=== PATIENT | male | born 1940 | race Hispanic/Latino ===

== ENCOUNTER → 2019-03-24 | Outpatient (CLI) | payer MEDICARE, OTHER ==
[~2019-03-24] MED LIST: ADVAIR 100-501 EACH; ALBUTEROL0.63 MG/3; ASPIRIN81 MG; ATORVASTATIN CA20 MG PO; CLOBETASOL1 EA/15 GM; FUROSEMIDE20 MG; GABAPENTIN300 MG PO; GLIPIZIDE5 MG PO; LISINOPRIL2.5 MG PO; LOSARTAN-HCTZ1 EACH; METFORMIN HCL500 MG PO; PRAVASTATIN SOD10 MG PO; RISPERIDONE1 MG
[2019-03-24 13:10] LABS: BASOPHILS % 0.6 % (0.0-1.0); EOSINOPHILS # (AUTO) 0.2 (0.0-0.4); EOSINOPHILS % 2.4 % (0.0-6.0); HEMATOCRIT 30.6 % (38.2-49.6); LYMPHOCYTES # (AUTO) 1.3 (1.0-3.2); LYMPHOCYTES % 17.7 % (18.0-39.1); MEAN CORPUSCULAR HEMOGLOBIN 28.5 pg (28-32); MEAN CORPUSCULAR HGB CONC 32.7 g/dL (31-35); MEAN CORPUSCULAR VOLUME 87.2 fL (81-99); MONOCYTES # (AUTO) 0.8 (0.2-0.8); MONOCYTES % 11.3 % (4.4-11.3); NEUTROPHILS # (AUTO) 4.9 (2.1-6.9); NEUTROPHILS % 67.7 % (38.7-80.0); PLATELET COUNT 235 x10e3/uL (140-360); RED BLOOD COUNT 3.51 x10e6/uL (4.3-5.7); RED CELL DISTRIBUTION WIDTH 13.8 % (11.7-14.4)
== END ==
LOC: DX 11:28 → EDSTATUS 03-27 08:30
PROVIDERS: ATTEND Internal Medicine Gastroenterology
DX: Z01.818 Encounter for other preprocedural examination (principal); Z12.11 Encounter for screening for malignant neoplasm of colon; E11.9 Type 2 diabetes mellitus without complications; I10 Essential (primary) hypertension; E66.3 Overweight; Z71.3 Dietary counseling and surveillance
CPT/HCPCS: 36415; 85025; 93005

== ENCOUNTER 2019-07-31 07:39 | Observation (INO) | payer MEDICARE, OTHER ==
[2019-07-28 09:28] LABS: BASOPHILS % 0.6 % (0.0-1.0); EOSINOPHILS # (AUTO) 0.3 (0.0-0.4); EOSINOPHILS % 3.7 % (0.0-6.0); HEMATOCRIT 32.4 % (38.2-49.6); LYMPHOCYTES # (AUTO) 1.6 (1.0-3.2); LYMPHOCYTES % 22.4 % (18.0-39.1); MEAN CORPUSCULAR HEMOGLOBIN 27.5 pg (28-32); MEAN CORPUSCULAR HGB CONC 30.9 g/dL (31-35); MEAN CORPUSCULAR VOLUME 89.3 fL (81-99); MONOCYTES # (AUTO) 0.7 (0.2-0.8); MONOCYTES % 9.7 % (4.4-11.3); NEUTROPHILS # (AUTO) 4.5 (2.1-6.9); NEUTROPHILS % 63.3 % (38.7-80.0); PLATELET COUNT 220 x10e3/uL (140-360); RED BLOOD COUNT 3.63 x10e6/uL (4.3-5.7); RED CELL DISTRIBUTION WIDTH 14.3 % (11.7-14.4)
[2019-07-28 09:41] LABS: INR 0.92; PARTIAL THROMBOPLASTIN TIME 29.1 seconds (23.8-35.5); PROTHROMBIN TIME 12.9 seconds (11.9-14.5)
[2019-07-28 09:49] LABS: ALBUMIN 4.2 g/dL (3.5-5.0); ALBUMIN/GLOBULIN RATIO 1.4 (0.8-2.0); ANION GAP 13.5 mmol/L (8-16); CALCIUM 9.7 mg/dL (8.4-10.2); CHOL/HDL RATIO 2.8 (3.9-4.7); CREATININE, SERUM 1.46 mg/dL (0.72-1.25); POTASSIUM 4.5 mmol/L (3.5-5.1)
[~2019-07-31] VITALS: Ht 167.6 cm; Wt 85.5 kg
[2019-07-31] VITALS (17 sets, daily range): BP systolic 147–202; BP diastolic 59–86
[~2019-07-31 07:39] MED LIST changes: -ALBUTEROL0.63 MG/3; +ALBUTEROL0.63 MG/3 INH; -ASPIRIN81 MG; +ASPIRIN81 MG PO; -FUROSEMIDE20 MG; +FUROSEMIDE20 MG PO
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
--- OUTSIDE RECORDS SUMMARY | 2019-07-31 07:41 | XMS REPORT | Summary of Care ---
Author Author [facility] Organization [facility] Address Unknown Phone Unavailable Encounter HQ Juan Jr_natalia(FIN) [id number] Date(s): 11/14/17 - 11/14/17 [facility] [address] [place] [address]- Encounter Diagnosis Causalgia of left upper limb (Final) - 11/20/17 Discharge Disposition: Home or Self Care Attending Physician: Ric Aguero MD Referring Physician: Ric Aguero MD Vital Signs No data available for this section Problem List No data available for this section Allergies, Adverse Reactions, Alerts No data available for this section Medications No data available for this section Results No data available for this section Immunizations No data available for this section Procedures No data available for this section Social History No data available for this section Assessment and Plan No data available for this section
--- OUTSIDE RECORDS SUMMARY | 2019-07-31 07:41 | XMS REPORT | Summary of Care ---
Author Author [facility] Organization [facility] Address Unknown Phone Unavailable Encounter HQ Juan Jr_natalia(FIN) [id number] Date(s): 07/10/16 - 07/10/16 [facility] - [place] [address] [address], [address] [place] [phone] Discharge Disposition: Home or Self Care Attending Physician: SundayRosi MD Vital Signs No data available for [...]
--- OUTSIDE RECORDS SUMMARY | 2019-07-31 07:42 | XMS REPORT ---
Author Organization Unknown Address [address] [place] [address] Phone [phone] Care Team Providers Care Scrap Carrier Name Role Phone SACHIN "QIAN GALARZA MD 3 [phone] Allergies Code Code System Name Reaction Severity Status Onset 0370 RxNorm Codeine Abdominal Pain Active Medications Name Status Start Date Stop Date Accu-Chek Paige Plus Meter Completed 10/31 Accu-Chek Paige Plus test strips Active Not available Accu-Chek Softclix Lancets Active Not a vailable acetaminophen 300 mg-codeine 30 mg tablet Completed 08/28/2016 amoxicillin 500 mg capsule Completed 01/15 azithromycin 250 mg tablet Completed 08/02 azithromycin 500 mg tablet Completed 01/15 clotrimazole 1 % topical cream APPLY TO THE AFFECTED AND SURROUNDING AREAS OF SKIN BY TOPICAL ROUTE 2 TIMES PER DAY IN THE MORNING AND EVENING Completed 04/24 cyanocobalamin (vitamin B-12) 2,500 mcg tablet Take 1 tablet every day by oral route. Active Not available diltiazem 60 mg tablet Take 1 tablet every 6 hours by oral route as directed for 90 days. Completed 05/02/2016 enalapril maleate 5 mg tablet Take 1 tablet every day by oral route as directed for 90 days. Completed 05/02/2016 famotidine 20 mg tablet Completed 09/07/19 17 ferrous sulfate 325 mg (65 mg iron) tabl et Take 1 tablet every day by oral route for 90 days. Completed 09/06/2016 fluticasone 50 mcg/actuation nasal spray ,suspension USE 2 SPRAY(S) TWICE A DAY BY INTRANASAL ROUTE DIRECTED FOR 30 DAYS Active Not available furosemide 20 mg tablet Active Not avai lable gabapentin 300 mg capsule Completed 2016 gabapentin 400 mg capsule Take 1 capsule 3 times a day by oral route for 30 days. Completed 09/18/2016 gabapentin 600 mg tablet Completed 017 glipizide 5 mg tablet Completed 10/31/2016 glipizide ER 5 mg tablet, extended relea se 24 hr take 1 tablet once a day with breakfast Active Not available ketoconazole 2 % topical cream APPLY TO THE AFFECTED AREA(S) BY TOPICAL ROUTE ONCE DAILY Active Not available Linzess 145 mcg capsule Take 1 capsule every day by oral route for 13 days. Completed 01/15/2017 lisinopril 2.5 mg tablet Take 1 tablet by mouth once a day Completed 12/19 losartan 50 mg-hydrochlorothiazide 12.5 mg tablet Take 1 tablet every day by oral route Active N ot available Lyrica 100 mg capsule 1 PO in a.m. and 1 PO at noon Active Not avail able Lyrica 50 mg capsule Take 1 capsule every day by oral route at bedtime. Active Not available Lyrica 75 mg capsule Take 1 capsule twice a day by oral route for 7 days. Completed 01/18/2017 megestrol 400 mg/10 mL (40 mg/mL) oral suspension Completed 10/31/2016 meloxicam 15 mg tablet Completed 8 metformin 1,000 mg tablet TAKE 1 TAB TWICE A DAY Active Not available methylprednisolone 4 mg tablets in a dose pack Completed 03/31/2016 05/02/2016 Milk of Magnesia 400 mg/5 mL oral suspen donna take 1 tablespoons once at bedtime Completed 12/19 montelukast 10 mg tablet Take 1 tablet every day by oral route as directed for 90 days. Completed 05/02/2016 Movantik 25 mg tablet Take 1 tablet every day by oral route for 90 days. Completed 09/06/2016 Nasonex 50 mcg/actuation Perry Perry 2 sprays every day by intranasal route for 90 days. Completed 04/24/2017 nortriptyline 10 mg capsule Completed 08/18 omeprazole 40 mg capsule,delayed release Completed 09/06/2016 ondansetron 8 mg disintegrating tablet Completed 11/07/2016 ondansetron HCl 8 mg tablet Completed 08/17 potassium chloride 10MEQ TAKE ONE TABLET ONCE DAILY Completed 05/15 potassium chloride ER 10 mEq tablet,exte nded release 10 MEQ TAKE ONE TABLET ONCE DAILY Completed 10/13 potassium chloride ER 10 mEq tablet,extended release(part/cryst) Completed 10/02/2016 potassium chloride ER 20 mEq tablet,exte nded release Take 1 tablet every day by oral route for 90 days. Active Not available pravastatin 20 mg tablet take 1 tablet once a day Active Not available ProAir HFA 90 mcg/actuation aerosol inhaler Completed 05/02/2016 quetiapine 25 mg tablet Completed 03/31/19 17 sulfamethoxazole 800 mg-trimethoprim 160 mg tablet Completed 08/28/2016 Tessalon Perles 100 mg capsule Take 1 capsule 3 times a day by oral route as needed for 10 days. Completed 08/02/2016 tramadol 50 mg tablet TAKE 1 TABLET(S) EVERY 8 HOURS BY ORAL ROUTE NEEDED FOR 30 DAYS. Active Not available trazodone 100 mg tablet Completed 08/29/19 17 triamcinolone acetonide 0.1 % topical cream Active Not available Vitamin C 1,000 mg tablet Take 1 tablet every day by oral route as directed. Completed 09/06/2016 Vitamin D3 1,000 unit capsule Take 1 capsule every day by oral route. Completed 10/13/2016 vitamin E (dl, acetate) 400 unit capsule Take 1 capsule every day by oral route. Completed 10/31/2016 vitamin E 400 unit capsule Take 1 capsule every day by oral route. 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 Psoriasis Active 11/07/2016 Obstructive Sleep Apnea Syndrome Active 02/15/2017 Procedures Date Name Performed by 03/19/2015 Cholecystectomy Information not avai lable 03/31/2016 Electrocardiogram [facility] [address] [facility] [address] [place] [address] (Work [place]) 08/24/2016 US, Abdomen [facility]) [address] [place], [place] [id number] (Work Place) 08/28/2016 US, Abdomen [facility] [address] [facility] [address] [place] [address] (Work Place) 08/30/2016 US, Abdomen [address] [place] [id number] (Work Place) 06/07/2017 US, Echocardiogram, Transthoracic, Compl ete, W/ Color Flow [address] [place] [address] (Work Place) 05/25/[address] [place] [address] (Work Place) 05/30/2017 US, Echocardiogram, Transthoracic, Compl ete, W/ Color Flow [address] [place] [address] (Work Place) Lab Results Date Name Specimen Result Interpretation Description Value Range Status Address 01/15/2017 HbA1C (Hemoglobin a1C), Blood High Hemogl obin a1C 7.7 % 4.8-5.6 % Final [facility]: [address] Estim. Avg Glu (EAG) 174 mg/dL Final [facility] Laboratory: [address]055 Araceli Gilliam [address] [place] [address] 01/15/2017 CBC W/ Auto Diff Wbc 8.3 x10e3/uL 3.4- 10.8 x10e3/uL Final [facility] Laboratory: [address]055 [address] Tony [address] Rbc 4.20 x10e6/uL 4.14-5.80 x10e6/u L Final [facility] Laboratory: 9055 Arac[address] [place] [address] Low Hemoglobin 11.7 g/dL 12.6-17.7 g/dL Final [facility] Laboratory: [address] Tony [address] Low Hematocrit 35.1 % 37.5-51.0 % Final [facility] Laboratory: [address] Arac[address] [place] [address] Mcv 84 fL 79-97 fL Final [facility] Laboratory: [address] Mch 27.9 pg 26.6-33.0 pg Final [facility] Laboratory: [address]055 [address] Mchc 33.3 g/dL 31.5-35.7 g/dL Final [facility] Laboratory: [address] Rdw 13.4 % 12.3-15.4 % Final [facility] Laboratory: [address] Ar[address] [place] Platelets 351 x10e3/uL 150-379 x10e3 /uL Final [facility] Laboratory: [address] [place] Neutrophils 57 % not estab. % Flaca l [facility] Laboratory: [address] [place] Lymphs 24 % not estab. % Final [facility] Laboratory: 9055 Araceli Patel, [place] Monocytes 8 % not estab. % Final [facility] Laboratory: [address] Ar[address] Patel, [place] Eos 10 % not estab. % Final [facility] Laboratory: 9055 Araceli Tony [facility] [place], [place] Basos 1 % not estab. % Final Rosemarie alejandro [facility] Laboratory: [address] Pat[address] [place] Immature Cells comment Cancel led [facility] Laboratory: [address] [place] Neutrophils (Absolute) 4.8 x10e3/uL 1.4-7.0 x10e3/uL Final [facility] Laboratory: [address] [place] Lymphs (Absolute) 2.0 x10e3/uL 0.7-3 .1 x10e3/uL Final [facility] Laboratory: [address] [place] Monocytes(absolute) 0.7 x10e3/uL 0.1 -0.9 x10e3/uL Final [facility] Laboratory: [address] Araceli Gilliam [facility] [place] High Eos (Absolute) 0.8 x10e3/uL 0.0-0.4 x10e3/uL Final [facility] Laboratory: [address] [place] Baso (Absolute) 0.1 x10e3/uL 0.0-0.2 x10e3/uL Final [facility] Laboratory: [address] [place] Immature Granulocytes 0 % not est ab. % Final [facility] Laboratory: [address] [place] Immature Grans (Abs) 0.0 x10e3/uL 0. 0-0.1 x10e3/uL Final [facility] Laboratory: [address] Hematology Comments: comment Cancelled [facility] [address] [facility] Lipid Panel, Serum Cholesterol, Tota l 148 mg/dL 100-199 mg/dL Final [facility]: [address] Araceli Gilliam [facility] [place] High Triglycerides 182 mg/dL 0-149 mg/dL Final [facility] Laboratory: [address] Ar[address] Tony [place] [address], [place] HDL Cholesterol 49 mg/dL >39 mg/dL [facility] Laboratory: [address] Tony [place] [address] [place] VLDL Cholesterol Julio 36 mg/dL 5-40 m g/dL Final [facility] Laboratory: [address] Ar[address]ha [address] LDL Cholesterol Calc 63 mg/dL 0-99 m g/dL Final [facility] Laboratory: [address] Ar[address] [place] [address] [place] 01/15/2017 CMP, Serum or Plasma High Glucose, Serum 165 mg/dL 65-99 mg/dL Final [facility] Laboratory: [address] Araceli Gilliam [facility] [place] Bun 26 mg/dL 8-27 mg/dL Final [facility] Laboratory: [address] Ar[address] [place] [address] [place] Creatinine, Serum 1.12 mg/dL 0.76-1. 27 mg/dL Final [facility] Laboratory: [address] Araceli Gilliam [facility] [place] eGFR If Nonafricn AM 64 mL/min/1.73 >59 mL/min/1.73 Final [facility] Laboratory: [address] Tony [place] [address] [place] eGFR If Africn AM 74 mL/min/1.73 >59 mL/min/1.73 Final [facility] Laboratory: [address] Tony [place] [address] [place] BUN/creatinine Ratio 23 10-24 [facility] Laboratory: 9055 Araceli Gilliam [facility] [place] Sodium, Serum 136 mmol/L 134-144 mmo l/L Final [facility] Laboratory: [address] Araceli Gilliam [facility] [place] High Potassium, Serum 5.4 mmol/L 3.5-5.2 mmol/L Final [facility] Laboratory: [address] Patel [place] Low Chloride, Serum 94 mmol/L 96-106 mmo l/L Final [facility] Laboratory: [address] Araceli Gilliam [facility] [place] Carbon Dioxide, Total 26 mmol/L 18-2 9 mmol/L Final [facility] Laboratory: [address] [place] [address] [place] Calcium, Serum 9.5 mg/dL 8.6-10.2 mg /dL Final [facility] Laboratory: [address] Protein, Total, Serum 7.0 g/dL 6.0-8 .5 g/dL Final [facility] Laboratory: [address] Ar[address] F[address]ha [address] Albumin, Serum 4.7 g/dL 3.5-4.8 g/dL Final [facility] Laboratory: [address] Globulin, Total 2.3 g/dL 1.5-4.5 g/d L Final [facility] Laboratory: [address] Ar[address] F[address] A/g Ratio 2.0 1.2-2.2 Final [facility] Laboratory: 55 Ar[address] Bilirubin, Total <0.2 mg/dL 0.0-1.2 mg/dL Final [facility] Laboratory: [facility] Araceli Fwporsha [address] Alkaline Phosphatase, S 97 IU/L 39-1 17 IU/L Final [facility] Laboratory: [facility] Araceli Fwporsha [address] Ast (Sgot) 14 IU/L 0-40 IU/L Final [facility] Laboratory: [facility] Arac[address] Alt (Sgpt) 16 IU/L 0-44 IU/L Final [facility] Laboratory: [facility] Araceli porsha [address] 10/05/2016 Fecal Occult Blood, Stool Fecal Globin (Medicare) by Immunochemistry not detected Final [facility] Laboratory: [address] [place] [address] 08/24/2016 H Pylori Urea Breath Test, Co2 Infrared H. Pylori Breath Test negative negative Final [facility] Laboratory: [facility] Araceli porsha [address] 08/02/2016 CMP, Serum or Plasma High Glucose, Serum 238 mg/dL 65-99 mg/dL Final [facility] Laboratory: 55 Ar[address] porsha [address] Bun 27 mg/dL 8-27 mg/dL Final [facility] Laboratory: 55 Araceli Fwporsha [address] High Creatinine, Serum 1.29 mg/dL 0.76-1. 27 mg/dL Final [facility] Laboratory: [address] [place], [place] [address]porsha [address] Low eGFR If Nonafricn AM 54 mL/min/1.73 >59 mL/min/1.73 Final [facility] Laboratory: [address] Araceli Patel [place] eGFR If Africn AM 62 mL/min/1.73 >59 mL/min/1.73 Final [facility] Laboratory: 9055 Araceli Patel, [place] BUN/creatinine Ratio 21 10-[address] [facility] Laboratory: 9055 Araceli Patel, [place] Sodium, Serum 137 mmol/L 134-144 mmo l/L Final [facility] Laboratory: 9055 Araceli Patel, [place] Potassium, Serum 5.0 mmol/L 3.5-5.2 mmol/L Final [facility] Laboratory: 9055 Araceli Patel, [place] Chloride, Serum 96 mmol/L 96-106 mmo l/L Final [facility] Laboratory: [address] Arac[address] Patel [place] Carbon Dioxide, Total 22 mmol/L 18-2 9 mmol/L Final [facility] Laboratory: [address] Silas Ivan Calcium, Serum 9.5 mg/dL 8.6-10.2 mg /dL Final [facility] Laboratory: 9055 Araceli Patel, [place] Protein, Total, Serum 6.9 g/dL 6.0-8 .5 g/dL Final [facility] Laboratory: 9055 Araceli Patel, [place] Albumin, Serum 4.6 g/dL 3.5-4.8 g/dL Final [facility] Laboratory: 9055 Araceli Patel, [place] Globulin, Total 2.3 g/dL 1.5-4.5 g/d L Final [facility] Laboratory: [address] Ar[address] Patel [place] A/g Ratio 2.0 1.2-2.2 Final [facility] Laboratory: 9055 Araceli Patel, [place] Bilirubin, Total 0.2 mg/dL 0.0-1.2 m g/dL Final [facility] Laboratory: [address] Ar[address] Patel [place] Alkaline Phosphatase, S 99 IU/L 39-1 17 IU/L Final [facility] Laboratory: 9055 Araceli Patel, [place] Ast (Sgot) 11 IU/L 0-40 IU/L [facility] Laboratory: 9055 Araceli Patel [place] Alt (Sgpt) 13 IU/L 0-44 IU/L Final [facility] Laboratory: [address] [place] [address], [place] 08/02/2016 TSH, Serum or Plasma Tsh 1.400 uI U/mL 0.450-4.500 uIU/mL Final [facility] Laboratory: [address] [place] [address], [place] 08/02/2016 Lipid Panel, Serum Cholesterol, Tota l 138 mg/dL 100-199 mg/dL Final [facility]: [address] High Triglycerides 179 mg/dL 0-149 mg/dL Final [facility] Laboratory: [address] HDL Cholesterol 43 mg/dL >39 mg/dL F inal [facility] Laboratory: [address] VLDL Cholesterol Julio 36 mg/dL 5-40 m g/dL Final [facility] Laboratory: [address] LDL Cholesterol Calc 59 mg/dL 0-99 m g/dL Final [facility] Laboratory: [address] 08/02/2016 HbA1C (Hemoglobin a1C), Blood High Hemogl obin a1C 6.8 % 4.8-5.6 % Final [facility]: [address] Estim. Avg Glu (EAG) 148 mg/dL Final [facility] Laboratory: [address] [place] [address], [place] 08/02/2016 T4, Total, Serum Thyroxine (T4) 7.2 ug/dL 4.5-12.0 ug/dL Final [facility] Laboratory: [address] 08/02/2016 Prealbumin, Serum Prealbumin 29 mg/dL 9 -32 mg/dL Final [facility] Laboratory: [address] [place] [address], [place] 08/02/2016 CBC W/ Auto Diff Wbc 7.1 x10e3/uL 3.4- 10.8 x10e3/uL Final [facility] Laboratory: [address] Rbc 4.32 x10e6/uL 4.14-5.80 x10e6/u L Final [facility] Laboratory: [address] Low Hemoglobin 12.2 g/dL 12.6-17.7 g/dL Final [facility] Laboratory: [address] Low Hematocrit 36.6 % 37.5-51.0 % Final [facility] Laboratory: [address]055 Araceli Patel, [place] Mcv 85 fL 79-97 fL Final [facility] Laboratory: [address] Araceli Patel, [place] Mch 28.2 pg 26.6-33.0 pg Final [facility] Laboratory: 9055 Araceli Patel, [place] Mchc 33.3 g/dL 31.5-35.7 g/dL Final [facility] Laboratory: 9055 Araceli Patel, [place] Rdw 14.0 % 12.3-15.4 % Final [facility] Laboratory: [address] Ivan Platelets 297 x10e3/uL 150-379 x10e3 /uL Final [facility] Laboratory: [address]055 Araceli Patel, [place] Neutrophils 68 % Final [facility] Laboratory: [address] Lymphs 20 % Final [facility] Laboratory: [address]055 Araceli Patel, [place] Monocytes 11 % Final [facility] Laboratory: 9055 Araceli Patel, [place] Eos 1 % Final [facility] Laboratory: 9055 Araceli Patel, [place] Basos 0 % Final [facility] Laboratory: [address]055 Araceli Patel [place] Immature Cells comment Cancel led [facility] Laboratory: [address]055 Arac[address] Patel [place] Neutrophils (Absolute) 4.8 x10e3/uL 1.4-7.0 x10e3/uL Final [facility] Laboratory: [address] Ivan Lymphs (Absolute) 1.4 x10e3/uL 0.7-3 .1 x10e3/uL Final [facility] Laboratory: 9055 Araceli Patel, [place] Monocytes(absolute) 0.8 x10e3/uL 0.1 -0.9 x10e3/uL Final [facility] Laboratory: 9055 Araceli Patel, [place] Eos (Absolute) 0.1 x10e3/uL 0.0-0.4 x10e3/uL Final [facility] Laboratory: [address]055 Araceli Patel, [place] Baso (Absolute) 0.0 x10e3/uL 0.0-0.2 x10e3/uL Final [facility] Laboratory: [address] Immature Granulocytes 0 % Final [facility] Laboratory: [address] Immature Grans (Abs) 0.0 x10e3/uL 0. 0-0.1 x10e3/uL Final [facility] Laboratory: [address] Hematology Comments: comment Cancelled [facility] Laboratory: [address] 04/05/2016 CBC W/ Auto Diff White Blood Cell 6 .3 K/mm3 4.5-12.5 K/mm3 Final [facility] (Lab): [address], [place] Low Red Blood Cell 3.65 mill/mm3 4.0-5.8 mill/mm3 Final [facility] (Lab): [address], [place] Low Hemoglobin 10.4 gram/dL 13.0-17.5 gr am/dL Final [facility] (Lab): [address], [place] Low Hematocrit 31.7 % 42.0-52.0 % Final [facility] (Lab): [address], [place] Mean Cell Volume 86.9 fL 80.4-[address] [facility] (Lab): [address], [place] Mean Cell HGB 28.5 pg 27.0-33.[address] [facility] (Lab): [address], [place] Low Mean Cell HGB Concetration 32.8 g/dL 33.0-36.0 g/dL Final [facility] (Lab): [address], [place] Red Cell Distribution Width 15.8 % 1 1.6-16.2 % Final [facility] (Lab): [address], [place] Platelet Count 162 K/mm3 150-450 K/m m[address] [facility] (Lab): [address], [place] Mean Platelet Volume 8.4 fL 6.7-10.[address] [facility] (Lab): [address], [place] High Neutrophil % 78.0 % 39.0-69.0 % [facility] [facility] (Lab): [address], [place] Low Lymphocyte % 12.4 % 23.0-38.0 % [facility] [address], [place] Monocyte % 7.0 % 3.0-8.0 % [facility] (Lab): [address], [place] Eosinophil % 2.3 % 0.0-5.0 % Final [facility] (Lab): [address], [place] Basophil % 0.3 % 0.0-1.0 % Final [facility] (Lab): [address], [place] Neutrophil # 4.90 K/mm3 1.8-7.7 K/mm [address] [facility] (Lab): [address], [place] Low Lymphocyte # 0.8 K/mm3 1.0-5.0 K/mm3 [facility] (Lab): [address], [place] Monocyte # 0.40 K/mm3 0-0.8 K/mm3 [facility] (Lab): [address], [place] Eosinophil # 0.1 K/mm3 0.0-0.5 K/mm3 [facility] (Lab): [address], [place] Basophil # 0.0 K/mm3 0.0-0.2 K/mm3 [facility] (Lab): [address], [place] Performing Lab: [facility] (Lab): [address], [place] 04/05/2016 BMP, Blood Sodium 141 mmol/L 135-148 mm ol/L [facility] (Lab): [address], [place] Potassium 4.3 mmol/L 3.5-5.1 mmol/L [facility] (Lab): [address], [place] Chloride 106 mmol/L 101-109 mmol/L [facility] (Lab): [address], [place] Carbon Dioxide 29.9 mmol/L 21-32 mmo l/L [facility] (Lab): [address], [place] Low Anion Gap 5 mmol/L 10-20 mmol/L Flaca l [facility] (Lab): [address], [place] High Glucose 206 mg/dL 74-106 mg/dL Final [facility] (Lab): [address], [place] Blood Urea Nitrogen 16 mg/dL 3-21 mg /dL Final [facility] (Lab): [address], [place] Glomerular Filtration Rate > 60 mL/m in >=60 mL/min Final [facility] (Lab): [address], [place] Creatinine 0.99 mg/dL 0.55-1.3 mg/dL Final [facility] (Lab): [address], [place] Low Calcium 8.1 mg/dL 8.4-10.2 mg/dL Fin al [facility] (Lab): [address] [place] Performing Lab: Final [facility] (Lab): [address], [place] 04/05/2016 Glucose, Fingerstick, Blood (Glucometer) High Glubed 192 mg/dL 74-106 mg/dL Final [facility] (Lab ): [address] [place] Performing Lab: Final [facility] (Lab): [address], [place] 04/05/2016 Glucose, Fingerstick, Blood (Glucometer) High Glubed 347 mg/dL 74-106 mg/dL Final [facility] (Lab ): [address] [place] Performing Lab: Final [facility] (Lab): [address], [place] 04/05/2016 Glucose, Fingerstick, Blood (Glucometer) High Glubed 177 mg/dL 74-106 mg/dL Final [facility] (Lab ): [address] [place] Performing Lab: Final [facility] (Lab): [address], [place] 04/04/2016 Glucose, Fingerstick, Blood (Glucometer) Glubed 103 mg/dL 74- 106 mg/dL Final [facility] (Lab ): [address], [place] Performing Lab: Final [facility] (Lab): [address], [place] 04/04/2016 Glucose, Fingerstick, Blood (Glucometer) High Glubed 238 mg/dL 74-106 mg/dL Final [facility] (Lab ): [address], [place] Performing Lab: Final [facility] (Lab): [address], [place] 04/04/2016 Glucose, Fingerstick, Blood (Glucometer) High Glubed 226 mg/dL 74-106 mg/dL Final [facility] (Lab ): [address], [place] Performing Lab: Final [facility] (Lab): [address], [place] 04/04/2016 Glucose, Fingerstick, Blood (Glucometer) High Glubed 125 mg/dL 74-106 mg/dL Final [facility] (Lab ): [address], [place] Performing Lab: Final [facility] (Lab): [address], [place] 04/03/2016 CBC W/ Auto Diff White Blood Cell 9 .3 K/mm3 4.5-12.5 K/mm3 Final [facility] (Lab): [address], [place] Low Red Blood Cell 3.60 mill/mm3 4.0-5.8 mill/mm3 Final [facility] (Lab): [address], [place] Low Hemoglobin 10.3 gram/dL 13.0-17.5 gr am/dL Final [facility] (Lab): [address], [place] Low Hematocrit 31.3 % 42.0-52.0 % Final [facility] (Lab): [address], [place] Mean Cell Volume 86.9 fL 80.4-[address] [facility] (Lab): [address], [place] Mean Cell HGB 28.6 pg 27.0-33.[address] [facility] (Lab): [address], [place] Low Mean Cell HGB Concetration 32.9 g/dL 33.0-36.0 g/dL Final [facility] (Lab): [address], [place] Red Cell Distribution Width 15.2 % 1 1.6-16.2 % Final [facility] (Lab): [address], [place] Platelet Count 192 K/mm3 150-450 K/m m[address] [facility] (Lab): [address], [place] Mean Platelet Volume 8.6 fL 6.7-10.[address] [facility] (Lab): [address], [place] High Neutrophil % 79.2 % 39.0-69.0 % [facility] (Lab): [address], [place] Low Lymphocyte % 9.4 % 23.0-38.0 % [facility] (Lab): [address], [place] High Monocyte % 8.8 % 3.0-8.0 % [facility] (Lab): [address], [place] Eosinophil % 2.2 % 0.0-5.0 % [facility] (Lab): [address], [place] Basophil % 0.4 % 0.0-1.0 % [facility] (Lab): [address], [place] Neutrophil # 7.30 K/mm3 1.8-7.7 K/mm 3 [facility] (Lab): [address], [place] Low Lymphocyte # 0.9 K/mm3 1.0-5.0 K/mm3 [facility] (Lab): [address], [place] Monocyte # 0.80 K/mm3 0-0.8 K/mm3 [facility] (Lab): [address], [place] Eosinophil # 0.2 K/mm3 0.0-0.5 K/mm3 [facility] (Lab): [address], [place] Basophil # 0.0 K/mm3 0.0-0.2 K/mm3 F inal [facility] (Lab): [address], [place] Performing Lab: Final [facility] (Lab): [address], [place] 04/03/2016 BMP, Blood Sodium 141 mmol/L 135-148 mm ol/L Final [facility] (Lab): [address], [place] Potassium 4.1 mmol/L 3.5-5.1 mmol/L Final [facility] (Lab): [address], [place] Chloride 106 mmol/L 101-109 mmol/L F inal [facility] (Lab): [address], [place] Carbon Dioxide 26.2 mmol/L 21-32 mmo l/L Final [facility] (Lab): [address], [place] Low Anion Gap 9 mmol/L 10-20 mmol/L Flaca l [facility] (Lab): [address], [place] Glucose 106 mg/dL 74-106 mg/dL Final [facility] (Lab): [address], [place] High Blood Urea Nitrogen 25 mg/dL 3-21 mg /dL Final [facility] (Lab): [address], [place] Glomerular Filtration Rate 60 mL/min >=60 mL/min Final [facility] (Lab): [address], [place] Creatinine 1.19 mg/dL 0.55-1.3 mg/dL Final [facility] (Lab): [address], [place] Low Calcium 7.7 mg/dL 8.4-10.2 mg/dL Fin al [facility] (Lab): [address], [place] Performing Lab: Final [facility] (Lab): [address], [place] 04/03/2016 Phosphate, QN, Blood Normal Phosphorus 3.9 mg/dL 2.6-4.7 mg/dL Final [facility] (Lab): [address], [place] Performing Lab: Final [facility] (Lab): [address], [place] 04/03/2016 Magnesium, QN, Serum or Plasma Normal Magne sium 2.0 mg/dL 1.6- 2.3 mg/dL Final [facility] (Lab ): [address] Performing Lab: Final [facility] (Lab): [address] 04/03/2016 Glucose, Fingerstick, Blood (Glucometer) Glubed 86 mg/dL 74- 106 mg/dL Final [facility] (Lab ): [address] Performing Lab: Final [facility] (Lab): [address] 04/03/2016 Glucose, Fingerstick, Blood (Glucometer) High Glubed 413 mg/dL 74-106 mg/dL Final [facility] (Lab ): [address] Performing Lab: Final [facility] (Lab): [address] 04/03/2016 Glucose, Fingerstick, Blood (Glucometer) High Glubed 216 mg/dL 74-106 mg/dL Final [facility] (Lab ): [address] Performing Lab: Final [facility] (Lab): [address] 04/03/2016 Glucose, Fingerstick, Blood (Glucometer) High Glubed 115 mg/dL 74-106 mg/dL Final [facility] (Lab ): [address] Performing Lab: Final [facility] (Lab): [address] 04/02/2016 HbA1C (Hemoglobin a1C), Blood High Glycosylated Hemoglobin (Ha1C) 8.1 % 4.5-6.2 % Final [facility] (Lab): [address] Estimated Average Glucose 186 mg/dL Final [facility] (Lab): [address] Performing Lab: Final [facility] (Lab): [address] 04/02/2016 Glucose, Fingerstick, Blood (Glucometer) High Glubed 222 mg/dL 74-106 mg/dL Final [facility] (Lab ): [address] Performing Lab: Final [facility] (Lab): [address] [place] 04/02/2016 Glucose, Fingerstick, Blood (Glucometer) High Glubed 301 mg/dL 74-106 mg/dL Final [facility] (Lab ): [address] [place] Performing Lab: Final [facility] (Lab): [address] [place] 04/02/2016 Glucose, Fingerstick, Blood (Glucometer) High Glubed 183 mg/dL 74-106 mg/dL Final [facility] (Lab ): [address] [place] Performing Lab: Final [facility] (Lab): [address] [place] 04/02/2016 Glucose, Fingerstick, Blood (Glucometer) High Glubed 304 mg/dL 74-106 mg/dL Final [facility] (Lab ): [address] [place] Performing Lab: Final [facility] (Lab): [address] [place] 04/01/2016 Troponin I, Serum or Plasma Panic High tropo wang-I 0.06 NG/mL 0.00-0.056 NG/mL Final [facility] (Lab ): [address] [place] Performing Lab: Final [facility] (Lab): [address] [place] 04/01/2016 CBC W/ Auto Diff White Blood Cell 1 1.4 K/mm3 4.5-12.5 K/mm3 Final [facility] (Lab): [address] [place] Red Blood Cell 4.23 mill/mm3 4.0-5.8 mill/mm3 Final [facility] (Lab): [address] [place] Low Hemoglobin 11.7 gram/dL 13.0-17.5 gr am/dL Final [facility] (Lab): [address] [place] Low Hematocrit 36.8 % 42.0-52.0 % Final [facility] (Lab): [address], [place] Mean Cell Volume 86.9 fL 80.4-[address] [facility] (Lab): [address], [place] Mean Cell HGB 27.6 pg 27.0-33.[address] [facility] [facility] (Lab): [address], [place] Low Mean Cell HGB Concetration 31.7 g/dL 33.0-36.0 g/dL Final [facility] (Lab): [address], [place] Red Cell Distribution Width 14.8 % 1 1.6-16.2 % Final [facility] (Lab): [address], [place] Platelet Count 233 K/mm3 150-450 K/m m[address] [facility] (Lab): [address], [place] Mean Platelet Volume 8.5 fL 6.7-10.[address] [facility] (Lab): [address], [place] High Neutrophil % 79.6 % 39.0-69.0 % [facility] (Lab): [address], [place] Low Lymphocyte % 10.5 % 23.0-38.0 % [facility] (Lab): [address], [place] Monocyte % 7.6 % 3.0-8.0 % [facility] (Lab): [address], [place] Eosinophil % 1.6 % 0.0-5.0 % [facility] (Lab): [address], [place] Basophil % 0.7 % 0.0-1.0 % [facility] (Lab): [address], [place] High Neutrophil # 9.10 K/mm3 1.8-7.7 K/mm 3 [facility] (Lab): [address], [place] Lymphocyte # 1.2 K/mm3 1.0-5.0 K/mm3 [facility] (Lab): [address], [place] High Monocyte # 0.90 K/mm3 0-0.8 K/mm3 [facility] (Lab): [address], [place] Eosinophil # 0.2 K/mm3 0.0-0.5 K/mm3 [facility] (Lab): [address] [place] Basophil # 0.1 K/mm3 0.0-0.2 K/mm3 F [facility] (Lab): [address] [place] Manual Diff Required no F machiasl [facility] (Lab): [address], [place] Performing Lab: Final [facility] (Lab): [address], [place] 04/01/2016 BMP, Blood Sodium 136 mmol/L 135-148 mm ol/L Final [facility] (Lab): [address], [place] Potassium 4.2 mmol/L 3.5-5.1 mmol/L [facility] (Lab): [address], [place] Low Chloride 99 mmol/L 101-109 mmol/L Fi nal [facility] (Lab): [address], [place] Carbon Dioxide 31.2 mmol/L 21-32 mmo l/L [facility] (Lab): [address], [place] Low Anion Gap 6 mmol/L 10-20 mmol/L Flaca l [facility] (Lab): [address], [place] High Glucose 155 mg/dL 74-106 mg/dL [facility] (Lab): [address], [place] High Blood Urea Nitrogen 25 mg/dL 3-21 mg /dL [facility] (Lab): [address], [place] Glomerular Filtration Rate > 60 mL/m in >=60 mL/min [facility] (Lab): [address], [place] Creatinine 0.93 mg/dL 0.55-1.3 mg/dL [facility] (Lab): [address], [place] Low Calcium 8.1 mg/dL 8.4-10.2 mg/dL Fin al [facility] (Lab): [address], [place] Performing Lab: Final [facility] (Lab): [address] [place] 04/01/2016 Glucose, Fingerstick, Blood (Glucometer) High Glubed 212 mg/dL 74-106 mg/dL Final [facility] (Lab ): [address] Performing Lab: Final [facility] (Lab): [address] [place] 04/01/2016 Glucose, Fingerstick, Blood (Glucometer) High Glubed 183 mg/dL 74-106 mg/dL Final [facility] (Lab ): [address] Performing Lab: Final [facility] (Lab): [address] [place] 04/01/2016 Influenza a Ag, Qual, Nasal NASAL Influenz a a Ag see below Final [facility] (Lab): [address] NASAL Performing Lab: Final [facility] (Lab): [address] 04/01/2016 Influenza B Ag, Nasopharyngeal NASAL Influ bibiana B Ag see below Final [facility] (Lab ): [address] NASAL Performing Lab: Final [facility] (Lab): [address] [place] 03/31/2016 Ctni Istat Troponin I Rapid 0.04 NG/mL <0.08 NG/mL Final [facility] (Lab): [address] Performing Lab: Final [facility] (Lab): [address] [place] 03/31/2016 BNP iStat BNP Rapid 77 pg/mL 0-100 pg/m L Final [facility] (Lab): [address] Performing Lab: Final [facility] (Lab): [address] [place] 03/31/2016 CBC W/ Auto Diff High White Blood Cell 1 4.1 K/mm3 4.5-12.5 K/mm3 Final [facility] (Lab ): [address] Red Blood Cell 4.24 mill/mm3 4.0-5.8 mill/mm3 Final [facility] (Lab): [address] Low Hemoglobin 12.1 gram/dL 13.0-17.5 gr am/dL Final [facility] (Lab): [address], [place] Low Hematocrit 37.1 % 42.0-52.0 % Final [facility] (Lab): [address], [place] Mean Cell Volume 87.5 fL 80.4-[address] [facility] [facility] (Lab): [address], [place] Mean Cell HGB 28.5 pg 27.0-33.[address] [facility] [facility] (Lab): [address], [place] Low Mean Cell HGB Concetration 32.6 g/dL 33.0-36.0 g/dL Final [facility] (Lab): [address], [place] Red Cell Distribution Width 15.0 % 1 1.6-16.2 % Final [facility] (Lab): [address], [place] Platelet Count 265 K/mm3 150-450 K/m m3 [address] [facility] (Lab): [address], [place] Mean Platelet Volume 8.8 fL 6.7-10.[address] [facility] [facility] (Lab): [address], [place] High Neutrophil % 87.0 % 39.0-69.0 % [facility] (Lab): [address], [place] Low Lymphocyte % 3.7 % 23.0-38.0 % [facility] (Lab): [address], [place] High Monocyte % 8.5 % 3.0-8.0 % [facility] (Lab): [address], [place] Eosinophil % 0.6 % 0.0-5.0 % Final [facility] (Lab): [address], [place] Basophil % 0.2 % 0.0-1.0 % Final [facility] (Lab): [address], [place] High Neutrophil # 12.20 K/mm3 1.8-7.7 K/m m[address] [facility] (Lab): [address], [place] Low Lymphocyte # 0.5 K/mm3 1.0-5.0 K/mm3 Final [facility] (Lab): [address] High Monocyte # 1.20 K/mm3 0-0.8 K/mm3 Fi nal [facility] (Lab): [address], [place] Eosinophil # 0.1 K/mm3 0.0-0.5 K/mm3 Final [facility] (Lab): [address], [place] Basophil # 0.0 K/mm3 0.0-0.2 K/mm3 F inal [facility] (Lab): [address] [place] Performing Lab: Final [facility] (Lab): [address] 03/31/2016 Urinalysis, Complete UA Color light yel low yellow Final [facility] (Lab): [address], [place] UA Appearance clear clear Final B [facility] (Lab): [address], [place] ABNORMAL UA Glucose Dipstick >=500 mg/dL ne gative mg/dL Final [facility] (Lab): [address], [place] UA Bilirubin Dipstick negative mg/dL negative mg/dL Final [facility] (Lab): [address], [place] UA Ketone Dipstick negative mg/dL ne gative mg/dL Final [facility] (Lab): [address], [place] UA Specific [place] 1.015 1.001-1.[address] [facility] [facility] (Lab): [address], [place] UA Blood Dipstick negative negative Final [facility] (Lab): [address], [place] UA pH Dipstick 5.0 5.0-8.[address] [facility] (Lab): [address], [place] UA Protein Dipstick negative mg/dL n egative mg/dL Final [facility] (Lab): [address], [place] UA Urobiliniogen Dipstick negative m g/dL negative mg/dL Final [facility] (Lab): [address], [place] UA Nitrite Dipstick negative negativ e Final [facility] (Lab): [address], [place] UA Leukocyte Esterase W Reflex negat raymond negative Final [facility] (Lab): [address], [place] Ua Wbc 0-5 #/hpf 0-5 #/hpf Final [facility] (Lab): [address], [place] Ua Rbc 0-2 #/hpf 0-5 #/hpf Final [facility] (Lab): [address], [place] UA Mucus few #/lpf few #/lpf Final [facility] (Lab): [address], [place] Performing Lab: Final [facility] (Lab): [address], [place] 03/31/2016 CMP, Serum or Plasma Sodium 136 mmol/L 135-148 mmol/L Final [facility] (Lab): [address], [place] Potassium 4.8 mmol/L 3.5-5.1 mmol/L Final [facility] (Lab): [address], [place] Low Chloride 97 mmol/L 101-109 mmol/L Fi nal [facility] (Lab): [address], [place] Carbon Dioxide 31.8 mmol/L 21-32 mmo l/L [facility] (Lab): [address], [place] Low Anion Gap 7 mmol/L 10-20 mmol/L Flaca l [facility] (Lab): [address], [place] High Glucose 306 mg/dL 74-106 mg/dL [facility] (Lab): [address], [place] High Blood Urea Nitrogen 31 mg/dL 3-21 mg /dL Final [facility] (Lab): [address], [place] Glomerular Filtration Rate 51 mL/min >=60 mL/min Final [facility] (Lab): [address], [place] High Creatinine 1.36 mg/dL 0.55-1.3 mg/dL Final [facility] (Lab): [address], [place] Low Total Protein 5.6 g/dL 6.5-8.4 g/dL Final [facility] (Lab): [address], [place] Low Albumin 3.2 g/dL 3.4-4.8 g/dL Final [facility] (Lab): [address], [place] Globulin 2.4 g/dL 1-10 g/dL Final [facility] (Lab): [address], [place] Albumin/globulin Ratio 1.3 0.75-[address] [facility] (Lab): [address], [place] Low Calcium 7.7 mg/dL 8.4-10.2 mg/dL [facility] (Lab): [address], [place] Bilirubin Total 0.30 mg/dL 0.0-1.0 m g/dL Final [facility] (Lab): [address], [place] SGOT/AST 22 U/L 6-32 U/L Final [facility] (Lab): [address], [place] SGPT/ALT 58 U/L 12-78 U/L Final [facility] (Lab): [address], [place] Alkaline Phosphatase Total 76 U/L 38 -126 U/L Final [facility] (Lab): [address], [place] Performing Lab: [facility] (Lab): [address], [place] 03/31/2016 Lipase, Serum or Plasma Normal Lipase 307 U/L 73.0-393.0 U/L Final [facility] (Lab): [address], [place] Performing Lab: [facility] (Lab): [address], [place] 03/31/2016 Magnesium, QN, Serum or Plasma Normal Magne sium 1.8 mg/dL 1.6- 2.3 mg/dL Final [facility] (Lab ): [address], [place] Performing Lab: [facility] (Lab): [address], [place] 03/31/2016 Glucose, Fingerstick, Blood (Glucometer) High Glubed 193 mg/dL 74-106 mg/dL Final [facility] (Lab ): [address] Performing Lab: Final [facility] (Lab): [address] 03/31/2016 Troponin I, Serum or Plasma Panic High tropo wang-I 0.07 NG/mL 0.00-0.056 NG/mL Final [facility] (Lab ): [address] Performing Lab: Final [facility] (Lab): [address] 03/31/2016 Culture, Urine URINE Urine Culture see below Final [facility] (Lab): [address] URINE Performing Lab: Final [facility] (Lab): [address] 03/31/2016 Culture, Blood BLOOD Blood Culture see below Final [facility] (Lab): [address] BLOOD Performing Lab: Final [facility] (Lab): [address] 03/31/2016 Culture, Blood BLOOD Blood Culture see below Final [facility] (Lab): [address] BLOOD Performing Lab: Final [facility] (Lab): [address] Pulse Oximetry Pulse Ox 98% [facility]: [place] [address], [place] Albumin:creatinine Ratio, Urine Type Urine M icrolalbumin 30 mg/L [facility]: [place] [address], [place] Type Urine Creatinine 100 mg/dL [facility]: [place] [address], [place] Type A:C Ratio 30-300 mg/g (Abnormal ) [facility]: [facility] [address], [place] Electrocardiogram Rate & Rhythm [facility]: [place] [address], [place] Qrs [facility] [place]: [place] [address], [place] MD Interval [facility]: [place] [address], [place] QRS Duration [facility]: [place] [address], [place] QT Interval [facility]: [address] Past Encounters 06/12/2017 Brachial Plexus Neuralgia; Tinea Corporis; Obstructive Sleep Apnea Syndrome ZACHERY Duron: [address] [phone], Ph. 05/30/2017 Dyspnea on Exertion Sachin Galarza MD: [id number] [place] [phone], Ph. 05/25/2017 Seasonal Allergic Rhinitis; Dyspnea on Exertion; Paroxysmal Nocturnal Dyspnea; Obstructive Sleep Apnea Syndrome; Complex Regional Pain Syndrome, Type I; Brachial Plexus Neuralgia Sachin Galarza MD: [id number] [place] [phone], Ph. 04/24/2017 Obstructive Sleep Apnea Syndrome; Type 2 Diabetes Mellitus; Hypercholesterolemia; Brachial Plexus Neuralgia; Hypertensive Disorder Sachin Galarza MD: [id number] [place] [phone], Ph. 04/06/2017 Type 2 Diabetes Mellitus; Hypercholesterolemia; Obstructive Sleep Apnea Syndrome; Congestion of Nasal Sinus Sachin Galarza MD: [id number] [place] [phone], Ph. 03/20/2017 Hypertensive Disorder; Type 2 Diabetes Mellitus; Hypercholesterolemia; Flaccid Paralysis; Atherosclerosis of Aorta; Seasonal Allergic Rhinitis; Tinea Corporis; Obstructive Sleep Apnea Syndrome Sachin Galarza MD: [address] [phone], Ph. 03/01/2017 Hypertensive Disorder; Brachial Plexus Neuralgia; Hypercholesterolemia; Edema of Lower Extremity; Pain of Right Thigh Sachin Galarza MD: [id number] [place] [phone], Ph. 01/31/2017 Disturbance in Sleep Behavior; Insomnia; Type 2 Diabetes Mellitus; Hypercholesterolemia; Brachial Plexus Neuralgia; Psoriasis; Atherosclerosis of Aorta Sachin Galarza MD: [address] [phone], Ph. 01/15/2017 Brachial Plexus Neuralgia; Daytime Somnolence; Insomnia; Type 2 Diabetes Mellitus; Hypercholesterolemia; Hypertriglyceridemia MANDI KendrickP: [address] [place] [phone], Ph. 12/19/2016 Drug-induced Constipation; Complex Regional Pain Syndrome, Type I; Brachial Plexus Neuralgia; Influenza Vaccination Sachin Galarza MD: [address] [place] [phone], Ph. 11/07/2016 Type 2 Diabetes Mellitus; Hypertensive Disorder; Psoriasis; Complex Regional Pain Syndrome, Type I Sachin Galarza MD: [address] [place] [phone], Ph. 10/31/2016 Loss of Appetite; Type 2 Diabetes Mellitus; Brachial Plexus Neuralgia Sachin Galarza MD: [address] [place] [phone], Ph. 10/24/2016 Abnormal Weight Loss; Nausea and Vomiting Sachin Galarza MD: [address] [place] [phone], Ph. 10/13/2016 Type 2 Diabetes Mellitus; Allergic Rhinitis; Insomnia; Complex Regional Pain Syndrome, Type I MANDI KendrickP: [address] [place] [phone], Ph. 10/02/2016 Adult Health Examination; Body Mass Index 25-29 - Overweight; Brachial Plexus Neuralgia; Type 2 Diabetes Mellitus; Mixed Hyperlipidemia; Advance Directive Discussed with Patient; Screening for Malignant Neoplasm of Colon; Screening for Malignant Neoplasm of Prostate; Immunization Sachin Galarza MD: [address] [place] [phone], Ph. 09/18/2016 Complex Regional Pain Syndrome, Type I MANDI KendrickP: [address] [place] [phone], Ph. 09/06/2016 Hypercholesterolemia; Complex Regional Pain Syndrome, Type I; Flaccid Paralysis aSchin Galarza MD: [address] [place] [address], [address] [phone], Ph. 08/30/2016 Abdominal Pain Sachin Galarza MD: [address] [place] [phone], Ph. 08/28/2016 Epigastric Pain; Nausea; Insomnia Shamika MANDI CazaresP: [address] [place] [phone], Ph. 08/24/2016 Epigastric Pain; Anemia; Dermal Mycosis; Nausea; Type 2 Diabetes Mellitus GEMINI Kendrick: [address] [place] [phone], Ph. 08/17/2016 Contact Dermatitis MANDI KendrickP: [address] [place] [phone], Ph. 08/15/2016 Complex Regional Pain Syndrome, Type I; Contact Dermatitis; Infected Insect Bite ZACHERY German: [address] [place] [address], [address] [phone], Ph. 08/08/2016 Complex Regional Pain Syndrome, Type I; Insomnia; Drug-induced Constipation Sachin Galarza MD: [address] [place] [phone], Ph. 08/02/2016 Loss of Appetite; Hypertensive Disorder; Type 2 Diabetes Mellitus; Hypercholesterolemia; Abnormal Weight Loss Sachin Galarza MD: [address] [place] [phone], Ph. 07/14/2016 Upper Respiratory Infection Joce Wilson MD: [address] [place] [phone], Ph. 06/22/2016 Complex Regional Pain Syndrome, Type I Sachin Galarza MD: [address] [place] [phone], Ph. 05/29/2016 Wendi Galarza: [id number] [facility], [place] [address], Ph. 05/26/2016 Complex Regional Pain Syndrome, Type I Joce Wilson MD: [address] [facility], [address] [phone], Ph. 05/15/2016 Drug-induced Constipation; Insomnia Shamika MANDI CazaresP: [id number] [facility], [facility], [place] [address], Ph. 05/02/2016 Follow-up Visit; Complex Regional Pain Syndrome, Type I; Hypertensive Disorder; Type 2 Diabetes Mellitus; Hypercholesterolemia Sachin Galarza MD: [id number] [facility] [facility] [address] [id number], [place] [address], Ph. 04/20/2016 Wendi Galarza: [id number] [facility], [address] [address], Ph. 04/06/2016 Wendi Galarza: [id number] [facility], [address] [address], Ph. 03/31/2016 Dyspnea; Decreased Breath Sounds; Electrocardiogram Abnormal Joce Wilson MD: [id number] [facility], [address] [phone], Ph. Social History Smoking Status Never Smoker Vaccine List Vaccine Type influenza, high dose seasonal 12/19/20160.5 mL pneumococcal conjugate PCV 13 10/02/20160.5 mL Tdap 10/02/20160.5 mL Plan of Care Patient Instructions It was good to see you in the office [facility] for your Medicare Annual Wellness Visit. You have been provided some information on healthy nutrition, including a diet rich in fruits and vegetables, minimizing simple carbohydrates, salt, and saturated fats. I want to encourage regular cardiovascular exercise such as walking at least 30 minutes daily, 5 times per week. Please remember to schedule any preventive health measures that we talked about today. You have also been provided education on fall prevention and community- based lifestyle interventions to help reduce health risks and promote healthy living in your [employer] folder. Screening Recommendations 1. Vaccines Pneumococcal: discussed today and information sent with patient in their [employer] health folder Influenza: discussed today and information sent with patient in their [employer] health folder Shingles: discussed today and information sent with patient in their [employer] health folder Tetanus: discussed today and information sent with patient in their [employer] health folder 2. Prostate Screening: discussed today a nd information sent with patient in their [employer] health folder 3. Colorectal cancer Screening Colonoscopy: discussed today and information sent with patient in their [employer] health folder Fecal Occult Blood: discussed today and information sent with patient in their [employer] health folder 4. Bone Mass Measurement: discussed toda y 5. Eye Exam Screening: discussed today 6. Cholesterol Screening: discussed toda y 7. Diabetes Screening: discussed today 05/03/2016- Patient was seen by Dr. Azul silverio prior to TCM call, will follow up with patient on 05/16/2016. Reminders Provider Appointments None recorded. Lab None recorded. Referral None recorded. Procedures None recorded. Surgeries None recorded. Imaging None recorded. Vitals 06/12/2017 02:45PM Est Patient Height Weight BMI Blood Pressure 5 ft 7 in 192.4 lbs 30.1 kg/m2 136/72 mm[Hg] 05/30/2017 09:15AM Ultrasound Height Weight BMI Blood Pressure 5 ft 7 in 192.2 lbs 30.1 kg/m2 122/77 mm[Hg] 05/25/2017 12:30PM Est Patient Height Weight BMI Blood Pressure 5 ft 7 in 193.6 lbs 30.3 kg/m2 128/75 mm[Hg] 04/24/2017 02:30PM Est Patient Height Weight BMI Blood Pressure 5 ft 7 in 192.6 lbs 30.2 kg/m2 (1) 147/90 mm[H g] (2) 142/87 mm[Hg] 04/06/2017 01:45PM Est Patient Height Weight BMI Blood Pressure 5 ft 7 in 194 lbs 30.4 kg/m2 (1) 152/85 mm[H g] (2) 154/82 mm[Hg] 03/20/2017 09:00AM Est Patient Height Weight BMI Blood Pressure 5 ft 7 in 190.6 lbs 29.9 kg/m2 125/76 mm[Hg] 03/01/2017 02:00PM Est Patient Height Weight BMI Blood Pressure 5 ft 7 in 192.4 lbs 30.1 kg/m2 153/72 mm[Hg] 01/31/2017 03:45PM Est Patient Height Weight BMI Blood Pressure 5 ft 7 in 187 lbs 29.3 kg/m2 147/73 mm[Hg] 01/15/2017 01:30PM Est Patient Height Weight BMI Blood Pressure 5 ft 7 in 186.2 lbs 29.2 kg/m2 (1) 146/81 mm[H g] (2) 152/84 mm[Hg] 12/19/2016 02:45PM Est Patient Height Weight BMI Blood Pressure 5 ft 7 in 188.8 lbs 29.6 kg/m2 170/89 mm[Hg] 11/07/2016 02:30PM Est Patient Height Weight BMI Blood Pressure 5 ft 7 in 180 lbs 28.2 kg/m2 139/74 mm[Hg] 10/31/2016 10:45AM Est Patient Height Weight BMI Blood Pressure 5 ft 7 in 171 lbs 26.8 kg/m2 130/81 mm[Hg] 10/24/2016 03:30PM Work In Same Day Height Weight BMI Blood Pressure 5 ft 7 in 170 lbs 26.6 kg/m2 145/81 mm[Hg] 10/13/2016 10:00AM Est Patient Height Weight BMI Blood Pressure 5 ft 7 in 181.6 lbs 28.4 kg/m2 145/83 mm[Hg] 10/02/2016 02:00PM AW[facility] Height Weight BMI Blood Pressure 5 ft 7 in 175.6 lbs 27.5 kg/m2 134/74 mm[Hg] 09/18/2016 11:30AM Work In Same Day Height Weight BMI Blood Pressure 5 ft 7 in 178.4 lbs 27.9 kg/m2 144/85 mm[Hg] 09/06/2016 09:45AM Est Patient Height Weight BMI Blood Pressure 5 ft 7 in 171 lbs 26.8 kg/m2 136/82 mm[Hg] 08/28/2016 01:15PM Est Patient Height Weight BMI Blood Pressure 5 ft 7 in 169.2 lbs 26.5 kg/m2 163/90 mm[Hg] 08/24/2016 01:15PM Est Patient Height Weight BMI Blood Pressure 5 ft 7 in 171.6 lbs 26.9 kg/m2 142/88 mm[Hg] 08/17/2016 11:00AM Est Patient Height Weight BMI Blood Pressure 5 ft 7 in 170.8 lbs 26.8 kg/m2 141/82 mm[Hg] 08/15/2016 02:30PM Est Patient Height Weight BMI Blood Pressure 5 ft 7 in 174 lbs 27.3 kg/m2 128/76 mm[Hg] 08/08/2016 02:15PM Est Patient Height Weight BMI Blood Pressure 5 ft 7 in 176.8 lbs 27.7 kg/m2 149/76 mm[Hg] 08/02/2016 02:00PM Est Patient Height Weight BMI Blood Pressure 5 ft 7 in 175 lbs 27.4 kg/m2 160/89 mm[Hg] 07/14/2016 01:30PM Est Patient Height Weight BMI Blood Pressure 5 ft 7 in 186.6 lbs 29.2 kg/m2 137/80 mm[Hg] 06/22/2016 10:45AM Est Patient Height Weight BMI Blood Pressure 5 ft 7 in 183.4 lbs 28.7 kg/m2 121/70 mm[Hg] 05/26/2016 02:30PM Est Patient Height Weight BMI Blood Pressure 5 ft 7 in 184.6 lbs 28.9 kg/m2 130/70 mm[Hg] 05/15/2016 02:30PM Est Patient Height Weight BMI Blood Pressure 5 ft 7 in 177.6 lbs 27.8 kg/m2 132/69 mm[Hg] 05/02/2016 02:45PM Est Patient Height Weight BMI Blood Pressure 5 ft 7 in 178.1 lbs 27.9 kg/m2 127/66 mm[Hg] 03/31/2016 02:00PM [employer] CPX Height Weight BMI Blood Pressure 5 ft 7 in 174.6 lbs 27.3 kg/m2 149/88 mm[Hg]
--- OUTSIDE RECORDS SUMMARY | 2019-07-31 07:42 | XMS REPORT ---
Author Author [facility] t Organization [facility] Address [address] [place] [address] Phone Unavailable Care Team Providers Care Ambulette Driver Name Role Phone Valentín Aguero Attphys ChuyTammie han Attphys Payers Payer Name Policy Type Policy Number Effective Date Expiration Date S ource Problems Condition Name Condition Details Condition Category Status Onset Date Resolution Date Last Treatment Date Treating Clinician Comments Source Obstructive sleep apnea syndrome Obstructive Sleep Apnea Syndrom e Problem Active 2017-02-15 00:00:00 [facility] Psoriasis Psoriasis Problem Active 2016-11-07 00:00:00 [facility] 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 Type 2 diabetes mellitus Type 2 Diabetes Mellitus Problem Acti ve 2016-03-31 00:00:00 [facility] Hypercholesterolemia Hypercholesterolemia Problem Active [facility]00[facility] Hypertensive disorder Hypertensive Disorder Problem Active 201 09-16-12 00:00:00 [facility] ractice Allergies, Adverse Reactions, Alerts Allergy Name Allergy Type Status Severity Reaction(s) Onset Date Inacti ve Date Treating Clinician Comments Source No Known Allergies DA Active U 2016-03-31 00:00:00 [facility] Codeine Allergy to substance Active Abdominal pain [facility] Social History Smoking Status Start Date Stop Date Source Never Smoker [facility] ractice Medications Ordered Medication Name Filled Medication Name Start Date Stop Da te Current Medication? Ordering Clinician Indication Dosage Frequency Signature (SIG) Comments Components Source methylprednisolone 4 mg tablets in a dose pack methylp rednisolone 4 mg tablets in a dose pack 2016-03-31 00:00:00 2016-05-02 00:00:00 No methylprednisolone 4 mg tablets in a dose pack [facility] Accu-Chek Paige Plus test strips Accu-Chek Paige Plus test strips No Accu-Chek Paige Plus test strips [facility] Accu-Chek Softclix Lancets Accu-Chek Softclix Lancets No Accu-Chek Softclix Lancets [facility] cyanocobalamin (vitamin B-12) 2,500 mcg tablet Take 1 tablet every day by oral route. cyanocobalamin (vitamin B-12) 2,500 mcg tablet Take 1 tablet every day by oral route. No 1 Q1D cyanocobalam in (vitamin B-12) 2,500 mcg tablet Take 1 tablet every day by oral route. [facility] fluticasone 50 mcg/actuation nasal spray ,suspension USE 2 SPRAY(S) TWICE A DAY BY INTRANASAL ROUTE DIRECTED FOR 30 DAYS fluticasone 50 mcg/actuation nasal spray,suspension USE 2 SPRAY(S) TWICE A DAY BY INTRANASAL ROUTE DIRECTED FOR 30 DAYS No fluticasone 50 m cg/actuation nasal spray,suspension USE 2 SPRAY(S) TWICE A DAY BY INTRANASAL ROUTE DIRECTED FOR 30 DAYS [facility] furosemide 20 mg tablet furosemide 20 mg tablet No furosemide [address] [facility] glipizide ER 5 mg tablet, extended relea se 24 hr take 1 tablet once a day with breakfast glipizide ER 5 mg tablet, extended relea se 24 hr take 1 tablet once a day with breakfast No glipi zide ER 5 mg tablet, extended release 24 hr take 1 tablet once a day with breakfast [facility] ketoconazole 2 % topical cream APPLY TO THE AFFECTED AREA(S) BY TOPICAL ROUTE ONCE DAILY ketoconazole 2 % topical cream APPLY TO THE AFFECTED AREA(S) BY TOPICAL ROUTE ONCE DAILY No ketoconazole 2 % topical cream APPLY TO THE AFFECTED AREA(S) BY TOPICAL ROUTE ONCE DAILY [facility] losartan 50 mg-hydrochlorothiazide 12.5 mg tablet Take 1 tablet every day by oral route losartan 50 mg-hydrochlorothiazide 12.5 mg tablet Take 1 tablet every day by oral route No losart an 50 mg-hydrochlorothiazide 12.5 mg tablet Take 1 tablet every day by oral route [facility] Lyrica 100 mg capsule 1 PO in a.m. and 1 PO at noon Ly gio 100 mg capsule 1 PO in a.m. and 1 PO at noon No Lyrica 100 mg capsule 1 PO in a.m. and 1 PO at noon [facility] ice Lyrica 50 mg capsule Take 1 capsule every day by oral route at bedtime. Lyrica 50 mg capsule Take 1 capsule every day by oral route at bedtime. No 1capsule(s) Q1D Lyrica 50 mg capsule Take 1 capsule every day by oral route at bedtime. [facility] metformin 1,000 mg tablet TAKE 1 TAB TWICE A DAY metfo rmin 1,000 mg tablet TAKE 1 TAB TWICE A DAY No metfor min 1,000 mg tablet TAKE 1 TAB TWICE A DAY [facility] ice potassium chloride ER 20 mEq tablet,exte nded release Take 1 tablet every day by oral route for 90 days. potassium chloride ER 20 mEq tablet,exte nded release Take 1 tablet every day by oral route for 90 days. No 1 Q1D potassium chloride ER 20 mEq tablet,extended release Take 1 tablet every day by oral route for 90 days. [facility] ice pravastatin 20 mg tablet take 1 tablet once a day prav astatin 20 mg tablet take 1 tablet once a day No prav astatin 20 mg tablet take 1 tablet once a day [facility] ice tramadol 50 mg tablet TAKE 1 TABLET(S) E VERY 8 HOURS BY ORAL ROUTE NEEDED FOR 30 DAYS. tramadol 50 mg tablet TAKE 1 TABLET(S) E VERY 8 HOURS BY ORAL ROUTE NEEDED FOR 30 DAYS. No tram adol 50 mg tablet TAKE 1 TABLET(S) EVERY 8 HOURS BY ORAL ROUTE NEEDED FOR 30 DAYS. [facility] triamcinolone acetonide 0.1 % topical cream triamcinol one acetonide 0.1 % topical cream No triamcinolone acetonide 0.1 % topical cream [facility] vitamin E 400 unit capsule Take 1 capsule every day by oral route. vitamin E 400 unit capsule Take 1 capsule every day by oral route. No 1capsule(s) Q1D vitamin E 400 unit capsule Take 1 capsule every day by oral route. [facility] clotrimazole 1 % topical cream APPLY TO THE AFFECTED AND SURROUNDING AREAS OF SKIN BY TOPICAL ROUTE 2 TIMES PER DAY IN THE MORNING AND EVENING clotrimazole 1 % topical cream APPLY TO THE AFFECTED AND SURROUNDING AREAS OF SKIN BY TOPICAL ROUTE 2 TIMES PER DAY IN THE MORNING AND EVENING 2017-04-24 00:00:00 N o clotrimazole 1 % topical cream APPLY TO THE AFFECTED AND SURROUNDING AREAS OF SKIN BY TOPICAL ROUTE 2 TIMES PER DAY IN THE MORNING AND EVENING [facility] meloxicam 15 mg tablet meloxicam 15 mg tablet 2017-04-24 00:00:00 No meloxicam 15 mg tablet [facility] actice Nasonex 50 mcg/actuation [place] 2 s prays every day by intranasal route for 90 days. Nasonex 50 mcg/actuation [place] 2 s prays every day by intranasal route for 90 days. 2017-04-24 00:00:00 No 2spray(s) Q1D Nasonex 50 mcg/actuation [place] 2 sprays every day by intranasal route for 90 days. [facility] gabapentin 300 mg capsule gabapentin 300 mg capsule 00:00:00 No gabapentin 300 mg capsule [facility] Lyrica 75 mg capsule Take 1 capsule twice a day by ora l route for 7 days. Lyrica 75 mg capsule Take 1 capsule twice a day by oral route for 7 days. 2017-01-18 00:00:00 No 1capsule(s) BID Lyrica 75 mg capsule Take 1 capsule twice a day by oral route for 7 days. [facility] amoxicillin 500 mg capsule amoxicillin 500 mg capsule 2016 00:00:00 No amoxicillin 500 mg capsule [facility] azithromycin 500 mg tablet azithromycin 500 mg tablet 2016 00:00:00 No azithromycin 500 mg tablet [facility] Linzess 145 mcg capsule Take 1 capsule every day by or al route for 13 days. Linzess 145 mcg capsule Take 1 capsule every day by oral route for 13 days. 2017-01-15 00:00:00 No 1capsule(s) Q1D Linz ess 145 mcg capsule Take 1 capsule every day by oral route for 13 days. [facility] Milk of Magnesia 400 mg/5 mL oral suspension take 1 ta blespoons once at bedtime Milk of Magnesia 400 mg/5 mL oral suspension take 1 tablespoons once at bedtime 2017-01-15 00:00:00 No Milk of Magnesia 400 mg/5 mL oral suspension take 1 tablespoons once at bedtime [facility] gabapentin 600 mg tablet gabapentin 600 mg tablet 2016-12-19 00: 00:00 No gabapentin 600 mg tablet Rosemarie tejedae [facility] lisinopril 2.5 mg tablet Take 1 tablet by mouth once a day lisinopril 2.5 mg tablet Take 1 tablet by mouth once a day 2016-12-19 00:00:00 No lisinopril 2.5 mg tablet Take 1 tablet by mouth once a day [facility] ondansetron 8 mg disintegrating tablet ondansetron 8 mg disinteg rating tablet 2016-11-07 00:00:00 No ondansetron 8 mg dis integrating tablet [facility] Accu-Chek Paige Plus Meter Accu-Chek Paige Plus Meter 2016 00:00:00 No Accu-Chek Paige Plus Meter [facility] glipizide 5 mg tablet glipizide 5 mg tablet 2016-10-31 00:00:00 No glipizide 5 mg tablet [facility] ctice megestrol 400 mg/10 mL (40 mg/mL) oral suspension mege strol 400 mg/10 mL (40 mg/mL) oral suspension 2016-10-31 00:00:00 No megestrol 400 mg/10 mL (40 mg/mL) oral suspension [facility] vitamin E (dl, acetate) 400 unit capsule Take 1 capsule every day by oral route. vitamin E (dl, acetate) 400 unit capsule Take 1 capsule every day by oral route. 2016-10-31 00:00:00 No 1capsule(s) Q1D vitamin E (dl, acetate) 400 unit capsule Take 1 capsule every day by oral route. [facility] potassium chloride ER 10 mEq tablet,exte nded release 10 MEQ TAKE ONE TABLET ONCE DAILY potassium chloride ER 10 mEq tablet,exte nded release 10 MEQ TAKE ONE TABLET ONCE DAILY 2016-10-13 00:00:00 No potassium chloride ER 10 mEq tablet,extended release 10 MEQ TAKE ONE TABLET ONCE DAILY [facility] Vitamin D3 1,000 unit capsule Take 1 capsule every day by oral route. Vitamin D3 1,000 unit capsule Take 1 capsule every day by oral route. 2016-10-13 00:00:00 No 1capsule(s) Q1D Vitamin D3 1, 000 unit capsule Take 1 capsule every day by oral route. [facility] potassium chloride ER 10 mEq tablet,extended release(p art/cryst) potassium chloride ER 10 mEq tablet,extended release(part/cryst) 2016-09-16 00:00:00 No potassium chloride ER 10 mEq tablet,exte nded release(part/cryst) [facility] gabapentin 400 mg capsule Take 1 capsule 3 times a day by oral route for 30 days. gabapentin 400 mg capsule Take 1 capsule 3 times a day by oral route for 30 days. 2016-09-18 00:00:00 No 1capsule(s) TID gabapentin 400 mg capsule Take 1 capsule 3 times a day by oral route for 30 days. [facility] famotidine 20 mg tablet famotidine 20 mg tablet 2016-09-06 00:00 :00 No famotidine 20 mg tablet [facility] ferrous sulfate 325 mg (65 mg iron) tabl et Take 1 tablet every day by oral route for 90 days. ferrous sulfate 325 mg (65 mg iron) tabl et Take 1 tablet every day by oral route for 90 days. 2016-09-06 00:00:00 No 1 Q1D ferrous sulfate 325 mg (65 mg iron) tablet Take 1 tablet every day by oral route for 90 days. [facility] Movantik 25 mg tablet Take 1 tablet every day by oral route for 90 days. Movantik 25 mg tablet Take 1 tablet every day by oral route for 90 days. 2016-09-06 00:00:00 No 1 Q1D Movan tik 25 mg tablet Take 1 tablet every day by oral route for 90 days. [facility] nortriptyline 10 mg capsule nortriptyline 10 mg capsule 2016-09-06 00:00:00 No nortriptyline 10 mg capsule [facility] omeprazole 40 mg capsule,delayed release omeprazole 40 mg capsule,delayed release 2016-09-06 00:00:00 No omep razole 40 mg capsule,delayed release [facility] ice Vitamin C 1,000 mg tablet Take 1 tablet every day by o ral route as directed. Vitamin C 1,000 mg tablet Take 1 tablet every day by oral route as directed. 2016-09-06 00:00:00 No 1 Q1D Vitam in C 1,000 mg tablet Take 1 tablet every day by oral route as directed. [facility] acetaminophen 300 mg-codeine 30 mg tablet acetaminophe n 300 mg-codeine 30 mg tablet 2016-08-28 00:00:00 No acet aminophen 300 mg-codeine 30 mg tablet [facility] ice ondansetron HCl 8 mg tablet ondansetron HCl 8 mg tablet 2016-08-28 00:00:00 No ondansetron HCl 8 mg tablet [facility] sulfamethoxazole 800 mg-trimethoprim 160 mg tablet sul famethoxazole 800 mg- trimethoprim 160 mg tablet 2016-08-28 00:00:00 No sulfamethoxazole 800 mg-trimethoprim 160 mg tablet [facility] trazodone 100 mg tablet trazodone 100 mg tablet 2016-08-28 00:00 :00 No trazodone 100 mg tablet [facility] azithromycin 250 mg tablet azithromycin 250 mg tablet 2016 00:00:00 No azithromycin 250 mg tablet [facility] Tessalon Perles 100 mg capsule Take 1 ca psule 3 times a day by oral route as needed for 10 days. Tessalon Perles 100 mg capsule Take 1 ca psule 3 times a day by oral route as needed for 10 days. 2016-08-02 00:00:00 No 1capsule(s) TID Tessalon Perles 100 mg capsule Take 1 ca psule 3 times a day by oral route as needed for 10 days. [facility] ice potassium chloride 10MEQ TAKE ONE TABLET ONCE DAILY p otassium chloride 10MEQ TAKE ONE TABLET ONCE DAILY 2016-05-15 00:00:00 No potassium chloride 10MEQ TAKE ONE TABLE[facility] dilt[facility] 60 mg tablet Take 1 tablet basil ry 6 hours by oral route as directed for 90 days. diltiazem 60 mg tablet Take 1 tablet basil ry 6 hours by oral route as directed for 90 days. 2016-05-02 00:00:00 No 1 Q6H diltiazem 60 mg tablet Take 1 tablet every 6 hours by oral route as directed for 90 days. [facility] enalapril maleate 5 mg tablet Take 1 tab let every day by oral route as directed for 90 days. enalapril maleate 5 mg tablet Take 1 tab let every day by oral route as directed for 90 days. 2016-05-02 00:00:00 No 1 Q1D enalapril maleate 5 mg tablet Take 1 tablet every day by oral route as directed for 90 days. [facility] montelukast 10 mg tablet Take 1 tablet e very day by oral route as directed for 90 days. montelukast 10 mg tablet Take 1 tablet e very day by oral route as directed for 90 days. 2016-05-02 00:00:00 No 1 Q1D montelukast 10 mg tablet Take 1 tablet every day by oral route as directed for 90 days. [facility] ProAir HFA 90 mcg/actuation aerosol inhaler ProAir HFA 90 mcg/actuation aerosol inhaler 2016-05-02 00:00:00 No ProA ir HFA 90 mcg/actuation aerosol [facility] qu[facility] 25 mg tablet quetiapine 25 mg tablet 2016-03-31 00:00 :00 No quetiapine 25 mg tablet [facility] Immunizations Ordered Immunization Name Filled Immunization Name Date Status Comments Source influenza, high dose seasonal influenza, high dose seasonal 2016 16:13:34 Completed [facility] Tdap Tdap 2016-10-02 16:51:00 Completed [facility] pneumococcal conjugate PCV 13 pneumococcal conjugate PCV 13 2016 16:50:00 Completed [facility] Vital Signs Vital Name Observation Time Observation Value Comments Source BP Diastolic 2017-06-12 00:00:00 72 mm[Hg] [facility] Height 2017-06-12 00:00:00 67 [in_i] [facility] BMI (Body Mass Index) 2017-06-12 00:00:00 30.1 kg/m2 [facility] BP Systolic 2017-06-12 00:00:00 136 mm[Hg] [facility] Body Weight 2017-06-12 00:00:00 192.4 [lb_av] [facility] BP Diastolic 2017-05-30 00:00:00 77 mm[Hg] [facility] Height 2017-05-30 00:00:00 67 [in_i] [facility] BMI (Body Mass Index) 2017-05-30 00:00:00 30.1 kg/m2 [facility] BP Systolic 2017-05-30 00:00:00 122 mm[Hg] [facility] Body Weight 2017-05-30 00:00:00 192.2 [lb_av] [facility] BP Diastolic 2017-05-25 00:00:00 75 mm[Hg] [facility] Height 2017-05-25 00:00:00 67 [in_i] [facility] BMI (Body Mass Index) 2017-05-25 00:00:00 30.3 kg/m2 [facility] BP Systolic 2017-05-25 00:00:00 128 mm[Hg] [facility] Body Weight 2017-05-25 00:00:00 193.6 [lb_av] [facility] BP Diastolic 2017-04-24 00:00:00 90 mm[Hg] [facility] Height 2017-04-24 00:00:00 67 [in_i] [facility] BMI (Body Mass Index) 2017-04-24 00:00:00 30.2 kg/m2 [facility] BP Systolic 2017-04-24 00:00:00 147 mm[Hg] [facility] Body Weight 2017-04-24 00:00:00 192.6 [lb_av] [facility] BP Diastolic 2017-04-06 00:00:00 85 mm[Hg] [facility] Height 2017-04-06 00:00:00 67 [in_i] [facility] BMI (Body Mass Index) 2017-04-06 00:00:00 30.4 kg/m2 [facility] BP Systolic 2017-04-06 00:00:00 152 mm[Hg] [facility] Body Weight 2017-04-06 00:00:00 194 [lb_av] [facility] BP Diastolic 2017-03-20 00:00:00 76 mm[Hg] [facility] Height 2017-03-20 00:00:00 67 [in_i] [facility] BMI (Body Mass Index) 2017-03-20 00:00:00 29.9 kg/m2 [facility] BP Systolic 2017-03-20 00:00:00 125 mm[Hg] [facility] Body Weight 2017-03-20 00:00:00 190.6 [lb_av] [facility] BP Diastolic 2017-03-01 00:00:00 72 mm[Hg] [facility] Height 2017-03-01 00:00:00 67 [in_i] [facility] BMI (Body Mass Index) 2017-03-01 00:00:00 30.1 kg/m2 [facility] BP Systolic 2017-03-01 00:00:00 153 mm[Hg] [facility] Body Weight 2017-03-01 00:00:00 192.4 [lb_av] [facility] BP Diastolic 2017-01-31 00:00:00 73 mm[Hg] [facility] Height 2017-01-31 00:00:00 67 [in_i] [facility] BMI (Body Mass Index) 2017-01-31 00:00:00 29.3 kg/m2 [facility] BP Systolic 2017-01-31 00:00:00 147 mm[Hg] [facility] Body Weight 2017-01-31 00:00:00 187 [lb_av] [facility] BP Diastolic 2017-01-15 00:00:00 81 mm[Hg] [facility] Height 2017-01-15 00:00:00 67 [in_i] [facility] BMI (Body Mass Index) 2017-01-15 00:00:00 29.2 kg/m2 [facility] BP Systolic 2017-01-15 00:00:00 146 mm[Hg] [facility] Body Weight 2017-01-15 00:00:00 186.2 [lb_av] [facility] BP Diastolic 2016-12-19 00:00:00 89 mm[Hg] [facility] Height 2016-12-19 00:00:00 67 [in_i] [facility] BMI (Body Mass Index) 2016-12-19 00:00:00 29.6 kg/m2 [facility] BP Systolic 2016-12-19 00:00:00 170 mm[Hg] [facility] Body Weight 2016-12-19 00:00:00 188.8 [lb_av] [facility] BP Diastolic 2016-11-07 00:00:00 74 mm[Hg] [facility] Height 2016-11-07 00:00:00 67 [in_i] [facility] BMI (Body Mass Index) 2016-11-07 00:00:00 28.2 kg/m2 [facility] BP Systolic 2016-11-07 00:00:00 139 mm[Hg] [facility] Body Weight 2016-11-07 00:00:00 180 [lb_av] [facility] BP Diastolic 2016-10-31 00:00:00 81 mm[Hg] [facility] Height 2016-10-31 00:00:00 67 [in_i] [facility] BMI (Body Mass Index) 2016-10-31 00:00:00 26.8 kg/m2 [facility] BP Systolic 2016-10-31 00:00:00 130 mm[Hg] [facility] Body Weight 2016-10-31 00:00:00 171 [lb_av] [facility] BP Diastolic 2016-10-24 00:00:00 81 mm[Hg] [facility] Height 2016-10-24 00:00:00 67 [in_i] [facility] BMI (Body Mass Index) 2016-10-24 00:00:00 26.6 kg/m2 [facility] BP Systolic 2016-10-24 00:00:00 145 mm[Hg] [facility] Body Weight 2016-10-24 00:00:00 170 [lb_av] [facility] BP Diastolic 2016-10-13 00:00:00 83 mm[Hg] [facility] Height 2016-10-13 00:00:00 67 [in_i] [facility] BMI (Body Mass Index) 2016-10-13 00:00:00 28.4 kg/m2 [facility] BP Systolic 2016-10-13 00:00:00 145 mm[Hg] [facility] Body Weight 2016-10-13 00:00:00 181.6 [lb_av] [facility] BP Diastolic 2016-10-02 00:00:00 74 mm[Hg] [facility] Height 2016-10-02 00:00:00 67 [in_i] [facility] BMI (Body Mass Index) 2016-10-02 00:00:00 27.5 kg/m2 [facility] BP Systolic 2016-10-02 00:00:00 134 mm[Hg] [facility] Body Weight 2016-10-02 00:00:00 175.6 [lb_av] [facility] BP Diastolic 2016-09-18 00:00:00 85 mm[Hg] [facility] Height 2016-09-18 00:00:00 67 [in_i] [facility] BMI (Body Mass Index) 2016-09-18 00:00:00 27.9 kg/m2 [facility] BP Systolic 2016-09-18 00:00:00 144 mm[Hg] [facility] Body Weight 2016-09-18 00:00:00 178.4 [lb_av] [facility] BP Diastolic 2016-09-06 00:00:00 82 mm[Hg] [facility] Height 2016-09-06 00:00:00 67 [in_i] [facility] BMI (Body Mass Index) 2016-09-06 00:00:00 26.8 kg/m2 [facility] BP Systolic 2016-09-06 00:00:00 136 mm[Hg] [facility] Body Weight 2016-09-06 00:00:00 171 [lb_av] [facility] BP Diastolic 2016-08-28 00:00:00 90 mm[Hg] [facility] Height 2016-08-28 00:00:00 67 [in_i] [facility] BMI (Body Mass Index) 2016-08-28 00:00:00 26.5 kg/m2 [facility] BP Systolic 2016-08-28 00:00:00 163 mm[Hg] [facility] Body Weight 2016-08-28 00:00:00 169.2 [lb_av] [facility] BP Diastolic 2016-08-24 00:00:00 88 mm[Hg] [facility] Height 2016-08-24 00:00:00 67 [in_i] [facility] BMI (Body Mass Index) 2016-08-24 00:00:00 26.9 kg/m2 [facility] BP Systolic 2016-08-24 00:00:00 142 mm[Hg] [facility] Body Weight 2016-08-24 00:00:00 171.6 [lb_av] [facility] BP Diastolic 2016-08-17 00:00:00 82 mm[Hg] [facility] Height 2016-08-17 00:00:00 67 [in_i] [facility] BMI (Body Mass Index) 2016-08-17 00:00:00 26.8 kg/m2 [facility] BP Systolic 2016-08-17 00:00:00 141 mm[Hg] [facility] Body Weight 2016-08-17 00:00:00 170.8 [lb_av] [facility] BP Diastolic 2016-08-15 00:00:00 76 mm[Hg] [facility] Height 2016-08-15 00:00:00 67 [in_i] [facility] BMI (Body Mass Index) 2016-08-15 00:00:00 27.3 kg/m2 [facility] BP Systolic 2016-08-15 00:00:00 128 mm[Hg] [facility] Body Weight 2016-08-15 00:00:00 174 [lb_av] [facility] BP Diastolic 2016-08-08 00:00:00 76 mm[Hg] [facility] Height 2016-08-08 00:00:00 67 [in_i] [facility] BMI (Body Mass Index) 2016-08-08 00:00:00 27.7 kg/m2 [facility] BP Systolic 2016-08-08 00:00:00 149 mm[Hg] [facility] Body Weight 2016-08-08 00:00:00 176.8 [lb_av] [facility] BP Diastolic 2016-08-02 00:00:00 89 mm[Hg] [facility] Height 2016-08-02 00:00:00 67 [in_i] [facility] BMI (Body Mass Index) 2016-08-02 00:00:00 27.4 kg/m2 [facility] BP Systolic 2016-08-02 00:00:00 160 mm[Hg] [facility] Body Weight 2016-08-02 00:00:00 175 [lb_av] [facility] BP Diastolic 2016-07-14 00:00:00 80 mm[Hg] [facility] Height 2016-07-14 00:00:00 67 [in_i] [facility] BMI (Body Mass Index) 2016-07-14 00:00:00 29.2 kg/m2 [facility] BP Systolic 2016-07-14 00:00:00 137 mm[Hg] [facility] Body Weight 2016-07-14 00:00:00 186.6 [lb_av] [facility] BP Diastolic 2016-06-22 00:00:00 70 mm[Hg] [facility] Height 2016-06-22 00:00:00 67 [in_i] [facility] BMI (Body Mass Index) 2016-06-22 00:00:00 28.7 kg/m2 [facility] BP Systolic 2016-06-22 00:00:00 121 mm[Hg] [facility] Body Weight 2016-06-22 00:00:00 183.4 [lb_av] [facility] BP Diastolic 2016-05-26 00:00:00 70 mm[Hg] [facility] Height 2016-05-26 00:00:00 67 [in_i] [facility] BMI (Body Mass Index) 2016-05-26 00:00:00 28.9 kg/m2 [facility] BP Systolic 2016-05-26 00:00:00 130 mm[Hg] [facility] Body Weight 2016-05-26 00:00:00 184.6 [lb_av] [facility] BP Diastolic 2016-05-15 00:00:00 69 mm[Hg] [facility] Height 2016-05-15 00:00:00 67 [in_i] [facility] BMI (Body Mass Index) 2016-05-15 00:00:00 27.8 kg/m2 [facility] BP Systolic 2016-05-15 00:00:00 132 mm[Hg] [facility] Body Weight 2016-05-15 00:00:00 177.6 [lb_av] [facility] BP Diastolic 2016-05-02 00:00:00 66 mm[Hg] [facility] Height 2016-05-02 00:00:00 67 [in_i] [facility] BMI (Body Mass Index) 2016-05-02 00:00:00 27.9 kg/m2 [facility] BP Systolic 2016-05-02 00:00:00 127 mm[Hg] [facility] Body Weight 2016-05-02 00:00:00 178.1 [lb_av] [facility] BP Diastolic 2016-03-31 00:00:00 88 mm[Hg] [facility] Height 2016-03-31 00:00:00 67 [in_i] [facility] BMI (Body Mass Index) 2016-03-31 00:00:00 27.3 kg/m2 [facility] BP Systolic 2016-03-31 00:00:00 149 mm[Hg] [facility] Body Weight 2016-03-31 00:00:00 174.6 [lb_av] [facility] Procedures Procedure Date / Time Performed Performing Clinician Sour e US, echocardiogram, transthoracic, complete, w/ color flow 2 00:00:00 [facility] US, echocardiogram, transthoracic, complete, w/ color flow 2 00:00:00 [facility] BREATHING CAPACITY TEST 2017-05-25 00:00:00 [facility] US, ABDOMINAL COMPLETE 2016-08-30 00:00:00 [facility] US, ABDOMINAL COMPLETE 2016-08-28 00:00:00 [facility] US, ABDOMINAL COMPLETE 2016-08-24 00:00:00 [facility] electrocardiogram 2016-03-31 00:00:00 [facility] Cholecystectomy 2015-03-19 00:00:00 [facility] Plan of Care Planned Activity Planned Date Details Comments Source Instructions [facility] Instructions [facility] Encounters Start Date/Time End Date/Time Encounter Type Admission Type [facility] Facility Care Department Encounter ID Source 2017-11-14 09:01:00 2017-11-14 23:59:00 Outpatient Ric [facility] [id number] [facility] 2017-06-12 00:00:00 2017-06-12 00:00:00 ZACHERY Duron: [id number] [facility], [address] [address], Ph. [facility] [id number] [facility] 2017-05-30 00:00:00 2017-05-30 00:00:00 Peng Galarza MD: [id number] [facility], [address] [place] [address], Ph. [facility] [id number] [facility] 2017-05-25 00:00:00 2017-05-25 00:00:00 Peng Galarza MD: [id number] [facility], [address], [place] [address], Ph. [facility] [id number] [facility] 2017-04-24 00:00:00 2017-04-24 00:00:00 Peng Galarza MD: [id number] [facility], [address] [place] [address], Ph. [facility] hospital [id number] [facility] 2017-04-06 00:00:00 2017-04-06 00:00:00 Peng Galarza MD: [id number] [facility], [address] [address], Ph. [facility] Critical access hospital [id number] [facility] 2017-03-20 00:00:00 2017-03-20 00:00:00 Peng Galarza MD: [id number] [facility], [address] [address], Ph. [facility] [id number] [facility] 2017-03-01 00:00:00 2017-03-01 00:00:00 Peng Galarza MD: [id number] [facility], [address] [address], Ph. [facility] Critical access hospital [id number] [facility] 2017-01-31 00:00:00 2017-01-31 00:00:00 Peng Galarza MD: [id number] [facility], [address] [place] [address], Ph. P [facility] Critical access hospital [id number] [facility] 2017-01-15 00:00:00 2017-01-15 00:00:00 MANDI KendrickP: [id number] [facility], [address] [place] [address], Ph. [facility] Critical access hospital [id number] [facility] 2016-12-19 00:00:00 2016-12-19 00:00:00 Peng Galarza MD: [id number], [address], [place] [address], Ph. [facility] [place] [facility] [id number] [facility] 2016-11-07 00:00:00 2016-11-07 00:00:00 Peng Galarza MD: [id number], [address], [place] [address], Ph. [facility] [place] [facility] [id number] [facility] 2016-10-31 00:00:00 2016-10-31 00:00:00 Peng Galarza MD: [address], [address], [place] [address], Ph. [facility] [place] [facility] [id number] [facility] 2016-10-24 00:00:00 2016-10-24 00:00:00 Peng Galarza MD: [id number], [address], [place] [address], Ph. [facility] [place] [facility] - [facility] [id number] [facility] 2016-10-13 00:00:00 2016-10-13 00:00:00 MANDI KendrickP: [address], [address] [place] [address], Ph. [facility] [place] [facility] [id number] [facility] 2016-10-02 00:00:00 2016-10-02 00:00:00 Peng Galarza MD: [id number], [place] [address], Ph. [facility] [place] [facility] [id number] [facility] 2016-09-18 00:00:00 2016-09-18 00:00:00 MANDI KendrickP: [address], [address], [place] [address], Ph. [facility] [place] [facility] [id number] [facility] 2016-09-06 00:00:00 2016-09-06 00:00:00 Peng Galarza MD: [id number] [facility], [address], [place] [address], Ph. [facility] [place] [facility] [id number] [facility] 2016-08-30 00:00:00 2016-08-30 00:00:00 Peng Galarza MD: [id number] [facility], [address], [place] [address], Ph. [facility] [place] [facility] [id number] [facility] 2016-08-28 00:00:00 2016-08-28 00:00:00 Shamika MANDI CazaresP: [address] [facility], [address], [place] [address], Ph. [facility] [place] - [facility] [id number] [facility] 2016-08-24 00:00:00 2016-08-24 00:00:00 Shamika Sage, BRUSH STAINER: [address] [facility], [address], [place] [address], Ph. [facility]FP [place] - [facility] - [facility] [id number] [facility] 2016-08-17 00:00:00 2016-08-17 00:00:00 MANDI KendrickP: [address] [facility], [address], [place] [address], Ph. [facility] [place] [facility] [id number] [facility] 2016-08-15 00:00:00 2016-08-15 00:00:00 ZACHERY German : [id number] [facility], [address], [place] [address], Ph. [facility] [place] [facility] [id number] [facility] 2016-08-08 00:00:00 2016-08-08 00:00:00 Peng Galarza MD: [id number] [facility], [address], [place] [address], [facility]. [facility] [id number] [facility] 2016-08-02 00:00:00 2016-08-02 00:00:00 Peng Galarza MD: 73307 [facility], [address], [place] [address], Ph. [facility] [id number] [facility] 2016-07-14 00:00:00 2016-07-14 00:00:00 Joce millan MD: [address] [facility], [address] [address], Ph. [facility] [id number] [facility] 2016-07-10 12:19:00 2016-07-10 23:59:00 Outpatient Sunday, Rosi Cho OIB MHOIB [id number] [facility] patient Imaging [facility] 2016-06-22 00:00:00 2016-06-22 00:00:00 Peng Galarza MD: [address]89 [facility], [address], [place] [address], Ph. [facility] [id number] [facility] 2016-05-29 00:00:00 2016-05-29 00:00:00 Wendi Galarza: [address], [address], [place] [address], Ph. [facility] [id number] [facility] 2016-05-26 00:00:00 2016-05-26 00:00:00 Joce millan MD: [address]51 [facility], [address] [address], Ph. [facility] [id number] [facility] 2016-05-15 00:00:00 2016-05-15 00:00:00 Shamika Cazares, BRUSH STAINER: [address] [facility], [address] [address], Ph. [facility] [id number] [facility] 2016-05-02 00:00:00 2016-05-02 00:00:00 Peng Galarza MD: [id number] [facility], [facility] [address] [address], Ph. [facility] [id number] [facility] 2016-04-20 00:00:00 2016-04-20 00:00:00 Wendi Geovanni: [address] [facility], [address], [place] [address], Ph. [facility] [id number] [facility] 2016-04-06 00:00:00 2016-04-06 00:00:00 Wendi Galarza: [address] [facility], [address], [place] [address], Ph. [facility] [id number] [facility] 2016-03-31 00:00:00 2016-03-31 00:00:00 Joce millan MD: 95384 [facility], [address] [address], Ph. [facility] [id number] [facility] Results Test Description Test Time Test Comments Results Result Comments Source Hemoglobin A1c/Hemoglobin.total in Blood 2017-01-16 07:13:00 Test Item hemoglobin A1C (test code = hemoglobin A1C) 7.7 % 4.8-5.6 H estim. avg glu (EAG) (test code = estim. avg glu (EAG)) 174 mg/dL [facility] W Auto Differential panel - [id number] 07:13:00 * Test Item Value Reference Range Interpretation Comments WBC (test code = WBC) 8.3 x10e3/uL 3.4-10.8 RBC (test code = RBC) 4.20 x10e6/uL 4.14-5.80 hemoglobin (test code = hemoglobin) 11.7 g/dL 12.6-17.7 L hematocrit (test code = hematocrit) 35.1 % 37.5-51.0 L MCV (test code = MCV) 84 fL 79-97 MCH (test code = MCH) 27.9 pg 26.6-33.0 MCHC (test code = MCHC) 33.3 g/dL 31.5-35.7 RDW (test code = RDW) 13.4 % 12.3-15.4 platelets (test code = platelets) 351 x10e3/uL 150-379 neutrophils (test code = neutrophils) 57 % not estab. lymphs (test code = lymphs) 24 % not estab. monocytes (test code = monocytes) 8 % not estab. eos (test code = eos) 10 % not estab. basos (test code = basos) 1 % not estab. immature cells (test code = immature cells) comment neutrophils (absolute) (test code = neutrophils (absolute)) 4.8 x10e3/uL 1.4-7.0 lymphs (absolute) (test code = lymphs (absolute)) 2.0 x10e3/uL 0.7- 3.1 monocytes(absolute) (test code = monocytes(absolute)) 0.7 x10e3/uL 0.1-0.9 eos (absolute) (test code = eos (absolute)) 0.8 x10e3/uL 0.0-0.4 H baso (absolute) (test code = baso (absolute)) 0.1 x10e3/uL 0.0-0.2 immature granulocytes (test code = immature granulocytes) 0 % not estab. immature grans (abs) (test code = immature grans (abs)) 0.0 x10e3/u L 0.0-0.1 hematology comments: (test code = hematology comments:) comment [facility] 1996 panel - Serum or [id number] 07:13:00* Test Item Value Reference Range Interpretation Comments cholesterol, total (test code = cholesterol, total) 148 mg/dL 10 0-199 triglycerides (test code = triglycerides) 182 mg/dL 0-149 H HDL cholesterol (test code = HDL cholesterol) 49 mg/dL >39 VLDL cholesterol margaret (test code = VLDL cholesterol margaret) 36 mg/dL 5-40 LDL cholesterol calc (test code = LDL cholesterol calc) 63 mg/dL 0-99 [facility] PracticeComprehensive metabolic 2000 panel - Serum or Plasma 2017-01-16 07:13:00* Test Item Value Reference Range Interpretation Comments glucose, serum (test code = glucose, serum) 165 mg/dL 65-99 H BUN (test code = BUN) 26 mg/dL 8-27 creatinine, serum (test code = creatinine, serum) 1.12 mg/dL 0.76 -1.27 eGFR if nonafricn AM (test code = eGFR if nonafricn AM) 64 mL/mi n/1.73 >59 eGFR if africn AM (test code = eGFR if africn AM) 74 mL/min/1.73 >59 BUN/creatinine ratio (test code = BUN/creatinine ratio) 23 10-24 sodium, serum (test code = sodium, serum) 136 mmol/L 134-144 potassium, serum (test code = potassium, serum) 5.4 mmol/L 3.5-5. 2 H chloride, serum (test code = chloride, serum) 94 mmol/L 96-106 L carbon dioxide, total (test code = carbon dioxide, total) 26 mmol/L 18-29 calcium, serum (test code = calcium, serum) 9.5 mg/dL 8.6-10.2 protein, total, serum (test code = protein, total, serum) 7.0 g/dL 6.0-8.5 albumin, serum (test code = albumin, serum) 4.7 g/dL 3.5-4.8 globulin, total (test code = globulin, total) 2.3 g/dL 1.5-4.5 A/G ratio (test code = A/G ratio) 2.0 1.2-2.2 bilirubin, total (test code = bilirubin, total) <0.2 0.0-1. 2 alkaline phosphatase, S (test code = alkaline phosphatase, S) 97 IU /L 39-117 AST (SGOT) (test code = AST (SGOT)) 14 IU/L 0-40 ALT (SGPT) (test code = ALT (SGPT)) 16 IU/L 0-44 [facility] Center[facility]emoglobin.gastrointestinal [Presence] in [id number] 17:06:00* Test Item Value Reference Range Interpretation Comments fecal globin (medicare) by credit consultant ry (test code = fecal globin (medicare) by immunochemistry) not detected [facility] CenterHelicobacter pylori [Presence] in Stomach by urea breath [id number] 12:12:00* Test Item Value Reference Range Interpretation Comments H. pylori breath test (test code = H. pylori breath test) negative negative [facility] CenterCom[facility] metabolic 2000 panel - Serum or Plasma 2016-08-03 10:14:00* Test Item Value Reference Range Interpretation Comments glucose, serum (test code = glucose, serum) 238 mg/dL 65-99 H BUN (test code = BUN) 27 mg/dL 8-27 creatinine, serum (test code = creatinine, serum) 1.29 mg/dL 0.76 -1.27 H eGFR if nonafricn AM (test code = eGFR if nonafricn AM) 54 mL/mi n/1.73 >59 L eGFR if africn AM (test code = eGFR if africn AM) 62 mL/min/1.73 >59 BUN/creatinine ratio (test code = BUN/creatinine ratio) 21 10-24 sodium, serum (test code = sodium, serum) 137 mmol/L 134-144 potassium, serum (test code = potassium, serum) 5.0 mmol/L 3.5-5. 2 chloride, serum (test code = chloride, serum) 96 mmol/L 96-106 carbon dioxide, total (test code = carbon dioxide, total) 22 mmol/L 18-29 calcium, serum (test code = calcium, serum) 9.5 mg/dL 8.6-10.2 protein, total, serum (test code = protein, total, serum) 6.9 g/dL 6.0-8.5 albumin, serum (test code = albumin, serum) 4.6 g/dL 3.5-4.8 globulin, total (test code = globulin, total) 2.3 g/dL 1.5-4.5 A/G ratio (test code = A/G ratio) 2.0 1.2-2.2 bilirubin, total (test code = bilirubin, total) 0.2 mg/dL 0.0-1. 2 alkaline phosphatase, S (test code = alkaline phosphatase, S) 99 IU /L 39-117 AST (SGOT) (test code = AST (SGOT)) 11 IU/L 0-40 ALT (SGPT) (test code = ALT (SGPT)) 13 IU/L 0-44 [facility] CenterThyrotropin [Units/volume] in Serum or [id number] 10:14:00* Test Item Value Reference Range Interpretation Comments TSH (test code = TSH) 1.400 uIU/mL 0.450-4.500 [facility] Center[facility] 1996 panel - Serum or [id number] 10:14:00* Test Item Value Reference Range Interpretation Comments cholesterol, total (test code = cholesterol, total) 138 mg/dL 10 0-199 triglycerides (test code = triglycerides) 179 mg/dL 0-149 H HDL cholesterol (test code = HDL cholesterol) 43 mg/dL >39 VLDL cholesterol margaret (test code = VLDL cholesterol margaret) 36 mg/dL 5-40 LDL cholesterol calc (test code = LDL cholesterol calc) 59 mg/dL 0-99 [facility] CenterHemoglobin A1c/Hemoglobin.total in [id number] 10:14:00* Test Item Value Reference Range Interpretation Comments hemoglobin A1C (test code = hemoglobin A1C) 6.8 % 4.8-5.6 H estim. avg glu (EAG) (test code = estim. avg glu (EAG)) 148 mg/dL [facility] CenterThyroxine (T4) [Mass/volume] in Serum or [id number] 10:14:00* Test Item Value Reference Range Interpretation Comments thyroxine (T4) (test code = thyroxine (T4)) 7.2 ug/dL 4.5-12.0 [facility] CenterPrealbumin [Mass/volume] in Serum or [id number] 10:14:00* Test Item Value Reference Range Interpretation Comments prealbumin (test code = prealbumin) 29 mg/dL 9-32 [facility] CenterCB W Auto Differential panel - [id number] 10:14:00 * Test Item Value Reference Range Interpretation Comments WBC (test code = WBC) 7.1 x10e3/uL 3.4-10.8 RBC (test code = RBC) 4.32 x10e6/uL 4.14-5.80 hemoglobin (test code = hemoglobin) 12.2 g/dL 12.6-17.7 L hematocrit (test code = hematocrit) 36.6 % 37.5-51.0 L MCV (test code = MCV) 85 fL 79-97 MCH (test code = MCH) 28.2 pg 26.6-33.0 MCHC (test code = MCHC) 33.3 g/dL 31.5-35.7 RDW (test code = RDW) 14.0 % 12.3-15.4 platelets (test code = platelets) 297 x10e3/uL 150-379 neutrophils (test code = neutrophils) 68 % lymphs (test code = lymphs) 20 % monocytes (test code = monocytes) 11 % eos (test code = eos) 1 % basos (test code = basos) 0 % immature cells (test code = immature cells) comment neutrophils (absolute) (test code = neutrophils (absolute)) 4.8 x10e3/uL 1.4-7.0 lymphs (absolute) (test code = lymphs (absolute)) 1.4 x10e3/uL 0.7- 3.1 monocytes(absolute) (test code = monocytes(absolute)) 0.8 x10e3/uL 0.1-0.9 eos (absolute) (test code = eos (absolute)) 0.1 x10e3/uL 0.0-0.4 baso (absolute) (test code = baso (absolute)) 0.0 x10e3/uL 0.0-0.2 immature granulocytes (test code = immature granulocytes) 0 % immature grans (abs) (test code = immature grans (abs)) 0.0 x10e3/u L 0.0-0.1 hematology comments: (test code = hematology comments:) comment [facility] PracticeGlucose [Mass/volume] in Capillary blood by Glucometer 2016-04-05 16:04:00* Test Item Value Reference Range Interpretation Comments glubed (test code = glubed) 177 mg/dL 74-106 H performing lab: (test code = performing lab:) [facility] PracticeGlucose [Mass/volume] in Capillary blood by Glucometer 2016-04-05 12:03:00* Test Item Value Reference Range Interpretation Comments glubed (test code = glubed) 347 mg/dL 74-106 H performing lab: (test code = performing lab:) [facility] CenterGlucose [Mass/volume] in Capillary blood by Glucometer 2016-04-05 08:06:00* Test Item Value Reference Range Interpretation Comments glubed (test code = glubed) 192 mg/dL 74-106 H performing lab: (test code = performing lab:) [facility] CenterCBC W Auto Differential panel - [id number] 04:16:00 * Test Item Value Reference Range Interpretation Comments white blood cell (test code = white blood cell) 6.3 K/mm3 4.5-12 .5 red blood cell (test code = red blood cell) 3.65 mill/mm3 4.0-5.8 L hemoglobin (test code = hemoglobin) 10.4 gram/dL 13.0-17.5 L hematocrit (test code = hematocrit) 31.7 % 42.0-52.0 L mean cell volume (test code = mean cell volume) 86.9 fL 80.4-9 8 mean cell HGB (test code = mean cell HGB) 28.5 pg 27.0-33.0 mean cell HGB concetration (test code = mean cell HGB concet ration) 32.8 g/dL 33.0-36.0 L red cell distribution width (test code = red cell distributi on width) 15.8 % 11.6-16.2 platelet count (test code = platelet count) 162 K/mm3 150-450 mean platelet volume (test code = mean platelet volume) 8.4 fL 6.7-10.0 neutrophil % (test code = neutrophil %) 78.0 % 39.0-69.0 H lymphocyte % (test code = lymphocyte %) 12.4 % 23.0-38.0 L monocyte % (test code = monocyte %) 7.0 % 3.0-8.0 eosinophil % (test code = eosinophil %) 2.3 % 0.0-5.0 basophil % (test code = basophil %) 0.3 % 0.0-1.0 neutrophil # (test code = neutrophil #) 4.90 K/mm3 1.8-7.7 lymphocyte # (test code = lymphocyte #) 0.8 K/mm3 1.0-5.0 L monocyte # (test code = monocyte #) 0.40 K/mm3 0-0.8 eosinophil # (test code = eosinophil #) 0.1 K/mm3 0.0-0.5 basophil # (test code = basophil #) 0.0 K/mm3 0.0-0.2 performing lab: (test code = performing lab:) [facility] CenterBasic metabolic panel - [id number] 04:16:00* Test Item Value Reference Range Interpretation Comments sodium (test code = sodium) 141 mmol/L 135-148 potassium (test code = potassium) 4.3 mmol/L 3.5-5.1 chloride (test code = chloride) 106 mmol/L 101-109 carbon dioxide (test code = carbon dioxide) 29.9 mmol/L 21-32 anion gap (test code = anion gap) 5 mmol/L 10-20 L glucose (test code = glucose) 206 mg/dL 74-106 H blood urea nitrogen (test code = blood urea nitrogen) 16 mg/dL 3-21 glomerular filtration rate (test code = glomerular filtration rate) > 60 >=60 creatinine (test code = creatinine) 0.99 mg/dL 0.55-1.3 calcium (test code = calcium) 8.1 mg/dL 8.4-10.2 L performing lab: (test code = performing lab:) [facility] CenterGlucose [Mass/volume] in Capillary blood by Glucometer 2016-04-04 20:30:00* Test Item Value Reference Range Interpretation Comments glubed (test code = glubed) 125 mg/dL 74-106 H performing lab: (test code = performing lab:) [facility] CenterGlucose [Mass/volume] in Capillary blood by Glucometer 2016-04-04 15:44:00* Test Item Value Reference Range Interpretation Comments glubed (test code = glubed) 226 mg/dL 74-106 H performing lab: (test code = performing lab:) [facility] CenterGlucose [Mass/volume] in Capillary blood by Glucometer 2016-04-04 11:16:00* Test Item Value Reference Range Interpretation Comments glubed (test code = glubed) 238 mg/dL 74-106 H performing lab: (test code = performing lab:) [facility] CenterGlucose [Mass/volume] in Capillary blood by Glucometer 2016-04-04 07:47:00* Test Item Value Reference Range Interpretation Comments glubed (test code = glubed) 103 mg/dL 74-106 performing lab: (test code = performing lab:) [facility] CenterGlucose [Mass/volume] in Capillary blood by Glucometer 2016-04-03 20:44:00* Test Item Value Reference Range Interpretation Comments glubed (test code = glubed) 115 mg/dL 74-106 H performing lab: (test code = performing lab:) [facility] CenterGlucose [Mass/volume] in Capillary blood by Glucometer 2016-04-03 16:00:00* Test Item Value Reference Range Interpretation Comments glubed (test code = glubed) 216 mg/dL 74-106 H performing lab: (test code = performing lab:) [facility] PracticeGlucose [Mass/volume] in Capillary blood by Glucometer 2016-04-03 12:08:00* Test Item Value Reference Range Interpretation Comments glubed (test code = glubed) 413 mg/dL 74-106 H performing lab: (test code = performing lab:) [facility] CenterGlucose [Mass/volume] in Capillary blood by Glucometer 2016-04-03 08:06:00* Test Item Value Reference Range Interpretation Comments glubed (test code = glubed) 86 mg/dL 74-106 performing lab: (test code = performing lab:) [facility] CenterCB W Auto Differential panel - [id number] 04:48:00 * Test Item Value Reference Range Interpretation Comments white blood cell (test code = white blood cell) 9.3 K/mm3 4.5-12 .5 red blood cell (test code = red blood cell) 3.60 mill/mm3 4.0-5.8 L hemoglobin (test code = hemoglobin) 10.3 gram/dL 13.0-17.5 L hematocrit (test code = hematocrit) 31.3 % 42.0-52.0 L mean cell volume (test code = mean cell volume) 86.9 fL 80.4-9 8 mean cell HGB (test code = mean cell HGB) 28.6 pg 27.0-33.0 mean cell HGB concetration (test code = mean cell HGB concet ration) 32.9 g/dL 33.0-36.0 L red cell distribution width (test code = red cell distributi on width) 15.2 % 11.6-16.2 platelet count (test code = platelet count) 192 K/mm3 150-450 mean platelet volume (test code = mean platelet volume) 8.6 fL 6.7-10.0 neutrophil % (test code = neutrophil %) 79.2 % 39.0-69.0 H lymphocyte % (test code = lymphocyte %) 9.4 % 23.0-38.0 L monocyte % (test code = monocyte %) 8.8 % 3.0-8.0 H eosinophil % (test code = eosinophil %) 2.2 % 0.0-5.0 basophil % (test code = basophil %) 0.4 % 0.0-1.0 neutrophil # (test code = neutrophil #) 7.30 K/mm3 1.8-7.7 lymphocyte # (test code = lymphocyte #) 0.9 K/mm3 1.0-5.0 L monocyte # (test code = monocyte #) 0.80 K/mm3 0-0.8 eosinophil # (test code = eosinophil #) 0.2 K/mm3 0.0-0.5 basophil # (test code = basophil #) 0.0 K/mm3 0.0-0.2 performing lab: (test code = performing lab:) [facility] CenterBasic metabolic panel - [id number] 04:48:00* Test Item Value Reference Range Interpretation Comments sodium (test code = sodium) 141 mmol/L 135-148 potassium (test code = potassium) 4.1 mmol/L 3.5-5.1 chloride (test code = chloride) 106 mmol/L 101-109 carbon dioxide (test code = carbon dioxide) 26.2 mmol/L 21-32 anion gap (test code = anion gap) 9 mmol/L 10-20 L glucose (test code = glucose) 106 mg/dL 74-106 blood urea nitrogen (test code = blood urea nitrogen) 25 mg/dL 3-21 H glomerular filtration rate (test code = glomerular filtratio n rate) 60 mL/min >=60 creatinine (test code = creatinine) 1.19 mg/dL 0.55-1.3 calcium (test code = calcium) 7.7 mg/dL 8.4-10.2 L performing lab: (test code = performing lab:) [facility] CenterPhosphate [Moles/volume] in [id number] 04:48:00* Test Item Value Reference Range Interpretation Comments phosphorus (test code = phosphorus) 3.9 mg/dL 2.6-4.7 performing lab: (test code = performing lab:) [facility] CenterMagnesium [Moles/volume] in Serum or [id number] 04:48:00* Test Item Value Reference Range Interpretation Comments magnesium (test code = magnesium) 2.0 mg/dL 1.6-2.3 performing lab: (test code = performing lab:) [facility] CenterGlucose [Mass/volume] in Capillary blood by Glucometer 2016-04-02 20:29:00* Test Item Value Reference Range Interpretation Comments glubed (test code = glubed) 304 mg/dL 74-106 H performing lab: (test code = performing lab:) [facility] CenterGlucose [Mass/volume] in Capillary blood by Glucometer 2016-04-02 16:04:00* Test Item Value Reference Range Interpretation Comments glubed (test code = glubed) 183 mg/dL 74-106 H performing lab: (test code = performing lab:) [facility] CenterGlucose [Mass/volume] in Capillary blood by Glucometer 2016-04-02 11:16:00* Test Item Value Reference Range Interpretation Comments glubed (test code = glubed) 301 mg/dL 74-106 H performing lab: (test code = performing lab:) [facility] CenterGlucose [Mass/volume] in Capillary blood by Glucometer 2016-04-02 09:07:00* Test Item Value Reference Range Interpretation Comments glubed (test code = glubed) 222 mg/dL 74-106 H performing lab: (test code = performing lab:) [facility] CenterHemoglobin A1c/Hemoglobin.total in [id number] 03:52:00* Test Item Value Reference Range Interpretation Comments glycosylated hemoglobin (ha1c) (test code = glycosylat ed hemoglobin (ha1c)) 8.1 % 4.5-6.2 H estimated average glucose (test code = estimated average glucose) 1 86 mg/dL performing lab: (test code = performing lab:) [facility] CenterInfluenza virus A Ag [Presence] in [id number] 21:27:00* Test Item Value Reference Range Interpretation Comments influenza A Ag (test code = influenza A Ag) see below performing lab: (test code = performing lab:) [facility]Presence] in Unspecified specimen 2016-04-01 21:27:00* Test Item Value Reference Range Interpretation Comments influenza B Ag (test code = influenza B Ag) see below performing lab: (test code = performing lab:) [facility] CenterGlucose [Mass/volume] in Capillary blood by Glucometer 2016-04-01 20:19:00* Test Item Value Reference Range Interpretation Comments glubed (test code = glubed) 183 mg/dL 74-106 H performing lab: (test code = performing lab:) [facility] CenterGlucose [Mass/volume] in Capillary blood by Glucometer 2016-04-01 17:19:00* Test Item Value Reference Range Interpretation Comments glubed (test code = glubed) 212 mg/dL 74-106 H performing lab: (test code = performing lab:) [facility] CenterCB W Auto Differential panel - [id number] 04:39:00 * Test Item Value Reference Range Interpretation Comments white blood cell (test code = white blood cell) 11.4 K/mm3 4.5-12 .5 red blood cell (test code = red blood cell) 4.23 mill/mm3 4.0-5.8 hemoglobin (test code = hemoglobin) 11.7 gram/dL 13.0-17.5 L hematocrit (test code = hematocrit) 36.8 % 42.0-52.0 L mean cell volume (test code = mean cell volume) 86.9 fL 80.4-9 8 mean cell HGB (test code = mean cell HGB) 27.6 pg 27.0-33.0 mean cell HGB concetration (test code = mean cell HGB concet ration) 31.7 g/dL 33.0-36.0 L red cell distribution width (test code = red cell distributi on width) 14.8 % 11.6-16.2 platelet count (test code = platelet count) 233 K/mm3 150-450 mean platelet volume (test code = mean platelet volume) 8.5 fL 6.7-10.0 neutrophil % (test code = neutrophil %) 79.6 % 39.0-69.0 H lymphocyte % (test code = lymphocyte %) 10.5 % 23.0-38.0 L monocyte % (test code = monocyte %) 7.6 % 3.0-8.0 eosinophil % (test code = eosinophil %) 1.6 % 0.0-5.0 basophil % (test code = basophil %) 0.7 % 0.0-1.0 neutrophil # (test code = neutrophil #) 9.10 K/mm3 1.8-7.7 H lymphocyte # (test code = lymphocyte #) 1.2 K/mm3 1.0-5.0 monocyte # (test code = monocyte #) 0.90 K/mm3 0-0.8 H eosinophil # (test code = eosinophil #) 0.2 K/mm3 0.0-0.5 basophil # (test code = basophil #) 0.1 K/mm3 0.0-0.2 manual diff required (test code = manual diff required) no performing lab: (test code = performing lab:) [facility] CenterBasic metabolic panel - [id number] 04:39:00* Test Item Value Reference Range Interpretation Comments sodium (test code = sodium) 136 mmol/L 135-148 potassium (test code = potassium) 4.2 mmol/L 3.5-5.1 chloride (test code = chloride) 99 mmol/L 101-109 L carbon dioxide (test code = carbon dioxide) 31.2 mmol/L 21-32 anion gap (test code = anion gap) 6 mmol/L 10-20 L glucose (test code = glucose) 155 mg/dL 74-106 H blood urea nitrogen (test code = blood urea nitrogen) 25 mg/dL 3-21 H glomerular filtration rate (test code = glomerular filtration rate) > 60 >=60 creatinine (test code = creatinine) 0.93 mg/dL 0.55-1.3 calcium (test code = calcium) 8.1 mg/dL 8.4-10.2 L performing lab: (test code = performing lab:) [facility] CenterTroponin I.cardiac [Mass/volume] in Serum or Plasma 2016-04-01 01:17:00* Test Item Value Reference Range Interpretation Comments troponin-I (test code = troponin-I) 0.06 NG/mL 0.00-0.056 H performing lab: (test code = performing lab:) [facility] CenterGlucose [Mass/volume] in Capillary blood by Glucometer 2016-03-31 22:56:00* Test Item Value Reference Range Interpretation Comments glubed (test code = glubed) 193 mg/dL 74-106 H performing lab: (test code = performing lab:) [facility] CenterTroponin I.cardiac [Mass/volume] in Serum or Plasma 2016-03-31 21:59:00* Test Item Value Reference Range Interpretation Comments troponin-I (test code = troponin-I) 0.07 NG/mL 0.00-0.056 H performing lab: (test code = performing lab:) [facility] CenterBacteria identified in Blood by [id number] 19:45:00* Test Item Value Reference Range Interpretation Comments blood culture (test code = blood culture) see below performing lab: (test code = performing lab:) [facility] CenterBacteria identified in Blood by [id number] 19:30:00* Test Item Value Reference Range Interpretation Comments blood culture (test code = blood culture) see below performing lab: (test code = performing lab:) [facility] CenterCBC W Auto Differential panel - [id number] 17:52:00 * Test Item Value Reference Range Interpretation Comments white blood cell (test code = white blood cell) 14.1 K/mm3 4.5-12 .5 H red blood cell (test code = red blood cell) 4.24 mill/mm3 4.0-5.8 hemoglobin (test code = hemoglobin) 12.1 gram/dL 13.0-17.5 L hematocrit (test code = hematocrit) 37.1 % 42.0-52.0 L mean cell volume (test code = mean cell volume) 87.5 fL 80.4-9 8 mean cell HGB (test code = mean cell HGB) 28.5 pg 27.0-33.0 mean cell HGB concetration (test code = mean cell HGB concet ration) 32.6 g/dL 33.0-36.0 L red cell distribution width (test code = red cell distributi on width) 15.0 % 11.6-16.2 platelet count (test code = platelet count) 265 K/mm3 150-450 mean platelet volume (test code = mean platelet volume) 8.8 fL 6.7-10.0 neutrophil % (test code = neutrophil %) 87.0 % 39.0-69.0 H lymphocyte % (test code = lymphocyte %) 3.7 % 23.0-38.0 L monocyte % (test code = monocyte %) 8.5 % 3.0-8.0 H eosinophil % (test code = eosinophil %) 0.6 % 0.0-5.0 basophil % (test code = basophil %) 0.2 % 0.0-1.0 neutrophil # (test code = neutrophil #) 12.20 K/mm3 1.8-7.7 H lymphocyte # (test code = lymphocyte #) 0.5 K/mm3 1.0-5.0 L monocyte # (test code = monocyte #) 1.20 K/mm3 0-0.8 H eosinophil # (test code = eosinophil #) 0.1 K/mm3 0.0-0.5 basophil # (test code = basophil #) 0.0 K/mm3 0.0-0.2 performing lab: (test code = performing lab:) [facility] CenterComprehensive metabolic 2000 panel - Serum or Plasma 2016-03-31 17:52:00* Test Item Value Reference Range Interpretation Comments sodium (test code = sodium) 136 mmol/L 135-148 potassium (test code = potassium) 4.8 mmol/L 3.5-5.1 chloride (test code = chloride) 97 mmol/L 101-109 L carbon dioxide (test code = carbon dioxide) 31.8 mmol/L 21-32 anion gap (test code = anion gap) 7 mmol/L 10-20 L glucose (test code = glucose) 306 mg/dL 74-106 H blood urea nitrogen (test code = blood urea nitrogen) 31 mg/dL 3-21 H glomerular filtration rate (test code = glomerular filtratio n rate) 51 mL/min >=60 creatinine (test code = creatinine) 1.36 mg/dL 0.55-1.3 H total protein (test code = total protein) 5.6 g/dL 6.5-8.4 L albumin (test code = albumin) 3.2 g/dL 3.4-4.8 L globulin (test code = globulin) 2.4 g/dL 1-10 albumin/globulin ratio (test code = albumin/globulin ratio) 1.3 0.75-1.50 calcium (test code = calcium) 7.7 mg/dL 8.4-10.2 L bilirubin total (test code = bilirubin total) 0.30 mg/dL 0.0-1.0 SGOT/AST (test code = SGOT/AST) 22 U/L 6-32 SGPT/ALT (test code = SGPT/ALT) 58 U/L 12-78 alkaline phosphatase total (test code = alkaline phosphatase total) 76 U/L 38-126 performing lab: (test code = performing lab:) [facility] CenterLipase [Enzymatic activity/volume] in Serum or Plasma 2016-03-31 17:52:00* Test Item Value Reference Range Interpretation Comments lipase (test code = lipase) 307 U/L 73.0-393.0 performing lab: (test code = performing lab:) [facility] CenterMagnesium [Moles/volume] in Serum or [id number] 17:52:00* Test Item Value Reference Range Interpretation Comments magnesium (test code = magnesium) 1.8 mg/dL 1.6-2.3 performing lab: (test code = performing lab:) [facility] CentercTnI [id number] 17:35:00* Test Item Value Reference Range Interpretation Comments troponin I rapid (test code = troponin I rapid) 0.04 NG/mL <0.08 performing lab: (test code = performing lab:) [facility] CenterBNP [id number] 17:35:00* Test Item Value Reference Range Interpretation Comments BNP rapid (test code = BNP rapid) 77 pg/mL 0-100 performing lab: (test code = performing lab:) [facility] CenterBacteria identified in Urine by [id number] 17:19:00* Test Item Value Reference Range Interpretation Comments urine culture (test code = urine culture) see below performing lab: (test code = performing lab:) [facility] CenterUrinalysis complete panel - [id number] 17:18:00* Test Item Value Reference Range Interpretation Comments UA color (test code = UA color) light yellow yellow UA appearance (test code = UA appearance) clear clear UA glucose dipstick (test code = UA glucose dipstick) >=500 negative A UA bilirubin dipstick (test code = UA bilirubin dipstick) negative negative UA ketone dipstick (test code = UA ketone dipstick) negative ne gative UA specific gravity (test code = UA specific gravity) 1.015 1.001-1.035 UA blood dipstick (test code = UA blood dipstick) negative nega tive UA pH dipstick (test code = UA pH dipstick) 5.0 5.0-8.0 UA protein dipstick (test code = UA protein dipstick) negative negative UA urobiliniogen dipstick (test code = UA urobiliniogen dips tick) negative negative UA nitrite dipstick (test code = UA nitrite dipstick) negative negative UA leukocyte esterase W reflex (test code = UA leukocy te esterase W reflex) negative negative UA WBC (test code = UA WBC) 0-5 0-5 UA RBC (test code = UA RBC) 0-2 0-5 UA mucus (test code = UA mucus) few few performing lab: (test code = performing lab:) [facility]
[2019-07-31] MEDS ORDERED: ASPIRIN 325 MG TAB ONE (09:51)
[2019-07-31] MEDS ORDERED: AMLODIPINE BESYL5 MG PO (09:51)
[2019-07-31] MEDS ORDERED: METOPROLOL SUCC25 MG PO (09:51)
[2019-07-31] MEDS ORDERED: METFORMIN HCL500 M2 PO (09:51)
[2019-07-31] MEDS ORDERED: BUDESONIDE0.5 MG/2 M INH (09:51)
[2019-07-31] MEDS ORDERED: NITROGLYCERIN0.4 MG SL (09:51)
[2019-07-31] MEDS ORDERED: TRAZODONE HCL50 MG PO (09:51)
[2019-07-31] MEDS ORDERED: FENTANYL CITRATE/PF 100MCG/2 ML INJ ONE (10:06)
[2019-07-31] MEDS ORDERED: LIDOCAINE HCL 2% LOCAL 20 ML VIAL ONE (10:06)
[2019-07-31] MEDS ORDERED: SODIUM CHLORIDE 0.9% 1000ML 1,000 ML ONE (10:06)
[2019-07-31] MEDS ORDERED: HEPARIN SOD/SOD CHLORIDE 2,000 ML ONE (10:06)
[2019-07-31] MEDS ORDERED: MIDAZOLAM HCL 2 MG/2 ML VIAL ONE (10:06)
[2019-07-31] MEDS ORDERED: IOPAMIDOL 370 MG/ML 200 ML INFUS..BTL INJ ONE (10:06)
[2019-07-31] MEDS ORDERED: CLOPIDOGREL BISULFATE 75 MG TAB ONE (11:09)
--- NOTE | 2019-07-31 11:38 | NUR ---
1138 Pt has home o2 2lmn BC to continue remains sat 100% ds/rn
--- NOTE | 2019-07-31 11:38 | NUR ---
1138 am/ RECEIVING NOTE [employer] [employer] [employer]............................................................... Bedside report received from TOAN Marr. Identifierx2. Alert oriented and appropriate, PERRLA, respirations even and unlabored to room air. Pulses x4 extremities equal and strong. Pedal pulses PT/DP X4 Cap fill brisk < 3 sec. Rt Tr band intact.ok decrease air at 1235. No gross issues pain pallor pressure or dysrhythmia. Rt angio seal groin site with no gross issues. Skin warm and dry integrity appears D/I. IV 20g tort ac , presents healthy w/o s/s of infiltration or complaint. Abdomen soft and supple. pt offered toileting, denies need to urinate or defecate. No personal affects with patient. Family Marleni Melgoza son [phone] Pt fluctuates understanding of POC. Escort Patients son available at this time for MD to speak with him. Currently w/o complaint of pain or need.ds/rn
--- NOTE | 2019-07-31 13:30 | NUR ---
1330p RADIAL COMPRESSION REMOVAL NOTE: Initial Cuff volume cc 1330p -2cc Removed No hematoma/bleeding noted with normal neurovascular function. 1345p -5cc Removed No hematoma/ bleeding noted with normal neurovascular function. 1400p -5cc Removed No hematoma/bleeding noted with normal neurovascular function. Air removal completed. Stasis achieved sterile 2x2,Tegaderm, Coban dressing No hematoma, bleeding noted with normal neurovascular function. Wrist splint in place. Pt instructed on POC. Ds/Rn
--- NOTE | 2019-07-31 14:35 | NUR ---
1435p verified with silvano Adam RN. phone call necessity for tel obsv. bed derrek. Pt stable,Sinus Rythm, Rt wrist stabilized No gross issues pain,pallor,pressure or dysrhythmia. Rt groin angioseal NO gross issues or hematoma or bleeding. ds/rn
--- OUTSIDE RECORDS SUMMARY | 2019-07-31 14:58 | XMS REPORT | Continuity of Care Document ---
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 Radiographic correlation is suggested. [id number] 11/14/2017 [facility] Hand 3 views DX EXAM: XR LEFT [...] degenerative changes of the left hand. 07/10/2016 [facility] Consultation Notes No Data Provided for This Section Discharge Summaries No Data Provided for This Section History and Physicals No Data Provided for This Section Vital Signs No Data Provided for This Section Encounters Location Location Details Encounter Type Encounter Number Reason For Visit Attending Provider ADM Date DC Date Status Source [facility] [place] [facility] Di[facility] Services [id number] 00 Sunday07/10/2016 07/11/2016 [facility] Outpatient [id number] Richéctor Aguero 11/14/2017 11/15/2017 [facility] Procedures No Data Provided for This Section Assessment and Plan No Data Provided for This Section Plan of Care No Data Provided for This Section Social History Social History Date Source No data available for this section 11/15/2017 [facility] No data available for this section [facility] [place] [facility] No Data Provided for This Section Advance Directives No Data Provided for This Section Functional Status No Data Provided for This Section
--- OUTSIDE RECORDS SUMMARY | 2019-07-31 14:59 | XMS REPORT ---
Author Author [facility] t Organization [facility] Address [address] [place] [address] Phone Unavailable Care Team Providers Care [employer] Make Up Helper Name Role Phone Valentín Aguero Attphys ChuyTammie han Attphys Payers Payer Name Policy Type Policy Number Effective Date Expiration Date S ource Problems Condition Name Condition Details Condition Category Status Onset Date Resolution Date Last Treatment Date Treating Clinician Comments Source Obstructive sleep apnea syndrome Obstructive Sleep Apnea Syndrom e Problem Active 2017-02-15 00:00:00 [facility] Psoriasis Psoriasis Problem Active 2016-11-07 00:00:[address] 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 Insomnia Insomnia Problem Active 2016-10-13 00:00:[address] [facility] Complex regional pain syndrome, type I Complex Regional Pain Syndrome, Type I Problem Active 2016-10-13 00:00:[address] [facility] Flaccid paralysis Flaccid Paralysis Problem Active 2016-09-06 00:00:[address] [facility] Hypertriglyceridemia Hypertriglyceridemia Problem [facility] Type 2 diabetes mellitus Type 2 Diabetes Mellitus Problem Acti ve 2016-03-31 00:00:[address] [facility] Hypercholesterolemia Hypercholesterolemia Problem Active 00:00:00 [facility] Hypertensive disorder Hypertensive Disorder Problem Active 201 09-16-12 00:00:00 [facility] ractice Allergies, Adverse Reactions, Alerts Allergy Name Allergy Type Status Severity Reaction(s) Onset Date Inacti ve Date Treating Clinician Comments Source No Known Allergies DA Active U 2016-03-31 00:00:00 [facility] Codeine Allergy to substance Active Abdominal pain [facility] Social History Smoking Status Start Date Stop Date Source Never Smoker [facility] ractice Medications Ordered Medication Name Filled Medication Name Start Date Stop Da te Current Medication? Ordering Clinician Indication Dosage Frequency Signature (SIG) Comments Components Source methylprednisolone 4 mg tablets in a dose pack methylp rednisolone 4 mg tablets in a dose pack 2016-03-31 00:00:00 2016-05-02 00:00:00 No methylprednisolone 4 mg tablets in a dose pack [facility] Accu-Chek Paige Plus test strips Accu-Chek Paige Plus test strips No Accu-Chek Paige Plus test strips [facility] Accu-Chek Softclix Lancets Accu-Chek Softclix Lancets No Accu-Chek Softclix Lancets [facility] cyanocobalamin (vitamin B-12) 2,500 mcg tablet Take 1 tablet every day by oral route. cyanocobalamin (vitamin B-12) 2,500 mcg tablet Take 1 tablet every day by oral route. No 1 Q1D cyanocobalam in (vitamin B-12) 2,500 mcg tablet Take 1 tablet every day by oral route. [facility] fluticasone 50 mcg/actuation nasal spray ,suspension USE 2 SPRAY(S) TWICE A DAY BY INTRANASAL ROUTE DIRECTED FOR 30 DAYS fluticasone 50 mcg/actuation nasal spray,suspension USE 2 SPRAY(S) TWICE A DAY BY INTRANASAL ROUTE DIRECTED FOR 30 DAYS No fluticasone 50 m cg/actuation nasal spray,suspension USE 2 SPRAY(S) TWICE A DAY BY INTRANASAL ROUTE DIRECTED FOR [address] [facility] furosemide 20 mg tablet furosemide 20 mg tablet No furosemide 20 mg tablet [facility] glipizide ER 5 mg tablet, extended relea se 24 hr take 1 tablet once a day with breakfast glipizide ER 5 mg tablet, extended relea se 24 hr take 1 tablet once a day with breakfast No glipi zide ER 5 mg tablet, extended release 24 hr take 1 tablet once a day with breakfast [facility] ketoconazole 2 % topical cream APPLY TO THE AFFECTED AREA(S) BY TOPICAL ROUTE ONCE DAILY ketoconazole 2 % topical cream APPLY TO THE AFFECTED AREA(S) BY TOPICAL ROUTE ONCE DAILY No ketoconazole 2 % topical cream APPLY TO THE AFFECTED AREA(S) BY TOPICAL ROUTE ONCE DAILY [facility] losartan 50 mg-hydrochlorothiazide 12.5 mg tablet Take 1 tablet every day by oral route losartan 50 mg-hydrochlorothiazide 12.5 mg tablet Take 1 tablet every day by oral route No losart an 50 mg-hydrochlorothiazide 12.5 mg tablet Take 1 tablet every day by oral route [facility] Lyrica 100 mg capsule 1 PO in a.m. and 1 PO at noon Ly gio 100 mg capsule 1 PO in a.m. and 1 PO at noon No Lyrica 100 mg capsule 1 PO in a.m. and 1 PO at noon [facility] ice Lyrica 50 mg capsule Take 1 capsule every day by oral route at bedtime. Lyrica 50 mg capsule Take 1 capsule every day by oral route at bedtime. No 1capsule(s) Q1D Lyrica 50 mg capsule Take 1 capsule every day by oral route at bedtime. [facility] metformin 1,000 mg tablet TAKE 1 TAB TWICE A DAY metfo rmin 1,000 mg tablet TAKE 1 TAB TWICE A DAY No metfor min 1,000 mg tablet TAKE 1 TAB TWICE A DAY [facility] ice potassium chloride ER 20 mEq tablet,exte nded release Take 1 tablet every day by oral route for 90 days. potassium chloride ER 20 mEq tablet,exte nded release Take 1 tablet every day by oral route for 90 days. No 1 Q1D potassium chloride ER 20 mEq tablet,extended release Take 1 tablet every day by oral route for 90 days. [facility] ice pravastatin 20 mg tablet take 1 tablet once a day prav astatin 20 mg tablet take 1 tablet once a day No prav astatin 20 mg tablet take 1 tablet once a day [facility] ice tramadol 50 mg tablet TAKE 1 TABLET(S) E VERY 8 HOURS BY ORAL ROUTE NEEDED FOR 30 DAYS. tramadol 50 mg tablet TAKE 1 TABLET(S) E VERY 8 HOURS BY ORAL ROUTE NEEDED FOR 30 DAYS. No tram adol 50 mg tablet TAKE 1 TABLET(S) EVERY 8 HOURS BY ORAL ROUTE NEEDED FOR [address] [facility] triamcinolone acetonide 0.1 % topical cream triamcinol one acetonide 0.1 % topical cream No triamcinolone acetonide 0.1 % topical cream [facility] vitamin E 400 unit capsule Take 1 capsule every day by oral route. vitamin E 400 unit capsule Take 1 capsule every day by oral route. No 1capsule(s) Q1D vitamin E 400 unit capsule Take 1 capsule every day by oral route. [facility] clotrimazole 1 % topical cream APPLY TO [...] PER DAY IN THE MORNING AND EVENING [facility] meloxicam 15 mg tablet meloxicam 15 mg tablet 2017-04-24 00:00:00 No meloxicam 15 mg tablet [facility] actice Nasonex 50 mcg/actuation [place] 2 s prays every day by intranasal route for 90 days. Nasonex 50 mcg/actuation [place] 2 s prays every day by intranasal route for 90 days. 2017-04-24 00:00:00 No 2spray(s) Q1D Nasonex 50 mcg/actuation [place] 2 sprays every day by intranasal route for [address] [facility] gabapentin 300 mg capsule gabapentin 300 mg capsule 00:00:00 No gabapentin [address] [facility] Lyrica 75 mg capsule Take 1 capsule twice a day by ora l route for 7 days. Lyrica 75 mg capsule Take 1 capsule twice a day by oral route for 7 days. 2017-01-18 00:00:00 No 1capsule(s) BID Lyrica 75 mg capsule Take 1 capsule twice a day by oral route for [address] [facility] amoxicillin 500 mg capsule amoxicillin 500 mg capsule 2016 00:00:00 No amoxicillin [address] [facility] azithromycin 500 mg tablet azithromycin 500 mg tablet 2016 00:00:00 No azithromycin [address] [facility] Linzess 145 mcg capsule Take 1 capsule every day by or al route for 13 days. Linzess 145 mcg capsule Take 1 capsule every day by oral route for 13 days. 2017-01-15 00:00:00 No 1capsule(s) Q1D Linz ess 145 mcg capsule Take 1 capsule every day by oral route for [address] [facility] Milk of Magnesia 400 mg/5 mL oral suspension take 1 ta blespoons once at bedtime Milk of Magnesia 400 mg/5 mL oral suspension take 1 tablespoons once at bedtime 2017-01-15 00:00:00 No Milk of Magnesia 400 mg/5 mL oral suspension take 1 tablespoons once at bedtime [facility] gabapentin 600 mg tablet gabapentin 600 mg tablet 2016-12-19 00: 00:00 No gabapentin 600 mg tablet Rosemarie tejedae [facility] lisinopril 2.5 mg tablet Take 1 tablet by mouth once a day lisinopril 2.5 mg tablet Take 1 tablet by mouth once a day 2016-12-19 00:00:00 No lisinopril 2.5 mg tablet Take 1 tablet by mouth once a day [facility] ondansetron 8 mg disintegrating tablet ondansetron 8 mg disinteg rating tablet 2016-11-07 00:00:00 No ondansetron 8 mg dis integrating tablet [facility] Accu-Chek Paige Plus Meter Accu-Chek Paige Plus Meter 2016 00:00:00 No Accu-Chek Paige Plus Meter [facility] glipizide 5 mg tablet glipizide 5 mg tablet 2016-10-31 00:00:00 No glipizide 5 mg tablet [facility] ctice megestrol 400 mg/10 mL (40 mg/mL) oral suspension mege strol 400 mg/10 mL (40 mg/mL) oral suspension 2016-10-31 00:00:00 No megestrol 400 mg/10 mL (40 mg/mL) oral suspension [facility] vitamin E (dl, acetate) 400 unit capsule Take 1 capsule every day by oral route. vitamin E (dl, acetate) 400 unit capsule Take 1 capsule every day by oral route. 2016-10-31 00:00:00 No 1capsule(s) Q1D vitamin E (dl, acetate) 400 unit capsule Take 1 capsule every day by oral route. [facility] potassium chloride ER 10 mEq tablet,exte nded release 10 MEQ TAKE ONE TABLET ONCE DAILY potassium chloride ER 10 mEq tablet,exte nded release 10 MEQ TAKE ONE TABLET ONCE DAILY 2016-10-13 00:00:00 No potassium chloride ER 10 mEq tablet,extended release 10 MEQ TAKE ONE TABLET ONCE DAILY [facility] Vitamin D3 1,000 unit capsule Take 1 capsule every day by oral route. Vitamin D3 1,000 unit capsule Take 1 capsule every day by oral route. 2016-10-13 00:00:00 No 1capsule(s) Q1D Vitamin D3 1, 000 unit capsule Take 1 capsule every day by oral route. [facility] potassium chloride ER 10 mEq tablet,extended release(p art/cryst) potassium chloride ER 10 mEq tablet,extended release(part/cryst) 2016-09-16 00:00:00 No potassium chloride ER 10 mEq tablet,exte nded release(part/cryst) [facility] gabapentin 400 mg capsule Take 1 capsule 3 times a day by oral route for 30 days. gabapentin 400 mg capsule Take 1 capsule 3 times a day by oral route for 30 days. 2016-09-18 00:00:00 No 1capsule(s) TID gabapentin 400 mg capsule Take 1 capsule 3 times a day by oral route for [address] [facility] famotidine 20 mg tablet famotidine 20 mg tablet 2016-09-06 00:00 :00 No famotidine [address] [facility] ferrous sulfate 325 mg (65 mg iron) [...] day by oral route for [address] [facility] Movantik 25 mg tablet Take 1 tablet every day by oral route for 90 days. Movantik 25 mg tablet Take 1 tablet every day by oral route for 90 days. 2016-09-06 00:00:00 No 1 Q1D Movan tik 25 mg tablet Take 1 tablet every day by oral route for 90 days. [facility] nortriptyline 10 mg capsule nortriptyline 10 mg capsule 2016-09-06 00:00:00 No nortriptyline [address] [facility] omeprazole 40 mg capsule,delayed release omeprazole 40 mg capsule,delayed release 2016-09-06 00:00:00 No omep razole 40 mg capsule,delayed release [facility] ice Vitamin C 1,000 mg tablet Take 1 tablet every day by o ral route as directed. Vitamin C 1,000 mg tablet Take 1 tablet every day by oral route as directed. 2016-09-06 00:00:00 No 1 Q1D Vitam in C 1,000 mg tablet Take 1 tablet every day by oral route as directed. [facility] acetaminophen 300 mg-codeine 30 mg tablet acetaminophe n 300 mg-codeine 30 mg tablet 2016-08-28 00:00:00 No acet aminophen 300 mg-codeine 30 mg tablet [facility] ice ondansetron HCl 8 mg tablet ondansetron HCl 8 mg tablet 2016-08-28 00:00:00 No ondansetron HCl [address] [facility] sulfamethoxazole 800 mg-trimethoprim 160 mg tablet sul famethoxazole 800 mg- trimethoprim 160 mg tablet 2016-08-28 00:00:00 No sulfamethoxazole 800 mg-trimethoprim [address] [facility] trazodone 100 mg tablet trazodone 100 mg tablet 2016-08-28 00:00 :00 No trazodone [address] [facility] azithromycin 250 mg tablet azithromycin 250 mg tablet 2016 00:00:00 No azithromycin [address] [facility] Tessalon Perles 100 mg capsule Take 1 [...] oral route as needed for 10 days. [facility] ice potassium chloride 10MEQ TAKE ONE TABLET ONCE DAILY p otassium chloride 10MEQ TAKE ONE TABLET ONCE DAILY 2016-05-15 00:00:00 No potassium chloride 10MEQ TAKE ONE TABLET ONCE DAILY [facility] diltiazem 60 mg tablet Take 1 tablet basil ry 6 hours by oral route as directed for 90 days. diltiazem 60 mg tablet Take 1 tablet basil ry 6 hours by oral route as directed for 90 days. 2016-05-02 00:00:00 No 1 Q6H diltiazem 60 mg tablet Take 1 tablet every 6 hours by oral route as directed for [address] [facility] enalapril maleate 5 mg tablet Take 1 tab let every day by oral route as directed for 90 days. enalapril maleate 5 mg tablet Take 1 tab let every day by oral route as directed for 90 days. 2016-05-02 00:00:00 No 1 Q1D enalapril maleate 5 mg tablet Take 1 tablet every day by oral route as directed for [address] [facility] montelukast 10 mg tablet Take 1 tablet e very day by oral route as directed for 90 days. montelukast 10 mg tablet Take 1 tablet e very day by oral route as directed for 90 days. 2016-05-02 00:00:00 No 1 Q1D montelukast 10 mg tablet Take 1 tablet every day by oral route as directed for [address] [facility] ProAir HFA 90 mcg/actuation aerosol inhaler ProAir HFA 90 mcg/actuation aerosol inhaler 2016-05-02 00:00:00 No ProA ir HFA 90 mcg/actuation aerosol inhaler [facility] quetiapine 25 mg tablet quetiapine 25 mg tablet 2016-03-31 00:00 :00 No quetiapine [address] [facility] Immunizations Ordered Immunization Name Filled Immunization Name Date Status Comments Source influenza, high dose seasonal influenza, high dose seasonal 2016 16:13:[address] [facility] Tdap Tdap 2016-10-02 16:51:00 Completed [facility] pneumococcal conjugate PCV 13 pneumococcal conjugate PCV 13 2016 16:50:[address] [facility] Vital Signs Vital Name Observation Time Observation Value Comments Source BP Diastolic 2017-06-12 00:00:00 72 mm[Hg] [facility] Height 2017-06-12 00:00:00 67 [in_i] [facility] BMI (Body Mass Index) 2017-06-12 00:00:00 30.1 kg/m2 [facility] BP Systolic 2017-06-12 00:00:00 136 mm[Hg] [facility] Body Weight 2017-06-12 00:00:00 192.4 [lb_av] [facility] Body Weight 2016-03-31 00:00:00 174.6 [lb_av] [facility] Procedures Procedure Date / Time Performed Performing Clinician Sour e US, echocardiogram, transthoracic, complete, w/ color flow 2 00:00:[address] [facility] US, echocardiogram, transthoracic, complete, w/ color flow 2 00:00:[address] [facility] BREATHING CAPACITY TEST 2017-05-25 00:00:00 [facility] US, ABDOMINAL COMPLETE 2016-08-30 00:00:00 [facility] US, ABDOMINAL COMPLETE 2016-08-28 00:00:00 [facility] US, ABDOMINAL COMPLETE 2016-08-24 00:00:00 [facility] electrocardiogram 2016-03-31 00:00:00 [facility] Cholecystectomy 2015-03-19 00:00:00 [facility] ly [facility] Plan of Care Planned Activity Planned Date Details Comments Source Instructions [facility] Instructions [facility] Encounters Start Date/Time End Date/Time Encounter Type Admission Type Attendi [facility] Emergency Department Facility Care Department Encounter ID Source 2017-11-14 09:01:00 2017-11-14 23:59:00 Outpatient Ric Aguero [facility] [id number] [facility] 2017-06-12 00:00:00 2017-06-12 00:00:00 ZACHERY Duron: [id number] [facility], [address] [address], Ph. [facility] [place], [place] [id number] [facility] 2017-05-30 00:00:00 2017-05-30 00:00:00 Peng Galarza MD: [id number] [facility], [address] [place] [address], Ph. [facility] [place], [place] [id number] [facility] 2017-05-25 00:00:00 2017-05-25 00:00:00 Peng Galarza MD: [id number] [facility], [address] [address], Ph. [facility], [place] [id number] [facility] 2017-04-24 00:00:00 2017-04-24 00:00:00 Peng Galarza MD: [id number] [facility] [place], [address] [place] [address], Ph. [facility] [id number] [facility] Prac harsh 2017-04-06 00:00:00 2017-04-06 00:00:00 Peng Galarza MD: [id number] [facility] [place], [address] [address], Ph. V[facility] [id number] [facility] harsh 2017-03-20 00:00:00 2017-03-20 00:00:00 Peng Galarza MD: [id number] [facility] [place], [address] [address], [facility]. [facility] [id number] [facility] harsh 2017-03-01 00:00:00 2017-03-01 00:00:00 Peng Galarza MD: [id number] [facility] [place], [address] [address], Ph. [facility] [id number] [facility] Pr[facility] harsh 2017-01-31 00:00:00 2017-01-31 00:00:00 Peng Galarza MD: [id number] [facility] [place], [address] [place] [address], Ph. P [facility] [id number] [facility] Pr[facility] harsh 2017-01-15 00:00:00 2017-01-15 00:00:00 MANDI KendrickP: 64694 [facility] [place], [address] [place] [address], Ph. [facility] [id number] [facility] Pr[facility] harsh 2016-12-19 00:00:00 2016-12-19 00:00:00 Peng Galarza MD: [address], [address], [place] [address], Ph. VFP [place] [facility] [id number] [facility] harsh 2016-11-07 00:00:00 2016-11-07 00:00:00 Peng Galarza MD: [address], [address], [place] [address], Ph. [facility] [facility] [id number] [facility] harsh 2016-10-31 00:00:00 2016-10-31 00:00:00 Peng Galarza MD: [address], [address] [address], Ph. [place] [facility] [id number] [facility] Pr[facility] harsh 2016-10-24 00:00:00 2016-10-24 00:00:00 Peng Galarza MD: [address], [address] [address], Ph. [place] [facility] - [facility] [id number] [facility] Family Pr[facility] harsh 2016-10-13 00:00:00 2016-10-13 00:00:00 MANDI KendrickP: [address], [address] [place] [address], Ph. [place] [facility] [id number] [facility] harsh 2016-10-02 00:00:00 2016-10-02 00:00:00 Peng Galarza MD: [id number] [facility] [address], Ph. [place] [facility] [id number] [facility] Pr[facility] harsh 2016-09-18 00:00:00 2016-09-18 00:00:00 MANDI KendrickP: [address], [address] [address], Ph. [place] [facility] [id number] [facility] Pr[facility] harsh 2016-09-06 00:00:00 2016-09-06 00:00:00 Peng Galarza MD: [address] [facility], [address] [address], Ph. [place] [facility] [id number] [facility] Pr[facility] harsh 2016-08-30 00:00:00 2016-08-30 00:00:00 Peng Galarza MD: [address]16 [facility], [address] [address], Ph. [place]FP [place] [facility] [id number] [facility] harsh 2016-08-28 00:00:00 2016-08-28 00:00:00 Shamika MANDI CazaresP: 84168 [facility], [address] [address], Ph. VFP [place] - [facility] [id number] [facility] Pr[facility] harsh 2016-08-24 00:00:00 2016-08-24 00:00:00 Shamika Sage, GEAR FINISHER: [address] [facility], [address] [address], Ph. VFP [place] [facility] - [facility] [id number] [facility] harsh 2016-08-17 00:00:00 2016-08-17 00:00:00 MANDI KendrickP: [address] [facility], [address] [address], Ph. [place]FP [place] [facility] [id number] [facility] Family Pr[facility] harsh 2016-08-15 00:00:00 2016-08-15 00:00:00 ZACHERY German : [address] [facility], [address] [address], Ph. VFP [place] [facility] [id number] [facility] 2016-08-08 00:00:00 2016-08-08 00:00:00 Peng Galarza MD: [address] [facility], [address] [address], Ph. [facility] [id number] [facility] 2016-08-02 00:00:00 2016-08-02 00:00:00 Peng Galarza MD: 67487 [facility], [address] [address], Ph. [facility] [place] [place] [id number] [facility] 2016-07-14 00:00:00 2016-07-14 00:00:00 Joce millan MD: 14006 [facility], [address] [address], Ph. [facility] [place], [place] [id number] [facility] 2016-07-10 12:19:00 2016-07-10 23:59:00 Outpatient Sunday, Rosi Cho OIB MHOIB [id number] [facility] patient Imaging [facility] 2016-06-22 00:00:00 2016-06-22 00:00:00 Peng Galarza MD: [address]82 [facility], [address] [address], Ph. [facility] [place] [place] [id number] [facility] 2016-05-29 00:00:00 2016-05-29 00:00:00 Wendi Galarza: [address] [facility], [address] [address], Ph. [facility] [id number] [facility] 2016-05-26 00:00:00 2016-05-26 00:00:00 Joce millan MD: [address]8985 [facility], [address] [address], Ph. [facility] [place] [place] [id number] [facility] Practice 2016-05-15 00:00:00 2016-05-15 00:00:00 Shamika Cazares, GEAR FINISHER: [address]68 [facility] [facility], [address] [address], Ph. [facility] [place], [place] [id number] [facility] 2016-05-02 00:00:00 2016-05-02 00:00:00 Peng Galarza MD: [id number] [facility], [facility] [address] [address], Ph. [facility] [place], [place] [id number] [facility] 2016-04-20 00:00:00 2016-04-20 00:00:00 Wendi Geovanni: [address] [facility], [address], [place] [address], Ph. [facility] [id number] [facility] 2016-04-06 00:00:00 2016-04-06 00:00:00 Wendi Galarza: [address] [facility], [address] [address], Ph. [facility] [id number] [facility] 2016-03-31 00:00:00 2016-03-31 00:00:00 Joce millan MD: [id number] [facility], [address] [address], Ph. [facility] [place], [place] [id number] [facility] Results Test Description Test Time Test Comments Results Result Comments Source Hemoglobin A1c/Hemoglobin.total in Blood 2017-01-16 07:13:00 Test Item hemoglobin A1C (test code = hemoglobin A1C) 7.7 % 4.8-5.6 H estim. avg glu (EAG) (test code = estim. avg glu (EAG)) 174 mg/dL [facility] W Auto Differential panel - [id number] 07:13:00 * Test Item Value Reference Range [...] comments: (test code = hematology comments:) comment [facility] 1996 panel - Serum or [id number] 07:13:00* Test Item Value Reference Range Interpretation Comments cholesterol, total (test code = cholesterol, total) 148 mg/dL 10 0-199 triglycerides (test code = triglycerides) 182 mg/dL 0-149 H HDL cholesterol (test code = HDL cholesterol) 49 mg/dL >39 VLDL cholesterol margaret (test code = VLDL cholesterol margaret) 36 mg/dL 5-40 LDL cholesterol calc (test code = LDL cholesterol calc) 63 mg/dL 0-99 [facility] PracticeComprehensive metabolic 2000 panel - Serum or [...] code = ALT (SGPT)) 16 IU/L 0-[address] [facility] HospitalHemoglobin.gastrointestinal [Presence] in [id number] 17:06:00* Test Item Value Reference Range Interpretation Comments fecal globin (medicare) by nurse staff community [facility] ry (test code = fecal globin (medicare) by immunochemistry) not detected [facility] HospitalHelicobacter pylori [Presence] in Stomach by urea breath [id number] 12:12:00* Test Item Value Reference Range Interpretation Comments H. pylori breath test (test code = H. pylori breath test) negative negative [facility]Com[facility] 2000 panel - Serum or Plasma [...] code = ALT (SGPT)) 13 IU/L 0-[address] [facility] HospitalThyrotropin [Units/volume] in Serum or [id number] 10:14:00* Test Item Value Reference Range Interpretation Comments TSH (test code = TSH) 1.400 uIU/mL 0.450-4.[address] [facility] 1996 panel - Serum or [id number] 10:14:00* Test Item Value Reference Range Interpretation Comments cholesterol, total (test code = cholesterol, total) 138 mg/dL 10 0-199 triglycerides (test code = triglycerides) 179 mg/dL 0-149 H HDL cholesterol (test code = HDL cholesterol) 43 mg/dL >39 VLDL cholesterol margaret (test code = VLDL cholesterol margaret) 36 mg/dL 5-40 LDL cholesterol calc (test code = LDL cholesterol calc) 59 mg/dL 0-[address] [facility] HospitalHemoglobin A1c/Hemoglobin.total in [id number] 10:14:00* Test Item Value Reference Range Interpretation Comments hemoglobin A1C (test code = hemoglobin A1C) 6.8 % 4.8-5.6 H estim. avg glu (EAG) (test code = estim. avg glu (EAG)) 148 mg/dL [facility] HospitalThyroxine (T4) [Mass/volume] in Serum or [id number] 10:14:00* Test Item Value Reference Range Interpretation Comments thyroxine (T4) (test code = thyroxine (T4)) 7.2 ug/dL 4.5-12.[address] [facility] HospitalPrealbumin [Mass/volume] in Serum or [id number] 10:14:00* Test Item Value Reference Range Interpretation Comments prealbumin (test code = prealbumin) 29 mg/dL 9-[address] [facility] HospitalCB W Auto Differential panel - [id number] 10:14:00 * Test Item Value Reference Range [...] comments: (test code = hematology comments:) comment [facility] PracticeGlucose [Mass/volume] in Capillary blood by Glucometer 2016-04-05 16:04:00* Test Item Value Reference Range Interpretation Comments glubed (test code = glubed) 177 mg/dL 74-106 H performing lab: (test code = performing lab:) [facility] PracticeGlucose [Mass/volume] in Capillary blood by Glucometer 2016-04-05 12:03:00* Test Item Value Reference Range Interpretation Comments glubed (test code = glubed) 347 mg/dL 74-106 H performing lab: (test code = performing lab:) [facility] HospitalGlucose [Mass/volume] in Capillary blood by Glucometer 2016-04-05 08:06:00* Test Item Value Reference Range Interpretation Comments glubed (test code = glubed) 192 mg/dL 74-106 H performing lab: (test code = performing lab:) [facility]CBC W Auto Differential panel - [id number] 04:16:00 * Test Item Value Reference Range [...] performing lab: (test code = performing lab:) [facility]Basic [facility] panel - [id number] 04:16:00* Test Item Value Reference Range Interpretation [...] performing lab: (test code = performing lab:) [facility] HospitalGlucose [Mass/volume] in Capillary blood by Glucometer 2016-04-04 20:30:00* Test Item Value Reference Range Interpretation Comments glubed (test code = glubed) 125 mg/dL 74-106 H performing lab: (test code = performing lab:) [facility] HospitalGlucose [Mass/volume] in Capillary blood by Glucometer 2016-04-04 15:44:00* Test Item Value Reference Range Interpretation Comments glubed (test code = glubed) 226 mg/dL 74-106 H performing lab: (test code = performing lab:) [facility] HospitalGlucose [Mass/volume] in Capillary blood by Glucometer 2016-04-04 11:16:00* Test Item Value Reference Range Interpretation Comments glubed (test code = glubed) 238 mg/dL 74-106 H performing lab: (test code = performing lab:) [facility] HospitalGlucose [Mass/volume] in Capillary blood by Glucometer 2016-04-04 07:47:00* Test Item Value Reference Range Interpretation Comments glubed (test code = glubed) 103 mg/dL 74-106 performing lab: (test code = performing lab:) [facility] HospitalGlucose [Mass/volume] in Capillary blood by Glucometer 2016-04-03 20:44:00* Test Item Value Reference Range Interpretation Comments glubed (test code = glubed) 115 mg/dL 74-106 H performing lab: (test code = performing lab:) [facility] HospitalGlucose [Mass/volume] in Capillary blood by Glucometer 2016-04-03 16:00:00* Test Item Value Reference Range Interpretation Comments glubed (test code = glubed) 216 mg/dL 74-106 H performing lab: (test code = performing lab:) [facility] PracticeGlucose [Mass/volume] in Capillary blood by Glucometer 2016-04-03 12:08:00* Test Item Value Reference Range Interpretation Comments glubed (test code = glubed) 413 mg/dL 74-106 H performing lab: (test code = performing lab:) [facility] HospitalGlucose [Mass/volume] in Capillary blood by Glucometer 2016-04-03 08:06:00* Test Item Value Reference Range Interpretation Comments glubed (test code = glubed) 86 mg/dL 74-106 performing lab: (test code = performing lab:) [facility] Auto Differential panel - [id number] 04:48:00 * Test Item Value Reference Range [...] performing lab: (test code = performing lab:) [facility] HospitalBasic metabolic panel - [id number] 04:48:00* Test Item Value Reference Range Interpretation [...] performing lab: (test code = performing lab:) [facility] HospitalPhosphate [Moles/volume] in [id number] 04:48:00* Test Item Value Reference Range Interpretation Comments phosphorus (test code = phosphorus) 3.9 mg/dL 2.6-4.7 performing lab: (test code = performing lab:) [facility] HospitalMagnesium [Moles/volume] in Serum or [id number] 04:48:00* Test Item Value Reference Range Interpretation Comments magnesium (test code = magnesium) 2.0 mg/dL 1.6-2.3 performing lab: (test code = performing lab:) [facility] HospitalGlucose [Mass/volume] in Capillary blood by Glucometer 2016-04-02 20:29:00* Test Item Value Reference Range Interpretation Comments glubed (test code = glubed) 304 mg/dL 74-106 H performing lab: (test code = performing lab:) [facility] HospitalGlucose [Mass/volume] in Capillary blood by Glucometer 2016-04-02 16:04:00* Test Item Value Reference Range Interpretation Comments glubed (test code = glubed) 183 mg/dL 74-106 H performing lab: (test code = performing lab:) [facility] HospitalGlucose [Mass/volume] in Capillary blood by Glucometer 2016-04-02 11:16:00* Test Item Value Reference Range Interpretation Comments glubed (test code = glubed) 301 mg/dL 74-106 H performing lab: (test code = performing lab:) [facility] HospitalGlucose [Mass/volume] in Capillary blood by Glucometer 2016-04-02 09:07:00* Test Item Value Reference Range Interpretation Comments glubed (test code = glubed) 222 mg/dL 74-106 H performing lab: (test code = performing lab:) [facility] HospitalHemoglobin A1c/Hemoglobin.total in [id number] 03:52:00* Test Item Value Reference Range Interpretation Comments glycosylated hemoglobin (ha1c) (test code = glycosylat ed hemoglobin (ha1c)) 8.1 % 4.5-6.2 H estimated average glucose (test code = estimated average glucose) 1 86 mg/dL performing lab: (test code = performing lab:) [facility] HospitalInfluenza virus A Ag [Presence] in [id number] 21:27:00* Test Item Value Reference Range Interpretation Comments influenza A Ag (test code = influenza A Ag) see below performing lab: (test code = performing lab:) [facility] [Presence] in Unspecified specimen 2016-04-01 21:27:00* Test Item Value Reference Range Interpretation Comments influenza B Ag (test code = influenza B Ag) see below performing lab: (test code = performing lab:) [facility] HospitalGlucose [Mass/volume] in Capillary blood by Glucometer 2016-04-01 20:19:00* Test Item Value Reference Range Interpretation Comments glubed (test code = glubed) 183 mg/dL 74-106 H performing lab: (test code = performing lab:) [facility] HospitalGlucose [Mass/volume] in Capillary blood by Glucometer 2016-04-01 17:19:00* Test Item Value Reference Range Interpretation Comments glubed (test code = glubed) 212 mg/dL 74-106 H performing lab: (test code = performing lab:) [facility] W Auto Differential panel - [id number] 04:39:00 * Test Item Value Reference Range [...] performing lab: (test code = performing lab:) [facility] HospitalBasic metabolic panel - [id number] 04:39:00* Test Item Value Reference Range Interpretation [...] performing lab: (test code = performing lab:) [facility] HospitalTroponin I.cardiac [Mass/volume] in Serum or Plasma 2016-04-01 01:17:00* Test Item Value Reference Range Interpretation Comments troponin-I (test code = troponin-I) 0.06 NG/mL 0.00-0.056 H performing lab: (test code = performing lab:) [facility] HospitalGlucose [Mass/volume] in Capillary blood by Glucometer 2016-03-31 22:56:00* Test Item Value Reference Range Interpretation Comments glubed (test code = glubed) 193 mg/dL 74-106 H performing lab: (test code = performing lab:) [facility] HospitalTroponin I.cardiac [Mass/volume] in Serum or Plasma 2016-03-31 21:59:00* Test Item Value Reference Range Interpretation Comments troponin-I (test code = troponin-I) 0.07 NG/mL 0.00-0.056 H performing lab: (test code = performing lab:) [facility] HospitalBacteria identified in Blood by [id number] 19:45:00* Test Item Value Reference Range Interpretation Comments blood culture (test code = blood culture) see below performing lab: (test code = performing lab:) [facility] HospitalBacteria identified in Blood by [id number] 19:30:00* Test Item Value Reference Range Interpretation Comments blood culture (test code = blood culture) see below performing lab: (test code = performing lab:) [facility] HospitalCBC W Auto Differential panel - [id number] 17:52:00 * Test Item Value Reference Range [...] performing lab: (test code = performing lab:) [facility] HospitalComprehensive [facility] 2000 panel - Serum or Plasma [...] performing lab: (test code = performing lab:) [facility] HospitalLipase [Enzymatic activity/volume] in Serum or Plasma 2016-03-31 17:52:00* Test Item Value Reference Range Interpretation Comments lipase (test code = lipase) 307 U/L 73.0-393.0 performing lab: (test code = performing lab:) [facility] HospitalMagnesium [Moles/volume] in Serum or [id number] 17:52:00* Test Item Value Reference Range Interpretation Comments magnesium (test code = magnesium) 1.8 mg/dL 1.6-2.3 performing lab: (test code = performing lab:) [facility] HospitalcTnI [id number] 17:35:00* Test Item Value Reference Range Interpretation Comments troponin I rapid (test code = troponin I rapid) 0.04 NG/mL <0.08 performing lab: (test code = performing lab:) [facility] HospitalBNP [id number] 17:35:00* Test Item Value Reference Range Interpretation Comments BNP rapid (test code = BNP rapid) 77 pg/mL 0-100 performing lab: (test code = performing lab:) [facility] HospitalBacteria identified in Urine by [id number] 17:19:00* Test Item Value Reference Range Interpretation Comments urine culture (test code = urine culture) see below performing lab: (test code = performing lab:) [facility] HospitalUrinalysis complete panel - [id number] 17:18:00* Test Item Value Reference Range Interpretation [...] performing lab: (test code = performing lab:) [facility]
--- NOTE | 2019-07-31 15:23 | NUR ---
1515 void qs no c/o pain remains elevated bp now 200/78 with repositioning of cuff. Paged Dr Hodgson to see if he wants routine po meds started or another prn for HTN awaiting return call office staff took message. vero/rn
--- NOTE | 2019-07-31 15:55 | NUR ---
1555 reuest po bp meds to start off home medication orders per Dr Hodgson ds/rn
[2019-07-31] MEDS: AMLODIPINE BESYLATE 5 MG TAB PO SCH (16:19)
--- NOTE | 2019-07-31 16:19 | NUR ---
1619 Medicated Metoprolol [id number] and 1621 Amlodipine Besylate 5mg po Remains resting quietly. No gross issues with bleeding normal neuro vascular function rt TR band. Rt groin angio seal w/o gross issues bleeding or hematoma. Bs checked pt 86, doesn't want tray,snack tray at bedside.Family at bedside Still awaiting bed disposition. Remain on home 02 rate 2lnc. Monitor stable,ds/rn
[2019-07-31] MEDS: METOPROLOL SUCCINATE 25 MG TAB XL PO SCH (16:21)
[2019-07-31] MEDS ORDERED: NITROGLYCERIN 0.4 MG SUBL SL PRN (17:00)
--- NOTE | 2019-07-31 17:30 | NUR ---
1730p Report given to Janie JOYA.VS/EKG stable sites transfer to [facility] per stretcher with tele. No gross issues pain,pallor b/p still variable last manual cuff [id number] (left leg cuff does not correlate). O2 remains 2lnc 100%sat. Handoff given face to face left pt in room with RN bed in low position and call light at bedside.Bed brakes on Report to tele room. ds/martita
--- NOTE | 2019-07-31 17:43 | NUR ---
Received patient from [facility] equipment via stretcher. Accompanied by son. NISHA3 to time, person, place. respirations even and unlabored. O2 2LNC. Oriented to room. Instructed to use call light for assistance. Initial physical assessment to be completed by Janie JOYA.
--- NOTE | 2019-07-31 18:05 | NUR ---
BP 194/84 P73. Notified Janie Menon RN (patient's nurse) of BP
--- NOTE | 2019-07-31 18:10 | NUR ---
The pt. received from [facility] sp left heart cath with rca stent. He is awake alert and oriented times3 . Puncture site r groin clean and dry no bleeding.
--- NOTE | 2019-07-31 19:11 | NUR ---
Report to the oncoming nurse.
[2019-07-31] MEDS: BUDESONIDE 0.5MG/2 ML NEB INH SCH (20:20)
[2019-07-31] MEDS: ALBUTEROL SULF 0.083% NEB SOLN 3 ML NEB NEB SCH ×2 (20:20→23:45)
--- NOTE | 2019-07-31 20:30 | NUR ---
ALERTED TO PATIENTS ROOM BY BED ALARM SOUNDING, PT FOUND SITTING ON SIDE OF BED. PT ASSISTED TO AMBULATE TO BATHROOM AND BACK TO BED. LEFT PT LAYING SEMI FOWLERS IN BED, BED IN LOW LOCKED POSITION, SIDE RAILS UPX3, CALL LIGHT AND PHONE WITHIN REACH. BED ALARM ACTIVATED ZONE 1.
[2019-07-31] MEDS ORDERED: ATORVASTATIN 20 MG TAB PO SCH (21:00)
[2019-07-31] MEDS ORDERED: TRAZODONE HCL 50 MG TAB PO SCH (21:00)
--- NOTE | 2019-07-31 21:10 | NUR ---
ALERTED TO PATIENTS ROOM BY PATIENT CALLING OUT LOUD FOR THE NURSE. PT FOUND LAYING IN BED AND REQUESTING PAIN MEDICATION FOR (L) ARM NERVE PAIN. LEFT PT LAYING SEMI FOWLERS IN BED, BED IN LOW LOCKED POSITION, SIDE RAILS UPX2, CALL LIGHT AND PHONE WITHIN REACH. BED ALARM ACTIVATED ZONE 1.
--- NOTE | 2019-07-31 21:30 | NUR ---
ALERTED TO PATIENTS ROOM BY BED ALARM SOUNDING. PT FOUND KNEELING ON (L) KNEE WITH (R) LEG EXTENDED BY SIDE OF BED WITH UPPER BODY DRAPED OVER THE TOP OF THE BED. PT WEARING NON-SKID SOCKS AND CALL LIGHT IN BED. ADDITIONAL NURSES AND TECH CALLED AND PT ASSISTED BACK INTO BED. ASSESSMENT AND NEURO ASSESSMENT PERFORMED.
--- NOTE | 2019-07-31 21:32 | NUR ---
NOTIFIED CHARGE NURSE Juan LEE RN OF PATIENTS FALL.
--- NOTE | 2019-07-31 21:41 | Operative Report ---
DATE OF PROCEDURE: 07/31/2019 SURGEON: Shamar Bravo MD PROCEDURE: Cardiac catheterization. PROCEDURE INDICATION: Unstable angina. PROCEDURES PERFORMED: 1. Left heart catheterization. 2. Selective coronary angiography. 3. Drug-eluting stent PCI of distal RCA into the RPDA using a 2.25 x 32 Synergy drug-eluting stent, postdilated proximally with 2.5 x 2.75 NC Quantum. PROCEDURE COMPLICATIONS: None. ESTIMATED BLOOD LOSS: Less than 15 mL. PROCEDURE SUMMARY: After consent was obtained, the patient was prepped and draped in a sterile fashion. The right radial site was locally infiltrated with 2% lidocaine. An access was obtained with 5-Albanian outer diameter slender sheath. TIG catheter was advanced over a leading J-wire into the proximal ascending aorta. Given presence of type 3 aortic arch with heavy calcifications, making it difficult to engage the ascending aorta without additional advanced techniques. It was felt that this with potentially increased chance of dislodgement of aortic plaque, therefore potentially increase risk for cerebrovascular event and therefore it was decided to switch to right common femoral artery approach. Ultrasound guided access was obtained with micropuncture kit. A 6-Albanian sheath was placed. JL4 and JR4 6-Albanian catheters were used for engagement of left main and right coronary artery, and angiography was performed in multiple views. It was therefore decided to proceed with a JR4 no side holes 6-Albanian guide catheter to engage the right coronary artery for an intervention of the right coronary artery. Heparin to maintain an ACT over 250. Aspirin 325 mg and Plavix 600 mg loading and a run-through wire was used to cross the RCA into the RPDA. For dilatation of the area of distal RCA stenosis and proximal RPDA stenosis was performed with an emerge 2.0 x 20 balloon, inflated to 12 and 18 atmospheres followed by [employer] Synergy drug-eluting stent 2.25 x 32, deployed to 12 atmospheres across the target lesions followed by postdilation with 2.5 x 12 NC Quantum in the xmqpirqk-wx-bnc segment using inflation at 20 atmospheres and followed by additional postdilatation with 2.75 x 8, inflated to 12 and 22 atmospheres serially across the ecjzufiz-ow-dcg segments of the stent. Final angiography reveals a NERY-3 flow from preprocedure NERY-3 flow, stenosis from 80% in the RCA and 70% in the RPDA to 0% post intervention. No flow-limiting dissections, no perforations postintervention. FINDINGS: 1. LV pressure was 132/6 with end-diastolic pressure of 18. 2. Aortic pressure was 129/51. 3. No left ventriculogram was performed. 4. Left main is large in caliber with luminal irregularities, it gives an LAD and circumflex. 5. The LAD has luminal irregularities throughout. It gives a 1st diagonal that has 60% proximal tubular stenosis and it is overall small in caliber. The mid LAD has 30% stenosis. Additional septal perforators and small caliber diagonals arise from the LAD. 6. The circumflex gives 3 obtuse marginal. The first of which is very high intake of a small in caliber and the last two iaoto-ma-qjveoi in caliber with luminal irregularities are noted throughout all the circumflex and its branches. 7. The right coronary artery has an eccentric 30% to 40% proximal stenosis. In the mid segment, he has a 20% to 30% focal stenosis, and in the distal segment he has an 80% stenosis prior to giving the RPDA. The RPDA has a 70% stenosis in the proximal segment. The RPLV is small in caliber with an area of 60% proximal stenosis. This is small in caliber, less than 2 mm in diameter. CONCLUSION: 1. Successful drug-eluting stent PCI of the RCA into the RPDA. Recommend aspirin and Plavix. 2. Post 6-Albanian Angio-Seal closure of the right common femoral artery, 6-hour bedrest. Wean TR band and resume IV fluids and home cardiovascular medications. Shamar Bravo MD AFNichelle/LESLIE /[id number] CALLI
--- NOTE | 2019-07-31 21:43 | NUR ---
SPOKE TO MD NIEVES REGARDING S/P FALL. NEW ORDERS RECEIVED.
--- NOTE | 2019-07-31 21:58 | NUR ---
SPOKE TO SONDARLING REGARDING FALL. PROVIDED CALLBACK NUMBER TO NURSES STATION IF ANY ADDITIONAL INFORMATION NEEDED.
--- NOTE | 2019-07-31 22:10 | NUR ---
PT TRANSPORTED BY WHEELCHAIR WITH OXYGEN AT 2L TO RADIOLOGY FOR CT, AND (L) ARM XRAY.
--- NOTE | 2019-07-31 22:30 | NUR ---
PT RETURNED FROM RADIOLOGY, 2 PERSON ASSIST TO BED. PT IS AAOX3, RR EVEN AND NON-LABORED, O2 BY NC AT 2L. LEFT PT (L) SIDE LAYING IN BED. BED IN LOW LOCKED POSITION, SIDE RAILS UPX3, CALL LIGHT AND PHONE WITHIN REACH. BED ALARM ACTIVATED ZONE 2.
--- NOTE | 2019-07-31 22:42 | NUR ---
ALERTED TO PATIENTS ROOM BY BED ALARM, PT WAS MOVING TO SIT ON SIDE OF BED. PT REQUESTING TO GO TO THE BATHROOM. WRAPPER OFF ASSISTED PT TO USE URINAL AND LEFT PT LAYING SEMI FOWLERS IN BED, BED IN LOW LOCKED POSITION, SIDE RAILS UPX3, CALL LIGHT AND PHONE WITHIN REACH. BED ALARM ACTIVATED ZONE 2.
[2019-07-31] MEDS: GABAPENTIN 300 MG CAP PO SCH (22:45)
--- NOTE | 2019-07-31 22:48 | Diagnostic Imaging Report ---
EXAMINATION: Head CT without contrast. HISTORY:Status post fall. COMPARISON:None. TECHNIQUE: Multidetector axial images were obtained from the foramen magnum to the vertex without contrast. The images were reconstructed using brain and bone algorithms. Thin section brain images were reformatted into coronal and sagittal planes. Dose modulation, iterative reconstruction, and/or weight based adjustment of the mA/kV was utilized to reduce the radiation dose to as low as reasonably achievable. Intravenous contrast: None IMAGE QUALITY: Suboptimal evaluation due to motion artifacts. FINDINGS: Skull/scalp: No lytic or blastic. lesions. No surgical changes. Parenchyma: Suboptimal evaluation due to motion artifacts, despite the limitation no gross acute hemorrhage, mass or acute major vascular territorial infarct. Nonspecific supratentorial white matter patchy hypodensity are likely related to small vessel ischemic changes. Arteries: No density suggestive of thrombosis. Atherosclerotic calcification in bilateral carotid siphon. Dural sinuses: No abnormal density suggestive of thrombosis. Ventricles: Marked ventriculomegaly disproportionate to the amount of cerebral volume loss raises concern for normal pressure hydrocephalus in appropriate clinical setting. Extra-axial spaces: Asymmetric prominence of extra-axial space in the anterior aspect of right middle cranial fossa may be secondary to volume loss or represent underlying arachnoid cyst. Brain volume: Predominant right more than left anteromedial temporal lobe volume loss with prominent bilateral sylvian fissures.. Craniocervical junction: No mass, Chiari malformation, or basilar invagination. Sella: No mass. Paranasal/mastoid sinuses: Imaged portions unremarkable. IMPRESSION: 1. Suboptimal evaluation due to motion artifacts, despite the limitation no gross acute posttraumatic intracranial abnormality. 2. Marked ventriculomegaly disproportionate to the amount of cerebral volume loss raises concern for normal pressure hydrocephalus in appropriate clinical setting. 3. Mild supratentorial white matter microvascular ischemic changes. 4. Right more than left anteromedial temporal lobe volume loss, may represent underlying Alzheimer's disease in appropriate clinical setting. Signed by: Dr. Flory Dietz M.D. on 07/31/2019 10:45 PM
--- NOTE | 2019-07-31 23:06 | Diagnostic Imaging Report ---
HUMERUS LEFT 2+VIEWS - 2 views HISTORY: Pain. COMPARISON: None available. FINDINGS: Bones: No acute displaced fracture. Chronic healed fracture deformity of the mid humeral shaft. Osseous alignment is within normal limits. Joints: Moderate arthrosis of the left shoulder. Soft tissues: The soft tissues appear unremarkable. IMPRESSION: No acute radiographic abnormality. Signed by: Kelechi Clemons MD on 07/31/2019 11:03 PM
--- NOTE | 2019-07-31 23:07 | Diagnostic Imaging Report ---
FOREARM LEFT 2 VIEW - 3 views HISTORY: Pain. COMPARISON: None available. FINDINGS: Bones: Osseous demineralization. No acute displaced fracture. Chronic healed fracture deformities of the left distal radius and ulna. Osseous alignment is within normal limits. Joints: The joint spaces are well-maintained. Soft tissues: Vascular calcifications. IMPRESSION: No acute radiographic abnormality. Signed by: Kelechi Clemons MD on 07/31/2019 11:03 PM
[2019-08-01] VITALS: BP 165/75
[2019-08-01] MEDS: ALBUTEROL SULF 0.083% NEB SOLN 3 ML NEB NEB SCH ×2 (03:00→07:25)
[2019-08-01 04:00] VITALS: BP 139/54
--- NOTE | 2019-08-01 07:00 | NUR ---
RCD PT AT BED PT IS CONFUSED TRYING TO JUMP OUT OF BED ON BED IV PATENT BED LOW AND LOCKED CALL LIGHT IN REACH
--- NOTE | 2019-08-01 07:08 | NUR ---
REPORT GIVEN TO [facility] NURSE. AAOX3. RESTING IN BED. BED LOCKED AND IN LOW POSITION. CALL LIGHT WITHIN REACH. NO SIGNS OF IV INFILTRATION. BED ALARM ACTIVATED.
[2019-08-01] MEDS: BUDESONIDE 0.5MG/2 ML NEB INH SCH (07:25)
[2019-08-01] MEDS ORDERED: GLIPIZIDE 5 MG TAB PO SCH (07:30)
[2019-08-01 08:00] VITALS: BP 180/79
[2019-08-01 08:38] VITALS: BP 180/79
[2019-08-01] MEDS: METOPROLOL SUCCINATE 25 MG TAB XL PO SCH (09:00)
[2019-08-01] MEDS: AMLODIPINE BESYLATE 5 MG TAB PO SCH (09:00)
[2019-08-01] MEDS ORDERED: CLOPIDOGREL BISULFATE 75 MG TAB PO SCH (09:00)
[2019-08-01] MEDS ORDERED: ASPIRIN 81 MG ENTERIC COATED PO SCH (09:00)
[2019-08-01] MEDS: GABAPENTIN 300 MG CAP PO SCH (09:00)
[2019-08-01] MEDS ORDERED: FUROSEMIDE 20 MG TAB PO SCH (09:00)
[2019-08-01] MEDS ORDERED: PLAVIX PO ×2 (09:56→09:57)
[2019-08-01] MEDS ORDERED: PLAVIX75 MG PO (09:58)
--- NOTE | 2019-08-01 10:34 | NUR ---
RCD PT AT BED PT IS ALERT AND ORIENTED PT RESTING ON BED IV PATENT BED LOW AND LOCKED CALL LIGHT IN REACH
--- NOTE | 2019-08-01 11:23 | Progress Note ---
DATE: 08/01/2019 Cardiology Progress Note SUBJECTIVE: Denies chest pain or shortness of breath. Stress test this a.m. Reports to follow. OBJECTIVE: VITAL SIGNS: Temperature 98.1, heart rate 75, blood pressure 180/79, respiratory rate 18, O2 saturation 97%, BMI 30.3. GENERAL: No acute distress. Alert. NECK: No JVD. CHEST: Clear to auscultation. CARDIOVASCULAR: Regular rate and rhythm. Normal S1 and S2. Crescendo systolic ejection murmur. No S3 or S4. ABDOMEN: Soft. Bowel sounds positive. EXTREMITIES: No edema. CARDIOVASCULAR MEDICATIONS: Reviewed. Metoprolol succinate 25 mg daily, aspirin 81 mg daily, clopidogrel 75 mg daily, atorvastatin 10 mg every night at bedtime, nitroglycerin p.r.n., amlodipine 5 mg daily. LABORATORY DATA: Studies reviewed. Creatinine 1.4, glucose 61. White blood cells 7.04, hemoglobin 10, platelets 220. ASSESSMENT AND PLAN: A 79-year-old man presents with: 1. Chest discomfort, atypical. 2. Moderate aortic stenosis. 3. Hypertension. 4. Diabetes mellitus. 5. Dyslipidemia. 6. Anemia. RECOMMENDATIONS: 1. Stress test result pending. Upon completion of post stress images, we will review. If reassuring results, okay to discharge with outpatient followup in 4 weeks. He will need serial evaluation for his aortic stenosis. This has been discussed with the patient. 2. Resume beta-moira dosing. Blood pressure elevated today. Continue rest of cardiovascular medications. Thank you for the opportunity to participate in the care of this patient. MD ALDO Spain/MODL /[id number]
--- NOTE | 2019-08-01 12:48 | Discharge Summary ---
DISCHARGING PHYSICIAN: Shamar Bravo M.D. ADMITTING DIAGNOSES: 1. Unstable angina, abnormal stress test, here for cardiac catheterization. 2. Hypertension. 3. Diabetes. 4. Neuropathy. 5. History of cerebrovascular disease. DISCHARGE DIAGNOSES: 1. Unstable angina, status post RCA into RPDA, drug-eluting stent percutaneous coronary intervention. 2. Hypertension. 3. Diabetes. 4. Neuropathy. 5. History of cerebrovascular disease. PROCEDURES PERFORMED DURING HOSPITALIZATION: Coronary angiography and percutaneous coronary intervention. DISPOSITION: Discharged to home with self-care and assistance with family. DISCHARGE INSTRUCTIONS: Restrictions upon discharge, procedure site care and precautions. MEDICATIONS UPON DISCHARGE: Please see medication reconciliation form. Prescriptions provided to the patient. HOSPITALIZATION SUMMARY: The patient underwent elective coronary angiography and RCA to RPDA drug-eluting stent PCI with good angiographic results. He has been on observation overnight without any recurrent chest discomfort or shortness of breath. He was found kneeling down next to bedside. It was unclear if the patient had a fall or not, however, thorough physical examination revealed no evidence of trauma. The patient voices no concerns and reported he was kneeling and had not had mechanical fall or fainting spells. Imaging studies were also performed. Today, he has no complaints. He is accompanied by his son at bedside. Follow up in 4 weeks. MD ALDO Spain/KONSTANTINL /[id number]
[2019-08-02] MEDS ORDERED: METFORMIN HCL 500 MG TAB CR PO SCH (17:00)
== END 2019-08-01 10:35 | disposition home or self-care (01) ==
LOC: CATH LAB 07:39 → CATH LAB V 11:42 → MED/SURG 17:23
PROVIDERS: ADMIT Internal Medicine Cardiovascular Disease; ATTEND Internal Medicine Cardiovascular Disease
DX: I20.0 Unstable angina (principal); R94.31 Abnormal electrocardiogram [ECG] [EKG]; I70.219 Atherosclerosis of native arteries of extremities with intermittent claudication, unspecified extremity; I67.9 Cerebrovascular disease, unspecified; E78.5 Hyperlipidemia, unspecified; E66.01 Morbid (severe) obesity due to excess calories; R60.0 Localized edema; Z01.810 Encounter for preprocedural cardiovascular examination; I10 Essential (primary) hypertension; E11.42 Type 2 diabetes mellitus with diabetic polyneuropathy; Z68.30 Body mass index [BMI] 30.0-30.9, adult; Z79.82 Long term (current) use of aspirin; Z79.84 Long term (current) use of oral hypoglycemic drugs
CPT/HCPCS: 93458; C9600; 36415; 70450; 80053; 80061; 82948; 85025; 85610; 85730; 87635; 92928; 94640; 99152; 99153; C1725; C1760; C1769; C1874; C1887; G0378; J2001; J2250; J3010; J7030; Q9967

== ENCOUNTER 2020-05-23 11:54 | Inpatient (IN) | payer MEDICARE ==
[~2020-05-23] VITALS: Ht 167.6 cm; Wt 85.3 kg
[2020-05-23] VITALS (9 sets, daily range): BP systolic 146–165; BP diastolic 63–96
[~2020-05-23 11:54] MED LIST changes: +AMLODIPINE BESYL5 MG PO; +BUDESONIDE0.5 MG/2 M INH; +METFORMIN HCL500 M2 PO; +METOPROLOL SUCC25 MG PO; +NITROGLYCERIN0.4 MG SL; +PLAVIX PO; +PLAVIX75 MG PO; +TRAZODONE HCL50 MG PO
[2020-05-23] MEDS ORDERED: SODIUM CHLORIDE 0.9% 1000ML 1,000 ML IV STA (12:21)
[2020-05-23 12:33] LABS: BASOPHILS % 0.2 % (0.0-1.0); HEMATOCRIT 28.6 % (38.2-49.6); HEMOGLOBIN 8.5 g/dL (14.0-18.0); LYMPHOCYTES # (AUTO) 0.4 (1.0-3.2); LYMPHOCYTES % 7.7 % (18.0-39.1); MEAN CORPUSCULAR HEMOGLOBIN 27.8 pg (28-32); MEAN CORPUSCULAR HGB CONC 29.7 g/dL (31-35); MEAN CORPUSCULAR VOLUME 93.5 fL (81-99); MONOCYTES # (AUTO) 0.3 (0.2-0.8); MONOCYTES % 4.9 % (4.4-11.3); NEUTROPHILS # (AUTO) 4.6 (2.1-6.9); NEUTROPHILS % 85.7 % (38.7-80.0); PLATELET COUNT 157 x10e3/uL (140-360); RED BLOOD COUNT 3.06 x10e6/uL (4.3-5.7); RED CELL DISTRIBUTION WIDTH 15.2 % (11.7-14.4)
[2020-05-23 12:41] LABS: PROTHROMBIN TIME 13.8 seconds (11.9-14.5)
[2020-05-23 12:50] LABS: ALBUMIN 3.2 g/dL (3.5-5.0); ALBUMIN/GLOBULIN RATIO 0.7 (0.8-2.0); ANION GAP 17.3 mmol/L (8-16); CALCIUM 8.6 mg/dL (8.4-10.2); CREATININE, SERUM 2.14 mg/dL (0.72-1.25); MAGNESIUM 1.7 MG/DL (1.3-2.1); POTASSIUM 5.3 mmol/L (3.5-5.1)
[2020-05-23 12:58] LABS: CREATINE KINASE MB 0.7 ng/mL (0-5.0)
[2020-05-23 13:12] LABS: B-TYPE NATRIURETIC PEPTIDE2 148.1 pg/mL (0-100)
[2020-05-23] MEDS: DEXAMETHASONE SOD PHOS 10 MG/1 ML VIAL IV SCH (15:08)
[2020-05-23] MEDS: CEFEPIME 2 GM/NS 0.9% 100 ML 100 ML IV SCH (15:08)
[2020-05-23] MEDS: AZITHROMYCIN 500MG/NS 250 ML 250 ML IV SCH (15:26)
[2020-05-23 15:30] LABS: COLOR,URINE YELLOW (YELLOW); KETONES,URINE TRACE (NEGATIVE); LEUKOCYTE ESTERASE ,URINE NEGATIVE (NEGATIVE); NITRITE,URINE NEGATIVE (NEGATIVE); PROTEIN,URINE DIPSTICK 2+ (NEGATIVE); URINE UROBILINOGEN 0.2 mg/dL (0.2 - 1)
[2020-05-23] MEDS ORDERED: DEXTROSE 50% SYRINGE 50 ML IV PRN (15:30)
[2020-05-23] MEDS ORDERED: SODIUM CHLORIDE 0.9% 1000ML 1,000 ML IV ONE (15:30)
[2020-05-23 15:31] LABS: CLARITY,URINE CLOUDY (CLEAR)
[2020-05-23 15:38] LABS: ABG HCO3 29 mmol/L (22-26); ABG PCO2 89 mmHg (35-45); ABG PH 7.12 (7.35-7.45); ABG PO2 123 mmHg (80-105); ABG TCO2 32
[2020-05-23 15:43] LABS: AMORPHOUS SEDIMENT,URINE MANY (FEW); BACTERIA,URINE MANY /HPF; EPITHELIAL CELLS,URINE FEW /LPF; RBC,URINE 0-5 /HPF (0-5); WBC,URINE (MAN) 0-5 /HPF (0-5)
[2020-05-23 16:46] LABS: ABG HCO3 28 mmol/L (22-26); ABG PCO2 79 mmHg (35-45); ABG PH 7.16 (7.35-7.45); ABG PO2 159 mmHg (80-105); ABG TCO2 31
[2020-05-23] MEDS ORDERED: ENOXAPARIN 30 MG/0.3 ML SYR SC SCH (17:00)
[2020-05-23] MEDS ORDERED: PROPOFOL IV EMULSION 10MG/ML 100 ML IV PRN (17:00)
[2020-05-23] MEDS: ENOXAPARIN 30 MG/0.3 ML SYR SC SCH (17:28)
[2020-05-23] MEDS: INSULIN LISPRO 100 UNIT/1 ML 3ML VIAL SQ SCH (17:29)
[2020-05-23] MEDS ORDERED: ACETAMINOPHEN 325 MG/10 ML UDC NG PRN (17:30)
[2020-05-23 17:36] LABS: ABG HCO3 29 mmol/L (22-26); ABG PCO2 90 mmHg (35-45); ABG PH 7.12 (7.35-7.45); ABG PO2 173 mmHg (80-105); ABG TCO2 32
[2020-05-23] MEDS: ATORVASTATIN 20 MG TAB PO SCH (21:00)
[2020-05-23] MEDS ORDERED: FUROSEMIDE INJ 10 MG/ML 4 ML VIAL IV SCH (21:00)
[2020-05-23 21:06] LABS: ABG HCO3 27 mmol/L (22-26); ABG PCO2 72 mmHg (35-45); ABG PH 7.19 (7.35-7.45); ABG PO2 88 mmHg (80-105); ABG TCO2 30
[2020-05-23 22:18] LABS: CREATINE KINASE MB 1.3 ng/mL (0-5.0)
[2020-05-24] VITALS (26 sets, daily range): BP systolic 97–189; BP diastolic 49–92
[2020-05-24] MEDS: INSULIN LISPRO 100 UNIT/1 ML 3ML VIAL SQ SCH ×4 (00:30→18:30)
[2020-05-24 05:05] LABS: BASOPHILS % 0.3 % (0.0-1.0); HEMATOCRIT 29.2 % (38.2-49.6); HEMOGLOBIN 8.6 g/dL (14.0-18.0); LYMPHOCYTES # (AUTO) 0.3 (1.0-3.2); LYMPHOCYTES % 4.9 % (18.0-39.1); MEAN CORPUSCULAR HEMOGLOBIN 27.2 pg (28-32); MEAN CORPUSCULAR HGB CONC 29.5 g/dL (31-35); MEAN CORPUSCULAR VOLUME 92.4 fL (81-99); MONOCYTES # (AUTO) 0.5 (0.2-0.8); MONOCYTES % 7.9 % (4.4-11.3); NEUTROPHILS # (AUTO) 5.5 (2.1-6.9); PLATELET COUNT 185 x10e3/uL (140-360); RED BLOOD COUNT 3.16 x10e6/uL (4.3-5.7); RED CELL DISTRIBUTION WIDTH 14.9 % (11.7-14.4)
[2020-05-24 05:35] LABS: ALBUMIN 2.9 g/dL (3.5-5.0); ALBUMIN/GLOBULIN RATIO 0.6 (0.8-2.0); ANION GAP 19.4 mmol/L (8-16); CALCIUM 8.5 mg/dL (8.4-10.2); CREATININE, SERUM 2.42 mg/dL (0.72-1.25); POTASSIUM 5.4 mmol/L (3.5-5.1)
[2020-05-24 05:59] LABS: CREATINE KINASE MB 2.3 ng/mL (0-5.0)
[2020-05-24] MEDS: ASPIRIN 81 MG CHEW TAB PO SCH (08:28)
[2020-05-24] MEDS ORDERED: HYDRALAZINE HCL 20 MG/ML VIAL ONE (08:30)
[2020-05-24] MEDS: HYDRALAZINE HCL 20 MG/ML VIAL IV PRN ×2 (08:39→15:07)
[2020-05-24] MEDS: DEXAMETHASONE SOD PHOS 10 MG/1 ML VIAL IV SCH (08:45)
[2020-05-24] MEDS: METOPROLOL TARTRATE INJ 1 MG/ML VIAL IV SCH ×3 (08:46→18:16)
[2020-05-24] MEDS: CLOPIDOGREL BISULFATE 75 MG TAB PO SCH (09:00)
[2020-05-24] MEDS ORDERED: SOD POLYSTYRENE SULFONATE SUSP 15 GM/60 ML BTL PO ONE (09:30)
[2020-05-24] MEDS ORDERED: SODIUM BICARBONATE 8.4% INJ 50 ML SYR IV ONE ×2 (09:30)
[2020-05-24] MEDS: CHLOROTHIAZIDE SODIUM 500 MG VIAL IV SCH ×2 (09:34→21:00)
[2020-05-24] MEDS: ASPIRIN 300 MG SUPP PR SCH (09:49)
[2020-05-24 09:55] LABS: CREATININE,URINE RANDOM 102.6 mg/dL (63-166); TOTAL PROTEIN, URINE 145.3 mg/dL (1-14)
[2020-05-24] MEDS ORDERED: RISPERIDONE 0.5 MG TAB PO PRN (10:15)
[2020-05-24] MEDS ORDERED: HALOPERIDOL LACTATE 5 MG/ML VIAL IM ONE (11:15)
[2020-05-24] MEDS ORDERED: HALOPERIDOL LACTATE 5 MG/ML VIAL ONE (11:21)
[2020-05-24] MEDS: FUROSEMIDE INJ 100 MG in SODIUM CHLORIDE 0.9% 100 ML 90 ML IV SCH ×4 (11:22→17:35)
[2020-05-24] MEDS ORDERED: HALOPERIDOL LACTATE 5 MG/ML VIAL IV ONE (12:00)
[2020-05-24] MEDS ORDERED: VECURONIUM BROMIDE FOR INJ 20 MG VIAL IV ONE (12:01)
[2020-05-24] MEDS ORDERED: MIDAZOLAM HCL 2 MG/2 ML VIAL INJ ONE (12:01)
[2020-05-24] MEDS ORDERED: WATER STERILE 10 ML VIAL IV ONE (12:01)
[2020-05-24] MEDS ORDERED: ETOMIDATE 40 MG/ 20ML VIAL IV ONE (12:01)
[2020-05-24] MEDS: DEXMEDETOMIDINE 200MCG/NS 50ML 50 ML IV SCH ×3 (15:22→22:11)
[2020-05-24] MEDS ORDERED: FAMOTIDINE 20 MG/2 ML VIAL IV ONE (15:45)
[2020-05-24] MEDS: CEFEPIME 2 GM/NS 0.9% 100 ML 100 ML IV SCH (15:49)
[2020-05-24] MEDS: ENOXAPARIN 30 MG/0.3 ML SYR SC SCH (18:15)
[2020-05-24] MEDS: ATORVASTATIN 20 MG TAB PO SCH (20:59)
[2020-05-25] VITALS (17 sets, daily range): BP systolic 106–197; BP diastolic 50–121
[2020-05-25] MEDS: INSULIN LISPRO 100 UNIT/1 ML 3ML VIAL SQ SCH ×3 (00:22→12:56)
[2020-05-25] MEDS: DEXMEDETOMIDINE 200MCG/NS 50ML 50 ML IV SCH ×4 (01:37→11:45)
[2020-05-25 05:49] LABS: BASOPHILS % 0.3 % (0.0-1.0); HEMOGLOBIN 9.5 g/dL (14.0-18.0); LYMPHOCYTES # (AUTO) 0.3 (1.0-3.2); LYMPHOCYTES % 3.6 % (18.0-39.1); MEAN CORPUSCULAR HEMOGLOBIN 28.1 pg (28-32); MEAN CORPUSCULAR HGB CONC 31.7 g/dL (31-35); MEAN CORPUSCULAR VOLUME 88.8 fL (81-99); MONOCYTES # (AUTO) 0.4 (0.2-0.8); MONOCYTES % 5.5 % (4.4-11.3); NEUTROPHILS # (AUTO) 6.7 (2.1-6.9); PLATELET COUNT 211 x10e3/uL (140-360); RED BLOOD COUNT 3.38 x10e6/uL (4.3-5.7); RED CELL DISTRIBUTION WIDTH 14.6 % (11.7-14.4)
[2020-05-25] MEDS: METOPROLOL TARTRATE INJ 1 MG/ML VIAL IV SCH ×4 (06:00→13:44)
[2020-05-25 06:52] LABS: ALBUMIN 2.9 g/dL (3.5-5.0); ALBUMIN/GLOBULIN RATIO 0.6 (0.8-2.0); ANION GAP 20.5 mmol/L (8-16); CREATININE, SERUM 2.35 mg/dL (0.72-1.25); MAGNESIUM 1.8 MG/DL (1.3-2.1); PHOSPHORUS 3.7 MG/DL (2.3-4.7); POTASSIUM 4.5 mmol/L (3.5-5.1)
[2020-05-25] MEDS: HYDRALAZINE HCL 20 MG/ML VIAL IV PRN (07:23)
[2020-05-25] MEDS ORDERED: FAMOTIDINE 20 MG/2 ML VIAL IV SCH (09:00)
[2020-05-25] MEDS: ASPIRIN 81 MG CHEW TAB PO SCH (09:00)
[2020-05-25] MEDS: CLOPIDOGREL BISULFATE 75 MG TAB PO SCH (09:00)
[2020-05-25] MEDS ORDERED: LORAZEPAM INJ 2 MG/ML VIAL IV ONE (09:30)
[2020-05-25] MEDS: AZITHROMYCIN 500MG/NS 250 ML 250 ML IV SCH (09:41)
[2020-05-25] MEDS: DEXAMETHASONE SOD PHOS 10 MG/1 ML VIAL IV SCH (09:43)
[2020-05-25] MEDS: ASPIRIN 300 MG SUPP PR SCH (10:06)
[2020-05-25] MEDS ORDERED: DEXTROSE 5% 1,000 ML IV SCH (10:15)
[2020-05-25] MEDS ORDERED: CHLOROTHIAZIDE SODIUM 500 MG VIAL IV ONE (11:00)
[2020-05-25] MEDS: FUROSEMIDE INJ 100 MG in SODIUM CHLORIDE 0.9% 100 ML 90 ML IV SCH (11:50)
[2020-05-25] MEDS ORDERED: LORAZEPAM INJ 2 MG/ML VIAL IV PRN (14:45)
[2020-05-25] MEDS ORDERED: MORPHINE SULFATE INJ 4 MG/ML INJ 1ML IV PRN (14:45)
== END 2020-05-25 17:52 | disposition expired | DRG 177 ==
LOC: ER 12:17 → ERHOLD 15:51 → ICU 17:06 → IMCU 05-25 17:15
PROVIDERS: ADMIT Internal Medicine; ATTEND Internal Medicine
PROC: 3E0333Z Introduction of Anti-inflammatory into Peripheral Vein, Percutaneous Approach (ICD-10-PCS; principal; 2020-05-23)
PROC: 8E0ZXY6 Isolation (ICD-10-PCS; 2020-05-23)
DX: U07.1 COVID-19 (principal); J12.82 Pneumonia due to coronavirus disease 2019; J96.22 Acute and chronic respiratory failure with hypercapnia; J96.21 Acute and chronic respiratory failure with hypoxia; I50.33 Acute on chronic diastolic (congestive) heart failure; J15.9 Unspecified bacterial pneumonia; N17.0 Acute kidney failure with tubular necrosis; I13.0 Hypertensive heart and chronic kidney disease with heart failure and stage 1 through stage 4 chronic kidney disease, or unspecified chronic kidney disease; I69.354 Hemiplegia and hemiparesis following cerebral infarction affecting left non-dominant side; E87.0 Hyperosmolality and hypernatremia; Z91.81 History of falling; N18.30 Chronic kidney disease, stage 3 unspecified; E11.22 Type 2 diabetes mellitus with diabetic chronic kidney disease; F03.90 Unspecified dementia, unspecified severity, without behavioral disturbance, psychotic disturbance, mood disturbance, and anxiety; Z87.442 Personal history of urinary calculi; Z82.49 Family history of ischemic heart disease and other diseases of the circulatory system; Z82.3 Family history of stroke; Z84.89 Family history of other specified conditions; Z66 Do not resuscitate; Z99.81 Dependence on supplemental oxygen; E11.65 Type 2 diabetes mellitus with hyperglycemia; Z95.5 Presence of coronary angioplasty implant and graft; I25.10 Atherosclerotic heart disease of native coronary artery without angina pectoris; E87.5 Hyperkalemia; D63.8 Anemia in other chronic diseases classified elsewhere; Z79.82 Long term (current) use of aspirin; Z79.84 Long term (current) use of oral hypoglycemic drugs
CPT/HCPCS: 36415; 36600; 51700; 70450; 71045; 72125; 74018; 74470; 76604; 76770; 80053; 81001; 82140; 82550; 82553; 82570; 82805; 82948; 83605; 83735; 83880; 84100; 84156; 84300; 84484; 85025; 85610; 85730; 87040; 87086; 93005; 93306; 94660; 99285; J0360; J0456; J1100; J1630; J1650; J1940; J2060; J2250; J2270; J7030; J7070; J7799; U0002